=== PATIENT | female | born 1980 | race Caucasian/White ===

== ENCOUNTER 2018-02-20 18:27 | Inpatient (IN) ==
--- NOTE | 2018-02-20 18:38 | Emergency Department Note ---
ED Disposition Clinical Impression: Hypoxia Community acquired pneumonia Qualifiers: Laterality: right Lung location: lower lobe of lung Qualified Code(s): J18.1 - Lobar pneumonia, unspecified organism Disposition: Admitted As Inpatient Condition on Discharge: Fair Referrals: Provider,Referral, [Primary Care Provider] - Time of Disposition: : - Critical Care Critical Care Time: Yes (Hypoxia,pneumonia) Attestation: On , the high probability of a clinically significant, sudden or life threatening deterioration of the following system(s) required my full and direct attention, intervention and personal management. The time I documented below is in addition to time spent performing reported procedures but includes the following listed in this critical care notation. Total Critical Care Time: 60 Vital system(s) involved:: Respiratory Failure My critical care processes included: Assessment & monitoring of V/S, Initial and Re-exams, Data Review/Interpretation, Coordinating Care, Medication Orders and management, Documentation Medical Decision Making - Medical Records Medical records reviewed: Yes: I reviewed the patient's medical records. - Nikita Inquiry Pt receiving controlled substance: No Nikita was queried for this patient: No Vital Signs: 02/20/18 18:27 02/20/18 19:15 02/20/18 19:36 Temperature 98.1 F Temperature Source Oral Pulse Rate 106 H Pulse Rate [Left Radial] 94 H Respiratory Rate 30 H Blood Pressure [Right Arm] 168/93 Blood Pressure Mean [Right Arm] 118 Blood Pressure Source [Right Arm] Automatic Cuff Blood Pressure Position [Right Arm] Sitting 02 Sat by Pulse Oximetry 94 L 92 L Oxygen Delivery Method Non-Rebreather Venturi Mask Oxygen Flow Rate (LPM) 15 12 - Lab Data Lab Results 02/20/18 18:40: WBC 16.0 H, RBC 4.92, Hgb 15.2, Hct 46.7, MCV 95.0, MCH 31.0, MCHC 32.6, RDW 14.4, Plt Count 360, MPV 8.0, Neut % (Auto) 85.2 H, Lymph % (Auto) 9.6 L, [place] % (Auto) 4.2, Eos % (Auto) 0.7, Baso % (Auto) 0.3, Neut # (Auto) 13.7 H, Lymph # (Auto) 1.5, [place] # (Auto) 0.7, Eos # (Auto) 0.1, Baso # (Auto) 0.1, Total Counted 100, Neutrophils % (Manual) 90 H, Band Neutrophils % 4.0, Lymphocytes % (Manual) 5 L, Monocytes % (Manual) 1 L, Platelet Estimate Normal, RBC Morphology Normal 02/20/18 18:40: Sodium 140, Potassium 3.5, Chloride 104, Carbon Dioxide 24, Anion Gap 15.5 H, BUN 12, Creatinine 1.01, Estimated Creat Clear 129, Estimated GFR 61, Est GFR ( Amer) 74, Glucose 117 H, Calcium 8.7, Troponin I < 0.02 02/20/18 18:40: Lactate 1.6 02/20/18 18:40: B-Natriuretic Peptide 565 H Result diagrams: 02/20/18 18:40 02/20/18 18:40 Orders (Tests/Meds): ED MEDICATIONS Generic Name Dose Route Start Last Admin Trade Name Hong PRN Reason Stop Dose Admin Ceftriaxone Sodium 1 gm/ 50 mls @ 100 mls/hr 02/20/18 19:15 02/20/18 19:21 Sodium Chloride IV 03/06/18 19:14 100 mls/hr Q24H RICHARD Administration Protocol Azithromycin 500 mg/ Sodium 250 mls @ 250 mls/hr 02/20/18 19:15 02/20/18 19:34 Chloride IV 03/06/18 19:14 250 mls/hr Q24H RICHARD Administration Protocol Discontinued Medications Generic Name Dose Route Start Last Admin Trade Name Hong PRN Reason Stop Dose Admin Albuterol/Ipratropium 3 ml 02/20/18 18:35 02/20/18 18:41 Duoneb 3ml Neb IH 02/20/18 18:36 3 ml ONCE ONE Administration Furosemide 40 mg 02/20/18 18:35 02/20/18 18:41 Lasix 40mg/4ml Vial IV 02/20/18 18:36 40 mg ONCE ONE Administration Methylprednisolone Sodium Succinate 125 mg 02/20/18 18:35 02/20/18 18:41 Solu-Medrol 125mg/2ml Vial IV 02/20/18 18:36 125 mg ONCE ONE Administration ORDERS Category Date Time Status Blood Culture Stat Micro 02/20/18 18:40 Received ECG Request by /Nse Stat Y 02/20/18 18:34 Ordered General Adult HPI - General Chief complaint: Shortness of Breath/Dyspnea Stated complaint: SOA Time Seen by Provider: 02/20/18 18:40 Source of Information: Patient - History of Present Illness Onset (ago): hour(s) (5) Location: chest Severity: moderate Quality: constant Consistency: constant Relieving factors: none Exacerbating factors: none Associated symptoms: cough Treatments prior to arrival: none - Related Data Home Medications Medication Instructions Recorded Confirmed No Known Home Medications 02/20/18 02/20/18 Allergies Allergy/AdvReac Type Severity Reaction Status Date / Time No Known Allergies Allergy Unverified 05/20/17 14:37 [facility] History I have reviewed the patient's past medical history: Yes ROS Obtained: Yes All systems reviewed & no additional complaints - Constitutional Constitutional: Reports system reviewed and no additional complaints, except as docu - Cardiovascular Cardiovascular: Reports system reviewed and no additional complaints, except as docu - Respiratory Respiratory: Yes cough, Yes dyspnea, Yes dyspnea on exertion, Yes wheezing - Gastrointestinal Gastrointestingal: Reports: system reviewed and no additional complaints, except as docu - Musculoskeletal Musculoskeletal: Reports system reviewed and no additional complaints, except as docu - Neurologic Neurologic: Reports system reviewed and no additional complaints, except as docu Physical Exam - General General appearance: alert, in distress (in moderate distress) - Head Head exam: atraumatic, normocephalic, normal inspection - Neck Neck exam: Present: normal inspection, full ROM, trachea midline. Absent: meningismus, lymphadenopathy - Respiratory Respiratory exam: Present: respiratory distress - Expanded Respiratory Exam Location: Right: rales, Lower: rales, decreased breath sounds - Cardiovascular Cardiovascular exam: Present: normal rhythm, tachycardia, normal heart sounds. Absent: JVD - Abdominal Exam Abdominal exam: Present: soft, normal bowel sounds. Absent: distention, tenderness, guarding - Neurological Exam Neurological exam: Present: alert, oriented X3 - Psychiatric Psychiatric exam: Present: normal affect, normal mood
[2018-02-20 18:53] LABS: Basophils # 0.1 K/mm3 (0-0.2); Basophils % 0.3 % (0.1-2.0); Eosinophils # 0.1 K/mm3 (0.0-0.4); Eosinophils % 0.7 % (0.1-12.0); Hematocrit 46.7 % (37.0-47.0); Hemoglobin 15.2 g/dL (12.2-16.2); Lymphocytes # 1.5 K/mm3 (0.7-4.5); Lymphocytes % 9.6 K/mm3 (10-50); Mean Corpuscular HGB Conc 32.6 g/dL (31.8-35.4); Monocytes # 0.7 K/mm3 (0.1-1.0); Monocytes % 4.2 % (1.7-9.3); Neutrophils # 13.7 K/mm3 (1.8-7.8); Neutrophils % 85.2 % (37.0-80.0); Platelet Count 360 K/mm3 (142-424); Red Blood Count 4.92 M/mm3 (4.20-5.40); Red Cell Distribution Width 14.4 % (11.5-17.5)
[2018-02-20 19:16] LABS: Anion Gap 15.5 mEq/L (5-15); Blood Urea Nitrogen 12 mg/dL (7-18); Calcium 8.7 mg/dL (8.5-10.1); Carbon Dioxide 24 mmol/L (21.0-32.0); Chloride 104 mmol/L (98-107); Glucose 117 mg/dL (74-106); Potassium 3.5 mmoL/L (3.5-5.1); Sodium 140 mmol/L (136-145)
[2018-02-20 19:40] LABS: Lymphocytes % 5 % (10-50); Monocytes % 1 % (2-9); Neutrophils % 90 % (42-76); RBC Morphology Normal; Total Cells Counted 100
[2018-02-21 06:07] LABS: Basophils % 0.1 % (0.1-2.0); Eosinophils % 0.4 % (0.1-12.0); Hemoglobin 15.1 g/dL (12.2-16.2); Lymphocytes # 0.5 K/mm3 (0.7-4.5); Lymphocytes % 6.5 K/mm3 (10-50); Mean Corpuscular HGB Conc 32.2 g/dL (31.8-35.4); Mean Corpuscular Hemoglobin 30.6 pg (27.0-31.2); Mean Corpuscular Volume 95.1 fl (81-99); Mean Platelet Volume 8.1 fl (7.4-10.4); Monocytes # 0.2 K/mm3 (0.1-1.0); Monocytes % 2.2 % (1.7-9.3); Neutrophils # 7.5 K/mm3 (1.8-7.8); Neutrophils % 90.9 % (37.0-80.0); Platelet Count 307 K/mm3 (142-424); Red Blood Count 4.94 M/mm3 (4.20-5.40); Red Cell Distribution Width 14.2 % (11.5-17.5); White Blood Count 8.2 K/mm3 (4.8-10.8)
[2018-02-21 06:36] LABS: Calcium 8.7 mg/dL (8.5-10.1)
[2018-02-21 07:06] LABS: Lymphocytes % 4 % (10-50); Monocytes % 1 % (2-9); Neutrophils % 85 % (42-76); RBC Morphology Normal; Total Cells Counted 100
--- NOTE | 2018-02-21 08:20 | History & Physical Report ---
*Admission Date: 02/21/18 <NidiaAnna 02/21/18 08:29> *Chief complaint: SOA, cough <NidiaAnna 02/21/18 08:29> *History of present illness: Ms. Fonseca is a 37-year-old female with no significant medical history. She states over the past 3-4 days she has developed a productive cough and has felt poorly. Yesterday she began wheezing and became extremely short of breath. She presented to the emergency room and her oxygen saturation was in the 70s. A chest x-ray showed bilateral pneumonia. She was admitted for further evaluation and treatment. Of note she has had pneumonia one other time in the past approximately 3 years ago and she states at that time, the pneumonia did cause some type of heart problem and she had to be seen by Dr. Gamble. She has no PCP. <NidiaAnna 02/21/18 08:29> [facility] History Medical History: Denies:: Cancer, Diabetes Mellitus Type 1, Diabetes Mellitus Type 2, MRSA <Anna Jacob 02/21/18 08:29> Other Medical History: Reports: Sinus Problems <Tomer Jacoba 02/21/18 08:29> Other Surgeries: Yes: No Previous Surgery <Anna Jacob 02/21/18 08:29> - *Social History Educational Level: Attended High School <Anna Jacob 02/21/18 08:29> Smoking Status: Never smoker <Tmoer Jacoba 02/21/18 08:29> Alcohol Intake: never <Anna Jacob 02/21/18 08:29> Occupational Status: employed <Anna Jacob 02/21/18 08:29> Housing: house <Anna Jacob 02/21/18 08:29> Household Members: spouse, children <Anna Jacob 02/21/18 08:29> - Psychiatric History Expresses thoughts of harming self/others: None <Anna Jacob 02/21/18 08:29> Suicide Plan Description: No Plan <Anna Jacob 02/21/18 08:29> *Family Hx:: Asthma, Cancer, Diabetes, Heart Attack, Hypertension <Anna Jacob 02/21/18 08:29> Review of Systems - Constitutional Reports weakness, Denies chills, Denies fever(s) <NidiaAnna 02/21/18 08:29> - Eyes Denies blurry vision, Denies double vision <MinavilmaAnna 02/21/18 08:29> - ENT Denies nasal congestion, Denies sore throat <MinavilmaAnna 02/21/18 08:29> - *Cardiovascular Denies chest pain, Denies rapid, pounding, or irregular heartbeat <NidiaAnna 02/21/18 08:29> - *Respiratory Reports chest congestion, Reports cough, Reports shortness of breath, Reports wheezing <MinavilmaAnna - 02/21/18 08:29> - *Gastrointestinal Denies abdominal pain, Denies loose stools, Denies nausea, Denies vomiting <MinavilmaAnna 02/21/18 08:29> - *Genitourinary Denies difficulty urinating, Denies painful urination <NidiaAnna 02/21/18 08:29> - *Musculoskeletal Denies joint pain, Denies body aches <MinavilmaAnna 02/21/18 08:29> - *Neurologic Reports headache(s), Denies dizziness <NidiaAnna 02/21/18 08:29> Meds Home Medications Medication Instructions Recorded Confirmed Type No Known Home Medications 02/20/18 02/20/18 History <FredoniaWero 02/21/18 08:49> Allergies Allergy/AdvReac Type Severity Reaction Status Date / Time No Known Allergies Allergy Unverified 05/20/17 14:37 <Valentino Gleasonian 02/21/18 08:49> Exam Vital signs and Labs for Last 24 Hours: Temp Pulse Resp BP Pulse Ox 97.0 F L 90 26 H 137/95 92 L 02/21/18 07:47 02/21/18 08:08 02/21/18 06:00 02/21/18 06:00 02/21/18 07:47 Laboratory Results - last 24 hr 02/20/18 18:40: WBC 16.0 H, RBC 4.92, Hgb 15.2, Hct 46.7, MCV 95.0, MCH 31.0, MCHC 32.6, RDW 14.4, Plt Count 360, MPV 8.0, Neut % (Auto) 85.2 H, Lymph % (Auto) 9.6 L, [place] % (Auto) 4.2, Eos % (Auto) 0.7, Baso % (Auto) 0.3, Neut # (Auto) 13.7 H, Lymph # (Auto) 1.5, [place] # (Auto) 0.7, Eos # (Auto) 0.1, Baso # (Auto) 0.1, Total Counted 100, Neutrophils % (Manual) 90 H, Band Neutrophils % 4.0, Lymphocytes % (Manual) 5 L, Monocytes % (Manual) 1 L, Platelet Estimate Normal, RBC Morphology Normal 02/20/18 18:40: Sodium 140, Potassium 3.5, Chloride 104, Carbon Dioxide 24, Anion Gap 15.5 H, BUN 12, Creatinine 1.01, Estimated Creat Clear 129, Estimated GFR 61, Est GFR ( Amer) 74, Glucose 117 H, Calcium 8.7, Troponin I < 0.02 02/20/18 18:40: Lactate 1.6 02/20/18 18:40: B-Natriuretic Peptide 565 H 02/21/18 05:50: WBC 8.2 D, RBC 4.94, Hgb 15.1, Hct 47.0, MCV 95.1, MCH 30.6, MCHC 32.2, RDW 14.2, Plt Count 307, MPV 8.1, Neut % (Auto) 90.9 H, Lymph % (Auto) 6.5 L, [place] % (Auto) 2.2, Eos % (Auto) 0.4, Baso % (Auto) 0.1, Neut # (Auto) 7.5, Lymph # (Auto) 0.5 L, [place] # (Auto) 0.2, Eos # (Auto) 0.0, Baso # (Auto) 0.0, Total Counted 100, Neutrophils % (Manual) 85 H, Band Neutrophils % 5.0, Lymphocytes % (Manual) 4 L, Atypical Lymphs % 5.0, Monocytes % (Manual) 1 L , Platelet Estimate Normal, RBC Morphology Normal 02/21/18 05:50: Sodium 143, Potassium 4.0, Chloride 105, Carbon Dioxide 28, Anion Gap 14.0, BUN 13, Creatinine 0.95, Estimated Creat Clear 137, Estimated GFR 65, Est GFR ( Amer) 79, Glucose 129 H, Calcium 8.7 <Wero Gleason - 02/21/18 08:49> Temp Pulse Resp BP Pulse Ox 97.0 F L 90 26 H 137/95 92 L 02/21/18 07:47 02/21/18 08:08 02/21/18 06:00 02/21/18 06:00 02/21/18 07:47 Laboratory Results - last 24 hr 02/20/18 18:40: WBC 16.0 H, RBC 4.92, Hgb 15.2, Hct 46.7, MCV 95.0, MCH 31.0, MCHC 32.6, RDW 14.4, Plt Count 360, MPV 8.0, Neut % (Auto) 85.2 H, Lymph % (Auto) 9.6 L, [place] % (Auto) 4.2, Eos % (Auto) 0.7, Baso % (Auto) 0.3, Neut # (Auto) 13.7 H, Lymph # (Auto) 1.5, [place] # (Auto) 0.7, Eos # (Auto) 0.1, Baso # (Auto) 0.1, Total Counted 100, Neutrophils % (Manual) 90 H, Band Neutrophils % 4.0, Lymphocytes % (Manual) 5 L, Monocytes % (Manual) 1 L, Platelet Estimate Normal, RBC Morphology Normal 02/20/18 18:40: Sodium 140, Potassium 3.5, Chloride 104, Carbon Dioxide 24, Anion Gap 15.5 H, BUN 12, Creatinine 1.01, Estimated Creat Clear 129, Estimated GFR 61, Est GFR ( Amer) 74, Glucose 117 H, Calcium 8.7, Troponin I < 0.02 02/20/18 18:40: Lactate 1.6 02/20/18 18:40: B-Natriuretic Peptide 565 H 02/21/18 05:50: WBC 8.2 D, RBC 4.94, Hgb 15.1, Hct 47.0, MCV 95.1, MCH 30.6, MCHC 32.2, RDW 14.2, Plt Count 307, MPV 8.1, Neut % (Auto) 90.9 H, Lymph % (Auto) 6.5 L, [place] % (Auto) 2.2, Eos % (Auto) 0.4, Baso % (Auto) 0.1, Neut # (Auto) 7.5, Lymph # (Auto) 0.5 L, [place] # (Auto) 0.2, Eos # (Auto) 0.0, Baso # (Auto) 0.0, Total Counted 100, Neutrophils % (Manual) 85 H, Band Neutrophils % 5.0, Lymphocytes % (Manual) 4 L, Atypical Lymphs % 5.0, Monocytes % (Manual) 1 L , Platelet Estimate Normal, RBC Morphology Normal 02/21/18 05:50: Sodium 143, Potassium 4.0, Chloride 105, Carbon Dioxide 28, An ion Gap 14.0, BUN 13, Creatinine 0.95, Estimated Creat Clear 137, Estimated GFR 65, Est GFR ( Amer) 79, Glucose 129 H, Calcium 8.7 <NidiaAnna - 02/21/18 08:29> I & O for Last 24 hours: Intake & Output 02/18/18 02/19/18 02/20/18 02/21/18 11:59 11:59 11:59 11:59 Intake Total 1127 / 1127 Output Total 400 / 400 Balance 727 / 727 Weight 240 lb 3 oz <Wero Gleason - 02/21/18 08:49> Intake & Output 02/18/18 02/19/18 02/20/18 02/21/18 11:59 11:59 11:59 11:59 Intake Total 1127 / 1127 Output Total 400 / 400 Balance 727 / 727 Weight 240 lb 3 oz <NidiaAnna - 02/21/18 08:29> - Constitutional no acute distress <NidiaAnna - 02/21/18 08:29> - *Routine HEENT Exam Head: Present: normocephalic <NidiaAnna 02/21/18 08:29> Eye: Present: EOMI, PERRL <Anna Jacob 02/21/18 08:29> ENT: Present: mucous membranes moist <NidiaAnna 02/21/18 08:29> - *Routine Neck Exam Present: supple. Absent: carotid bruit, lymphadenopathy <Anna Jacob - 0 02/21/18 08:29> - *Routine Respiratory Exam Present: decreased breath sounds (left base), rales (right base). Absent: wheezes <Anna Jacob 02/21/18 08:29> - *Routine Cardiovascular Exam Present: RRR <Anna Jacob 02/21/18 08:29> - *Routine Abdominal Exam Present: soft, normoactive bowel sounds. Absent: tenderness <Anna Jacob 02/21/18 08:29> - *Routine Extremities Exam Absent: cyanosis, clubbing, edema <Anna Jacob 02/21/18 08:29> - *Routine Skin Exam Present: warm. Absent: rash <Anna Jacob 02/21/18 08:29> - *Routine Neurological Exam Present: alert, oriented X3 <Anna Jacob 02/21/18 08:29> H&P: Result - Impressions CXR 1. Bilateral pneumonic appearing infiltrates.- Most extensive throughout right lung more so than left left. The bibasilar infiltrates are most pronounced , but also with areas of diffuse infiltrate throughout RUL & small area of patchy infiltrate left midlung 2. Mild vascular engorgement. Question subtle vascular congestion compared to previous CXR study. Also Question some subtle septal lines right CP angle-May reflect mild interstitial edema component right base <Anna Jacob 02/21/18 08:29> Assessment and Plan (1) Community acquired pneumonia Current visit: Yes Status: Acute Qualifiers: Laterality: right Lung location: lower lobe of lung Qualified Code(s): J18.1 - Lobar pneumonia, unspecified organism Category: Medical Code(s): J18.9 - Pneumonia, unspecified organism (2) Hypoxia Current visit: Yes Status: Acute Category: Medical Code(s): R09.02 - Hypoxemia <Wero Gleason - 02/21/18 08:49> (1) Community acquired pneumonia Current visit: Yes Status: Acute Qualifiers: Laterality: right Lung location: lower lobe of lung Qualified Code(s): J18.1 - Lobar pneumonia, unspecified organism Category: Medical Code(s): J18.9 - Pneumonia, unspecified organism (2) Hypoxia Current visit: Yes Status: Acute Category: Medical Code(s): R09.02 - Hypoxemia <Anna Jacob - 02/21/18 08:17> - Assessment and plan all Dx Assessment and Plan for all problems:: Saw patient, agree with above note. <Wero Gleason - 02/21/18 08:49> Will continue abx and add nebs prn. White blood cell count has improved and patient is feeling much better. Her sats are still 89 on 2 L. Will discuss moving her out of stepdown with Dr. Gleason. <Anna Jacob - 02/21/18 08:29>
--- NOTE | 2018-02-21 10:15 | Pharmacy Consult Notes ---
[facility] Pharmacy VTE Monitoring - Patient Demographics Admission date: 02/21/18 Report Date: 02/21/18 Time: 10:15 Allergies/Adverse Reactions: Patient Allergies No Known Allergies Allergy (Unverified 05/20/17 14:37) Height: 1.7 m Weight: 108.947 kg Patient Problems: Current Active Problems Community acquired pneumonia (Acute) Hypoxia (Acute) - VTE Risk Labs: VTE Related Lab Results Hgb 15.1 g/dL (12.2-16.2) 02/21/18 05:50 Hct 47.0 % (37.0-47.0) 02/21/18 05:50 Plt Count 307 K/mm3 (142-424) 02/21/18 05:50 BUN 13 mg/dL (7-18) 02/21/18 05:50 Creatinine 0.95 mg/dL (0.55-1.02) 02/21/18 05:50 Estimated Creat Clear 137 mL/min (0-300) 02/21/18 05:50 VTE Score: 1 VTE Risk Level: Very Low Risk - Prophylaxis Types of VTE Prophylaxis: TEDS Thigh High
[2018-02-22 06:42] LABS: Basophils % 0.2 % (0.1-2.0); Eosinophils # 0.1 K/mm3 (0.0-0.4); Eosinophils % 1.5 % (0.1-12.0); Hemoglobin 13.3 g/dL (12.2-16.2); Lymphocytes # 0.9 K/mm3 (0.7-4.5); Lymphocytes % 10.3 K/mm3 (10-50); Mean Corpuscular HGB Conc 31.6 g/dL (31.8-35.4); Mean Corpuscular Hemoglobin 30.4 pg (27.0-31.2); Mean Corpuscular Volume 96.2 fl (81-99); Mean Platelet Volume 8.3 fl (7.4-10.4); Monocytes # 0.6 K/mm3 (0.1-1.0); Neutrophils # 7.5 K/mm3 (1.8-7.8); Platelet Count 300 K/mm3 (142-424); Red Blood Count 4.36 M/mm3 (4.20-5.40); Red Cell Distribution Width 14.3 % (11.5-17.5); White Blood Count 9.1 K/mm3 (4.8-10.8)
[2018-02-22 06:51] LABS: Anion Gap 11.7 mEq/L (5-15); Potassium 3.7 mmoL/L (3.5-5.1)
--- NOTE | 2018-02-22 10:40 | Progress Note ---
Internal Medicine - PN: Subj *Date: 02/22/18 *Time: 10:38 Interval history: Patient feels better today, she has been weaned off of supplemental oxygen and would like to be discharged home today. Exam Vital signs and Labs for Last 24 Hours: Temp Pulse Resp BP Pulse Ox 98.0 F 90 17 136/79 91 L 02/22/18 04:00 02/22/18 04:00 02/22/18 04:00 02/22/18 04:00 02/22/18 04:00 Laboratory Results - last 24 hr 02/22/18 06:05: WBC 9.1, RBC 4.36, Hgb 13.3, Hct 42.0, MCV 96.2, MCH 30.4, MCHC 31.6 L, RDW 14.3, Plt Count 300, MPV 8.3, Neut % (Auto) 82.0 H, Lymph % (Auto) 10.3, [place] % (Auto) 6.0, Eos % (Auto) 1.5, Baso % (Auto) 0.2, Neut # (Auto) 7.5, Lymph # (Auto) 0.9, [place] # (Auto) 0.6, Eos # (Auto) 0.1, Baso # (Auto) 0.0 02/22/18 06:05: Sodium 144, Potassium 3.7, Chloride 110 H, Carbon Dioxide 26, Anion Gap 11.7, BUN 21 H D, Creatinine 0.98, Estimated Creat Clear 135, Estimated GFR 63, Est GFR ( Amer) 76, Glucose 104, Calcium 8.0 L I & O for Last 24 hours: Intake & Output 02/19/18 02/20/18 02/21/18 02/22/18 11:59 11:59 11:59 11:59 Intake Total 1127 / 1127 3047 / 3047 Output Total 400 / 400 1500 / 1500 Balance 727 / 727 1547 / 1547 Weight 240 lb 3 oz 245 lb 6 oz Microbiology Reports for the Last 24 Hours: Microbiology 02/21/18 08:15 Sputum - Expectorated Sputum Gram Stain - Final - Constitutional no acute distress - *Routine HEENT Exam Head: Present: normocephalic Eye: Present: EOMI, PERRL ENT: Present: mucous membranes moist - *Routine Neck Exam Present: supple. Absent: lymphadenopathy - *Routine Respiratory Exam Present: CTA bilaterally (left), crackles (few in right base) - *Routine Cardiovascular Exam Present: RRR - *Routine Abdominal Exam Present: soft, normoactive bowel sounds. Absent: tenderness - *Routine Extremities Exam Absent: cyanosis, clubbing, edema - *Routine Skin Exam Present: warm. Absent: rash - *Routine Neurological Exam Present: alert, oriented X3 Assessment and Plan (1) Community acquired pneumonia Current visit: Yes Status: Acute Qualifiers: Laterality: right Lung location: lower lobe of lung Qualified Code(s): J18.1 - Lobar pneumonia, unspecified organism Category: Medical Code(s): J18.9 - Pneumonia, unspecified organism (2) Hypoxia Current visit: Yes Status: Acute Category: Medical Code(s): R09.02 - Hypoxemia - Assessment and plan all Dx Assessment and Plan for all problems:: OK to discharge today with outpatient f/u in about 10 days
--- NOTE | 2018-02-23 15:13 | Discharge Summary ---
General - General Admission date:: 02/20/18 Discharge date: 02/22/18 HPI HPI: Ms. Fonseca is a 37-year-old female with no significant medical history. She states over the past 3-4 days she has developed a productive cough and has felt poorly. Yesterday she began wheezing and became extremely short of breath. She presented to the emergency room and her oxygen saturation was in the 70s. A chest x-ray showed bilateral pneumonia. She was admitted for further evaluation and treatment. Of note she has had pneumonia one other time in the past approximately 3 years ago and she states at that time, the pneumonia did cause some type of heart problem and she had to be seen by Dr. Gamble. She has no PCP. Hospital Course Hospital Course: The patient's CXR showed bilateral pneumonia. She was started on abx and nebs as well as oxygen. She did feel better and was weaned off of supplemental oxygen. She was stable to be discharged home on abx and nebs and will f/u at [facility]. Objective Vital signs: Temp Pulse Resp BP Pulse Ox 98.5 F 92 H 22 148/71 92 L 02/22/18 08:00 02/22/18 12:00 02/22/18 08:00 02/22/18 08:00 02/22/18 08:00 Narrative: - Constitutional no acute distress - *Routine HEENT Exam Head: Present: normocephalic Eye: Present: EOMI, PERRL ENT: Present: mucous membranes moist - *Routine Neck Exam Present: supple. Absent: carotid bruit, lymphadenopathy - *Routine Respiratory Exam Present: decreased breath sounds (left base), rales (right base). Absent: wheezes - *Routine Cardiovascular Exam Present: RRR - *Routine Abdominal Exam Present: soft, normoactive bowel sounds. Absent: tenderness - *Routine Extremities Exam Absent: cyanosis, clubbing, edema - *Routine Skin Exam Present: warm. Absent: rash - *Routine Neurological Exam Present: alert, oriented X3 Results Labs on day of discharge: Preliminary micro results at discharge 02/20/18 18:40 Blood Culture - Preliminary Blood NO GROWTH AFTER 48 HOURS 02/20/18 18:40 Blood Culture - Preliminary Blood NO GROWTH AFTER 48 HOURS DS: Diagnosis - Discharge Diagnosis (1) Community acquired pneumonia Status: Acute (2) Hypoxia Status: Acute Discharge Plan - Patient Discharge Instructions ACTIVITY: Continue current activity DIET: continue same diet Patient Instructions: Pneumonia-Adult - Follow up Plan Follow up with: Wero Gleason MD [Staff Physician] - 03/03/18 Disposition: Home, Self-Intermediate Medications: Home Medications Medication Instructions Recorded Confirmed Type No Known Home Medications 02/20/18 02/20/18 History Prescriptions/Medication Reconciliation: New Azithromycin [Z-Sudhakar 250mg Tab] 250 mg PO UD DOSE PK #6 tab cefUROXime axetil [Ceftin 500mg Tab (GEQ)] 500 mg PO BID #14 tab Albuterol Sulfate [Albuterol HFA Inhaler] 1 puff IH Q4HP PRN #1 inh PRN Reason: Shortness Of Breath Or Wheezing No Action No Known Home Medications
== END 2018-02-22 11:40 | disposition home or self-care (01) ==
LOC: ER 18:27 → 2ND 22:12
PROVIDERS: ADMIT Family Medicine; ATTEND Family Medicine
DX: J18.9 Pneumonia, unspecified organism
CPT/HCPCS: 36415; 71020; 71046; 80048; 83605; 83880; 84484; 85007; 85025; 87040; 87070; 87205; 93005; 94640; 94761; 96365; 96367; 96375; 99284; J0456; J2405

== ENCOUNTER 2018-03-12 23:24 | Inpatient (IN) ==
[2018-03-12 23:50] LABS: Basophils % 0.4 % (0.1-2.0); Eosinophils # 0.1 K/mm3 (0.0-0.4); Hematocrit 50.7 % (37.0-47.0); Hemoglobin 16.1 g/dL (12.2-16.2); Lymphocytes % 18.1 K/mm3 (10-50); Mean Corpuscular HGB Conc 31.8 g/dL (31.8-35.4); Mean Corpuscular Hemoglobin 30.8 pg (27.0-31.2); Mean Platelet Volume 7.9 fl (7.4-10.4); Monocytes # 0.5 K/mm3 (0.1-1.0); Monocytes % 4.3 % (1.7-9.3); Neutrophils # 8.3 K/mm3 (1.8-7.8); Neutrophils % 76.2 % (37.0-80.0); Platelet Count 422 K/mm3 (142-424); Red Blood Count 5.23 M/mm3 (4.20-5.40); Red Cell Distribution Width 14.4 % (11.5-17.5); White Blood Count 10.9 K/mm3 (4.8-10.8)
[2018-03-12 23:54] LABS: ABG Base Excess -3.7 mmol/L (-2.4-2.3); ABG HCO3 20.4 mmhg (22.0-26.0); ABG Oxygen Saturation 89 % (90-100); ABG PCO2 30.3 mmhg (35.0-45.0); ABG PH 7.45 mmol/L (7.35-7.45); ABG PO2 53.8 mmhg (80-100); ABG TCO2 21.3 mmhg (23-27)
[2018-03-12 23:56] LABS: Allen's Test Acceptable; Oxygen 28% NC %
[2018-03-13 00:07] LABS: Anion Gap 15.8 mEq/L (5-15); Blood Urea Nitrogen 20 mg/dL (7-18); Calcium 9.6 mg/dL (8.5-10.1); Carbon Dioxide 22 mmol/L (21.0-32.0); Chloride 107 mmol/L (98-107); Glucose 146 mg/dL (74-106); Potassium 3.8 mmoL/L (3.5-5.1); Sodium 141 mmol/L (136-145)
[2018-03-13 01:20] LABS: Coronavirus 229E Not Detected (NotDetected); Coronavirus NL63 Not Detected (NotDetected); Coronavirus OC43 Not Detected (NotDetected); Coronovirus HKU1,PCR Not Detected (NotDetected)
--- NOTE | 2018-03-13 01:55 | Emergency Department Note ---
ED Disposition Clinical Impression: HCAP (healthcare-associated pneumonia) Disposition: Admitted As Inpatient Condition on Discharge: Good - Critical Care Critical Care Time: No Attestation: On 03/12/18, the high probability of a clinically significant, sudden or life threatening deterioration of the following system(s) required my full and direct attention, intervention and personal management. The time I documented below is in addition to time spent performing reported procedures but includes the following listed in this critical care notation. Medical Decision Making - Medical Records Medical records reviewed: Yes: I reviewed the patient's medical records. - Nikita Inquiry Pt receiving controlled substance: No Vital Signs: 03/12/18 23:28 03/12/18 23:52 03/13/18 00:34 Temperature 97.8 F Temperature Source Oral Pulse Rate [Right Radial] 125 H 120 H 119 H Respiratory Rate 24 24 20 Blood Pressure [Right Arm] 177/105 H 176/103 H 163/102 H Blood Pressure Mean [Right Arm] 129 127 122 Blood Pressure Source [Right Arm] Automatic Cuff Automatic Cuff Automatic Cuff Blood Pressure Position [Right Arm] Sitting Sitting Sitting 02 Sat by Pulse Oximetry 83 L 85 L 95 Oxygen Delivery Method Room Air Nasal Cannula Nasal Cannula Oxygen Flow Rate (LPM) 2 4 03/13/18 01:00 03/13/18 02:00 Temperature Temperature Source Pulse Rate [Right Radial] 116 H 114 H Respiratory Rate 22 24 Blood Pressure [Right Arm] 163/95 H 166/99 H Blood Pressure Mean [Right Arm] 117 121 Blood Pressure Source [Right Arm] Automatic Cuff Automatic Cuff Blood Pressure Position [Right Arm] Supine Supine 02 Sat by Pulse Oximetry 95 92 L Oxygen Delivery Method Nasal Cannula Nasal Cannula Oxygen Flow Rate (LPM) 4 4 - Lab Data Lab results reviewed: Yes: I reviewed the patient's lab results. Lab Results 03/12/18 23:38: Specimen Source Left radial, O2 % 28% nc, ABG pH 7.45, ABG pCO2 30.3 L, ABG pO2 53.8 L, ABG HCO3 20.4 L, ABG Total CO2 21.3 L, ABG O2 Saturation 89 L, ABG Base Excess -3.7 L, Mac Test Acceptable 03/12/18 23:40: WBC 10.9 H, RBC 5.23, Hgb 16.1, Hct 50.7 H, MCV 97.0, MCH 30.8, MCHC 31.8, RDW 14.4, Plt Count 422, MPV 7.9, Neut % (Auto) 76.2, Lymph % (Auto) 18.1, [place] % (Auto) 4.3, Eos % (Auto) 1.0, Baso % (Auto) 0.4, Neut # (Auto) 8.3 H, Lymph # (Auto) 2.0, [place] # (Auto) 0.5, Eos # (Auto) 0.1, Baso # (Auto) 0.0 03/12/18 23:40: D-Dimer 375 03/12/18 23:40: Sodium 141, Potassium 3.8, Chloride 107, Carbon Dioxide 22, Anion Gap 15.8 H, BUN 20 H, Creatinine 1.12 H, Estimated Creat Clear 111, Estimated GFR 54 L, Est GFR ( Amer) 66, Glucose 146 H, Calcium 9.6, Troponin I < 0.02 03/12/18 23:40: Lactate 2.4 H Result diagrams: 03/12/18 23:40 03/12/18 23:40 Orders (Tests/Meds): ED MEDICATIONS Generic Name Dose Route Start Last Admin Trade Name Freq PRN Reason Stop Dose Admin Levofloxacin/Dextrose 750 mg in 150 mls @ 100 mls/hr 03/13/18 02:00 03/13/18 01:59 Levofloxacin 750mg/150ml Premix IV 03/27/18 01:59 100 mls/hr Q24H RICHARD Administration Protocol Piperacillin Sod/Tazobactam 100 mls @ 200 mls/hr 03/13/18 02:00 Sod 4.5 gm/ Sodium Chloride IV 03/27/18 01:59 Q6H RICHARD Protocol Discontinued Medications Generic Name Dose Route Start Last Admin Trade Name Freq PRN Reason Stop Dose Admin Albuterol/Ipratropium 3 ml 03/12/18 23:38 03/12/18 23:42 Duoneb 3ml Neb IH 03/12/18 23:39 3 ml ONCE ONE Administration Furosemide 20 mg 03/13/18 01:29 03/13/18 01:31 Lasix 20mg/2ml Vial IV 03/13/18 01:30 20 mg ONCE ONE Administration Sodium Chloride 1,000 mls @ 999 mls/hr 03/12/18 23:45 03/13/18 00:35 Sod Chlor 0.9% 1000ml Bag IV 03/13/18 00:45 999 mls/hr .Q1H1M RICHARD Administration Methylprednisolone Sodium Succinate 125 mg 03/12/18 23:38 03/12/18 23:42 Solu-Medrol 125mg/2ml Vial IV 03/12/18 23:39 125 mg ONCE ONE Administration ORDERS Category Date Time Status XR chest 2V Stat Exams 03/12/18 23:38 Taken Upper Respiratory Panel, PCR Stat Lab 03/13/18 01:19 Received Blood Culture Stat Micro 03/12/18 23:39 Ordered Arterial Blood Gas Stat RT 03/12/18 23:38 Ordered ECG Request by /Cholo Stat Y 03/12/18 23:38 Ordered - Radiology Data #1 Image(s): Chest Image Reviewed: Yes I reviewed the patient's radiology image Preliminary Findings: Abnormal (bilat pneummonia) - ECG Data Tracing #1 I reviewed this ECG and interpreted as documented below: Arrhythmias present: sinus tach Ischemic changes: non-specific ST-T wave changes - Physician Consults Physician Consulted: javed Reason -: Admission Resp/SOB HPI - General Chief Complaint: Shortness of Breath/Dyspnea Stated Complaint: SOB Time Seen by Provider: 03/12/18 23:50 Mode of Arrival: Ambulatory Limitations: No Limitations Description of Symptoms (Recalled from ER Triage Doc. by RN): Pt reports she had pnumonia and completed antibiotic therapy about 2wks ago. She reports she felt better and then started feeling bad yesterday with productive cough and difficulty breathing. - History of Present Illness pt had been admitted in late jan for cap and treated with iv abx and finished po abx and was doing better and seen by pcp as op last week - over the last 2 days has prod cough and progressive sob with no fever or rash - pt with no hemoptysis MD Complaint: shortness of breath, cough Onset (ago): day(s) Context: recent illness Severity: moderate Associated symptoms: pain with inspiration, cough Treatment prior to arrival: bronchodilator - Related Data Home oxygen amount: none Home Medications Medication Instructions Recorded Confirmed No Known Home Medications 03/13/18 03/13/18 Allergies Allergy/AdvReac Type Severity Reaction Status Date / Time No Known Allergies Allergy Verified 03/12/18 23:36 - Well's Criteria PE Score Clinical signs/symptoms of DVT: No PE is #1 diagnosis or equally likely: No Heart rate is > 100: Yes Immobile at least 3 days, or surgery in past 4 wks: No Previously, obj. diagnosed PE or DVT: No Hemoptysis: No Malignancy w/Rx within 6mo, or palliative: No PE Score: 1 [facility] History I have reviewed the patient's past medical history: Yes Medical History: Denies:: Cancer, Diabetes Mellitus Type 1, Diabetes Mellitus Type 2, MRSA Other Medical History: Reports: Sinus Problems Other Surgeries: Yes: No Previous Surgery - Social History Smoking Status: Never smoker Alcohol Intake: never Occupational Status: employed Housing: house Household Members: spouse, children - Psychiatric History Expresses thoughts of harming self/others: None Suicide Plan Description: No Plan Family Hx:: Asthma, Cancer, Diabetes, Heart Attack, Hypertension ROS Obtained: Yes All systems reviewed & no additional complaints - Constitutional Constitutional: Denies fever(s) - Eyes Eyes: Denies change in vision - ENT Ears, Nose, Mouth, and Throat: Denies sore throat - Cardiovascular Cardiovascular: Denies chest pain - Respiratory Respiratory: No change in phlegm color, Yes cough, Yes dyspnea - Gastrointestinal Gastrointestingal: Denies: abdominal pain - Genitourinary Female Genitourinary: Denies hematuria - Musculoskeletal Musculoskeletal: Denies joint pain - Integumentary/Breasts Skin/Breast: Denies rash - Neurologic Neurologic: Denies seizure-like activity Physical Exam - General General appearance: alert, in no apparent distress - Head Head exam: normocephalic - Eye Eye exam: Present: PERRL, EOMI - ENT ENT exam: Present: mucous membranes moist - Neck Neck exam: Present: trachea midline - Respiratory Respiratory exam: Present: other. Absent: respiratory distress - Cardiovascular Cardiovascular exam: Present: regular rate. Absent: systolic murmur, rubs, gallop - Abdominal Exam Abdominal exam: Present: soft - Extremities Exam Extremities exam: Absent: calf tenderness - Neurological Exam Neurological exam: Present: alert, oriented X3, CN II-XII intact - Psychiatric Psychiatric exam: Present: normal affect - Skin Skin exam: Absent: rash
[2018-03-13 06:29] LABS: Basophils % 0.1 % (0.1-2.0); Eosinophils % 0.1 % (0.1-12.0); Hematocrit 47.5 % (37.0-47.0); Hemoglobin 14.8 g/dL (12.2-16.2); Lymphocytes # 0.4 K/mm3 (0.7-4.5); Mean Corpuscular HGB Conc 31.3 g/dL (31.8-35.4); Mean Corpuscular Hemoglobin 30.2 pg (27.0-31.2); Mean Corpuscular Volume 96.6 fl (81-99); Mean Platelet Volume 7.9 fl (7.4-10.4); Monocytes # 0.2 K/mm3 (0.1-1.0); Monocytes % 1.5 % (1.7-9.3); Neutrophils # 9.9 K/mm3 (1.8-7.8); Neutrophils % 94.3 % (37.0-80.0); Platelet Count 359 K/mm3 (142-424); Red Blood Count 4.91 M/mm3 (4.20-5.40); Red Cell Distribution Width 14.2 % (11.5-17.5); White Blood Count 10.5 K/mm3 (4.8-10.8)
[2018-03-13 06:40] LABS: Albumin Level 3.4 gm/dL (3.4-5.0); Albumin/Globulin Ratio 0.9 (1.1-1.8); Anion Gap 14.8 mEq/L (5-15); Bilirubin,Total 0.6 mg/dL (0.2-1.0); Globulin 3.6 gm/dl (1.3-3.2); Potassium 3.8 mmoL/L (3.5-5.1)
[2018-03-13 06:55] LABS: Lymphocytes % 2 % (10-50); Monocytes % 2 % (2-9); Neutrophils % 94 % (42-76); Total Cells Counted 100
[2018-03-13 06:56] LABS: RBC Morphology Normal
[2018-03-13 06:57] LABS: Calcium 8.6 mg/dL (8.5-10.1)
--- NOTE | 2018-03-13 07:48 | Pharmacy Consult Notes ---
[facility] Pharmacy VTE Monitoring - Patient Demographics Admission date: 03/13/18 Report Date: 03/13/18 Time: 07:47 Allergies/Adverse Reactions: Patient Allergies No Known Allergies Allergy (Verified 03/13/18 02:51) Height: 1.68 m Weight: 106.231 kg Patient Problems: Current Active Problems HCAP (healthcare-associated pneumonia) (Acute) - VTE Risk Labs: VTE Related Lab Results Hgb 14.8 g/dL (12.2-16.2) 03/13/18 05:49 Hct 47.5 % (37.0-47.0) H 03/13/18 05:49 Plt Count 359 K/mm3 (142-424) 03/13/18 05:49 BUN 15 mg/dL (7-18) 03/13/18 05:49 Creatinine 0.99 mg/dL (0.55-1.02) 03/13/18 05:49 Estimated Creat Clear 128 mL/min (0-300) 03/13/18 05:49 Was VTE Risk Assessment Performed: No VTE Score: 2 - Prophylaxis VTE Prophylaxis Ordered?: Yes Types of VTE Prophylaxis: TEDS Knee High Location of Applied Device: Bilateral Lower Extremeties - VTE Diagnosis Confirmed Treatment or plan recommended: Continue Current Treatment
--- NOTE | 2018-03-13 08:16 | History & Physical Report ---
*Admission Date: 03/13/18 <Anna Jacob 03/13/18 08:16> *Chief complaint: SOA, wheezing <Anna Jacob 03/13/18 08:24> *History of present illness: Ms. Fonseca is a 37-year-old female who was just recently discharged from [facility] after an admission for pneumonia. She did follow-up in the office on 03/06/[address] Berkowitz and had finished her antibiotics. She did have a cough and some shortness of breath at that time that had recently developed. Her CBC showed a white blood cell count of 12.7. She was felt to have allergies and was started on Flonase, Mucinex, and Zyrtec. The patient states last night she was at work and had to answer 3 call bells. By the time she got back to her desk, she was extremely short of air and wheezing, therefore her boss brought her to the emergency room to be evaluated. Her oxygen was in the 80s and she was found to have bilateral pneumonia on chest x-ray. She was admitted for further evaluation and treatment. Of note: Her last sputum culture came back normal and her chest x-ray at that time showed a worse pneumonia on the right rather than the left. Her chest x- ray from this admission shows a worsening pneumonia on the left and improvement on the right. <Anna Jacob 03/13/18 08:24> [facility] History Medical History: Reports:: Hypertension Denies:: Cancer, Diabetes Mellitus Type 1, Diabetes Mellitus Type 2, MRSA <Anna Jacob 03/13/18 08:16> Other Medical History: Reports: Sinus Problems <Anna Jacob 03/13/18 08:16> Other Surgeries: Yes: No Previous Surgery <Anna Jacob 03/13/18 08:16> Amputation: No <Anna Jacob 03/13/18 08:16> - *Social History Educational Level: Attended High School <Anna Jacob 03/13/18 08:16> Smoking Status: Never smoker <Anna Jacob 03/13/18 08:16> Alcohol Intake: never <Anna Jacob 03/13/18 08:16> Occupational Status: employed <Anna Jacob 03/13/18 08:16> Housing: house <Anna Jacob 03/13/18 08:16> Household Members: spouse, children <NidiaAnna 03/13/18 08:16> - Psychiatric History Expresses thoughts of harming self/others: None <Tomer Jacoba 03/13/18 08:16> Suicide Plan Description: No Plan <NidiaAnna 03/13/18 08:16> *Family Hx:: Asthma, Cancer, Diabetes, Heart Attack, Hypertension <NidiaMichelle 03/13/18 08:16> Review of Systems - Constitutional Reports fatigue, Denies chills, Denies fever(s), Denies headache(s) <NidiaAnna 03/13/18 08:24> - Eyes Denies blurry vision, Denies double vision <[facility] 03/13/18 08:24> - ENT Denies nasal congestion, Denies sore throat <NidiaAnna - 03/13/18 08:24> - *Cardiovascular Denies chest pain, Denies rapid, pounding, or irregular heartbeat <NidiaAnna - 03/13/18 08:24> - *Respiratory Reports cough, Reports shortness of breath, Reports wheezing <NidiaAnna - 03/13/18 08:24> - *Gastrointestinal Denies abdominal pain, Denies loose stools, Denies nausea, Denies vomiting <NidiaAnna - 03/13/18 08:24> - *Genitourinary Denies difficulty urinating, Denies painful urination <NidiaAnna - 03/13/18 08:24> - *Musculoskeletal Denies joint pain [facility] 03/13/[facility] 08:24> - *Neurologic Denies headache(s), Denies seizure-like activity, Denies dizziness, Denies weakness <NidiaAnna - 03/13/18 08:24> Meds Home Medications Medication Instructions Recorded Confirmed Type RX: Albuterol Sulfate [Albuterol 1 puff INHALATION Q4HP PRN 03/13/18 03/13/18 History HFA Inhaler] <Amira Berkowitz 03/13/18 12:39> Allergies Allergy/AdvReac Type Severity Reaction Status Date / Time No Known Allergies Allergy Verified 03/13/18 02:51 <Sound,Amira - 03/13/18 12:39> Exam Vital signs and Labs for Last 24 Hours: Temp Pulse Resp BP Pulse Ox 97.3 F L 106 H 20 124/86 94 L 03/13/18 11:34 03/13/18 11:40 03/13/18 11:34 03/13/18 11:34 03/13/18 11:40 Laboratory Results - last 24 hr 03/12/18 02:19: Specimen Source Left radial, O2 % 28% nc, ABG pH 7.45, ABG pCO2 30.3 L, ABG pO2 53.8 L, ABG HCO3 20.4 L, ABG Total CO2 21.3 L, ABG O2 Saturation 89 L, ABG Base Excess -3.7 L, Mac Test Acceptable 03/12/18 23:40: WBC 10.9 H, RBC 5.23, Hgb 16.1, Hct 50.7 H, MCV 97.0, MCH 30.8, MCHC 31.8, RDW 14.4, Plt Count 422, MPV 7.9, Neut % (Auto) 76.2, Lymph % (Auto) 18.1, [place] % (Auto) 4.3, Eos % (Auto) 1.0, Baso % (Auto) 0.4, Neut # (Auto) 8.3 H, Lymph # (Auto) 2.0, [place] # (Auto) 0.5, Eos # (Auto) 0.1, Baso # (Auto) 0.0 03/12/18 23:40: D-Dimer 375 03/12/18 23:40: Sodium 141, Potassium 3.8, Chloride 107, Carbon Dioxide 22, Anion Gap 15.8 H, BUN 20 H, Creatinine 1.12 H, Estimated Creat Clear 111, Estimated GFR 54 L, Est GFR ( Amer) 66, Glucose 146 H, Calcium 9.6, Troponin I < 0.02 03/12/18 23:40: Lactate 2.4 H 03/13/18 01:19: Chlamy pneumoniae PCR Not detected, Adenovirus (PCR) Not detected, B.parapertussis DNA PCR Not detected, Coronavirus OC43 (PCR) Not detected, Coronavirus HKU1 (PCR) Not detected, Coronavirus 229E (PCR) Not detected, Coronavirus NL63 (PCR) Not detected, Human Metapneumovir PCR Not detected, Influenza A (H1) PCR Not detected, Influ A (H1N1/09) PCR Not detected, Influenza A (H3) PCR Not detected, Influenza Type A (PCR) Not detected, In fluenza Type B (PCR) Not detected, M. pneumoniae (PCR) Not detected, Parainfluenza 1 (PCR) Not detected, Parainfluenza 2 (PCR) Not detected, Parainfluenza 3 (PCR) Not detected, Parainfluenza 4 (PCR) Not detected, RSV (PCR) Not detected, Entero/Rhino (PCR) Not detected 03/13/18 03:52: Lactate 1.8 03/13/18 05:49: WBC 10.5, RBC 4.91, Hgb 14.8, Hct 47.5 H, MCV 96.6, MCH 30.2, MCHC 31.3 L, RDW 14.2, Plt Count 359, MPV 7.9, Neut % (Auto) 94.3 H, Lymph % (Auto) 4.0 L, [place] % (Auto) 1.5 L, Eos % (Auto) 0.1, Baso % (Auto) 0.1, Neut # (Auto) 9.9 H, Lymph # (Auto) 0.4 L, [place] # (Auto) 0.2, Eos # (Auto) 0.0, Baso # (Auto) 0.0, Total Counted 100, Neutrophils % (Manual) 94 H, Lymphocytes % (Manual) 2 L, Atypical Lymphs % 2.0, Monocytes % (Manual) 2, Platelet Estimate Normal, RBC Morphology Normal 03/13/18 05:49: Sodium 141, Potassium 3.8, Chloride 106, Carbon Dioxide 24, Anion Gap 14.8, BUN 15, Creatinine 0.99, Estimated Creat Clear 128, Estimated GFR 62, Est GFR ( Amer) 76, Glucose 136 H, Calcium 8.6 D, Magnesium 1.8, Total Bilirubin 0.6, AST 39 H, ALT 104 H, Alkaline Phosphatase 104, Total Protein 7.0, Albumin 3.4, Globulin 3.6 H, Albumin/Globulin Ratio 0.9 L <Tin Berkowitza - 03/13/18 12:39> Temp Pulse Resp BP Pulse Ox 97.3 F L 111 H 20 96/68 L 94 L 03/13/18 07:37 03/13/18 07:37 03/13/18 07:37 03/13/18 07:37 03/13/18 07:37 Laboratory Results - last 24 hr 03/12/18 02:19: Specimen Source Left radial, O2 % 28% nc, ABG pH 7.45, ABG pCO2 30.3 L, ABG pO2 53.8 L, ABG HCO3 20.4 L, ABG Total CO2 21.3 L, ABG O2 Saturation 89 L, ABG Base Excess -3.7 L, Mac Test Acceptable 03/12/18 23:40: WBC 10.9 H, RBC 5.23, Hgb 16.1, Hct 50.7 H, MCV 97.0, MCH 30.8, MCHC 31.8, RDW 14.4, Plt Count 422, MPV 7.9, Neut % (Auto) 76.2, Lymph % (Auto) 18.1, [place] % (Auto) 4.3, Eos % (Auto) 1.0, Baso % (Auto) 0.4, Neut # (Auto) 8.3 H, Lymph # (Auto) 2.0, [place] # (Auto) 0.5, Eos # (Auto) 0.1, Baso # (Auto) 0.0 03/12/18 23:40: D-Dimer 375 03/12/18 23:40: Sodium 141, Potassium 3.8, Chloride 107, Carbon Dioxide 22, Anion Gap 15.8 H, BUN 20 H, Creatinine 1.12 H, Estimated Creat Clear 111, Estimated GFR 54 L, Est GFR ( Amer) 66, Glucose 146 H, Calcium 9.6, Troponin I < 0.02 03/12/18 23:40: Lactate 2.4 H 03/13/18 01:19: Chlamy pneumoniae PCR Not detected, Adenovirus (PCR) Not detected, B.parapertussis DNA PCR Not detected, Coronavirus OC43 (PCR) Not detected, Coronavirus HKU1 (PCR) Not detected, Coronavirus 229E (PCR) Not detected, Coronavirus NL63 (PCR) Not detected, Human Metapneumovir PCR Not detected, Influenza A (H1) PCR Not detected, Influ A (H1N1/09) PCR Not detected, Influenza A (H3) PCR Not detected, Influenza Type A (PCR) Not detected, Influenza Type B (PCR) Not detected, M. pneumoniae (PCR) Not detected, Parainfluenza 1 (PCR) Not detected, Parainfluenza 2 (PCR) Not detected, Parainfluenza 3 (PCR) Not detected, Parainfluenza 4 (PCR) Not detected, RSV (PCR) Not detected, Entero/Rhino (PCR) Not detected 03/13/18 03:52: Lactate 1.8 03/13/18 05:49: WBC 10.5, RBC 4.91, Hgb 14.8, Hct 47.5 H, MCV 96.6, MCH 30.2, MCHC 31.3 L, RDW 14.2, Plt Count 359, MPV 7.9, Neut % (Auto) 94.3 H, Lymph % (A uto) 4.0 L, [place] % (Auto) 1.5 L, Eos % (Auto) 0.1, Baso % (Auto) 0.1, Neut # (Auto) 9.9 H, Lymph # (Auto) 0.4 L, [place] # (Auto) 0.2, Eos # (Auto) 0.0, Baso # (Auto) 0.0, Total Counted 100, Neutrophils % (Manual) 94 H, Lymphocytes % (Manual) 2 L, Atypical Lymphs % 2.0, Monocytes % (Manual) 2, Platelet Estimate Normal, RBC Morphology Normal 03/13/18 05:49: Sodium 141, Potassium 3.8, Chloride 106, Carbon Dioxide 24, Anion Gap 14.8, BUN 15, Creatinine 0.99, Estimated Creat Clear 128, Estimated GFR 62, Est GFR ( Amer) 76, Glucose 136 H, Calcium 8.6 D, Magnesium 1.8, Total Bilirubin 0.6, AST 39 H, ALT 104 H, Alkaline Phosphatase 104, Total Protein 7.0, Albumin 3.4, Globulin 3.6 H, Albumin/Globulin Ratio 0.9 L <Anna Jacob - 03/13/18 08:24> I & O for Last 24 hours: Intake & Output 03/11/18 03/12/18 03/13/18 03/14/18 11:59 11:59 11:59 11:59 Intake Total 790 / 790 Balance 790 / 790 Weight 234 lb 3.188 oz <Amira Berkowitz - 03/13/18 12:39> Intake & Output 03/10/18 03/11/18 03/12/18 03/13/18 11:59 11:59 11:59 11:59 Intake Total 790 / 790 Balance 790 / 790 Weight 234 lb 3.188 oz <Anna Jacob 03/13/18 08:16> Microbiology Reports for the Last 24 Hours: Microbiology 03/13/18 02:16 Sputum - Expectorated Sputum Gram Stain - Final <Amira Berkowitz - 03/13/18 12:39> Microbiology 03/13/18 02:16 Sputum - Expectorated Sputum Gram Stain - Final <Anna Jacob 03/13/18 08:16> - Constitutional no acute distress <MinavilmaAnna 03/13/18 08:24> - *Routine HEENT Exam Head: Present: normocephalic <NidiaAnna 03/13/18 08:24> Eye: Present: EOMI, PERRL <NidiaAnna 03/13/18 08:24> ENT: Present: mucous membranes moist <MinavilmaAnna 03/13/18 08:24> - *Routine Neck Exam Present: supple. Absent: lymphadenopathy <MinavilmaAnna 03/13/18 08:24> - *Routine Respiratory Exam Present: decreased breath sounds. Absent: wheezes <NidiaAnna 03/13/18 08:24> - *Routine Cardiovascular Exam Present: RRR <NidiaAnna - 03/13/18 08:24> - *Routine Abdominal Exam Present: soft, normoactive bowel sounds. Absent: tenderness <NidiaAnna 03/13/18 08:24> - *Routine Extremities Exam Absent: cyanosis, clubbing, edema <NidiaAnna 03/13/18 08:24> - *Routine Skin Exam Present: warm. Absent: rash <NidiaAnna 03/13/18 08:24> - *Routine Neurological Exam Present: alert, oriented X3 <NidiaAnna 03/13/18 08:24> H&P: Result - Impressions CXR - Diffuse bilateral pneumonia slightly improved on the right but worse on the left. <Anna Jacob - 03/13/18 08:24> Assessment and Plan (1) HCAP (healthcare-associated pneumonia) Current visit: Yes Status: Acute Category: Medical Code(s): J18.9 - Pneumo tamir, unspecified organism (2) Hypoxia Current visit: No Status: Acute Category: Medical Code(s): R09.02 - Hypoxemia <Anna Jacob - 03/13/18 08:18> (1) HCAP (healthcare-associated pneumonia) Current visit: Yes Status: Acute Category: Medical Code(s): J18.9 - Pneumonia, unspecified organism (2) Hypoxia Current visit: No Status: Acute Category: Medical Code(s): R09.02 - Hypoxemia <ShoAmira - 03/13/18 12:39> - Assessment and plan all Dx Assessment and Plan for all problems:: Patient discharged as she was on RA with 94% all morning. I had given her symbicort sample, levaquin and prednisone for her B/L pneumonia. Will f/u in office in a week. Patient is in the process of getting passport insurance. <Amira Berkowitz - 03/13/18 12:39> Patient was started on antibiotics, oxygen and neb treatments. At this time she is feeling slightly better. She is still on 2 L of oxygen at this time. Will need to wean oxygen prior to discharge. <Anna Jacob - 03/13/18 08:24>
--- NOTE | 2018-03-14 15:56 | Discharge Summary ---
General - General Admission date:: 03/13/18 Discharge date: 03/13/18 HPI HPI: Ms. Fonseca is a 37-year-old female who was just recently discharged from [facility] after an admission for pneumonia. She did follow-up in the office on 03/06/[address] Berkowitz and had finished her antibiotics. She did have a cough and some shortness of breath at that time that had recently developed. Her CBC showed a white blood cell count of 12.7. She was felt to have allergies and was started on Flonase, Mucinex, and Zyrtec. The patient states last night she was at work and had to answer 3 call bells. By the time she got back to her desk, she was extremely short of air and wheezing, therefore her boss brought her to the emergency room to be evaluated. Her oxygen was in the 80s and she was found to have bilateral pneumonia on chest x-ray. She was admitted for further evaluation and treatment. Of note: Her last sputum culture came back normal and her chest x-ray at that time showed a worse pneumonia on the right rather than the left. Her chest x- ray from this admission shows a worsening pneumonia on the left and improvement on the right. Hospital Course Hospital Course: The patient was started on antibiotics, oxygen and neb treatments. She felt better and was able to be weaned off of her oxygen. She was stable to be discharged as her RA sats were 94%. She was given a symbicort sample, levaquin and prednisone for her B/L pneumonia. She will f/u in the office in a week. She is in the process of getting passport insurance. Objective Vital signs: Temp Pulse Resp BP Pulse Ox 97.3 F L 106 H 20 124/86 94 L 03/13/18 11:34 03/13/18 11:40 03/13/18 11:34 03/13/18 11:34 03/13/18 11:40 Narrative: - Constitutional no acute distress - *Routine HEENT Exam Head: Present: normocephalic Eye: Present: EOMI, PERRL ENT: Present: mucous membranes moist - *Routine Neck Exam Present: supple. Absent: lymphadenopathy - *Routine Respiratory Exam Present: decreased breath sounds. Absent: wheezes - *Routine Cardiovascular Exam Present: RRR - *Routine Abdominal Exam Present: soft, normoactive bowel sounds. Absent: tenderness - *Routine Extremities Exam Absent: cyanosis, clubbing, edema - *Routine Skin Exam Present: warm. Absent: rash - *Routine Neurological Exam Present: alert, oriented X3 Results Labs on day of discharge: Preliminary micro results at discharge 03/13/18 02:16 Sputum Culture - Preliminary Sputum - Expectorated Sputum DS: Diagnosis - Discharge Diagnosis (1) HCAP (healthcare-associated pneumonia) Status: Acute (2) Hypoxia Status: Acute Discharge Plan - Patient Discharge Instructions ACTIVITY: Continue current activity DIET: continue same diet Patient Instructions: Pneumonia-Adult, DI for Pneumonia -- Adult - Follow up Plan Follow up with: Amira Berkowitz MD [Staff Physician] - 1 week Disposition: Home, Self-Care Prescriptions/Medication Reconciliation: New levoFLOXacin [Levaquin 500mg tab] 500 mg PO DAILY 7 Days #7 tab predniSONE [Deltasone 20mg tablet] 40 mg PO DAILY 5 Days #10 tab Discontinued Albuterol Sulfate [Albuterol HFA Inhaler] 1 puff INHALATION Q4HP PRN PRN Reason: Shortness Of Breath
== END 2018-03-13 13:00 | disposition home or self-care (01) ==
LOC: ER 23:24 → 2ND 23:24 → OBSVTOIN 03-13 02:34 → 2ND 03-13 02:35
PROVIDERS: ADMIT Family Medicine; ATTEND Emergency Medicine

== ENCOUNTER 2018-03-26 05:10 | Inpatient (IN) ==
--- NOTE | 2018-03-26 05:20 | Emergency Department Note ---
ED Disposition Clinical Impression: Hospital-acquired pneumonia, Acute respiratory failure with hypoxia, Hypoxia, Left shift, Elevated brain natriuretic peptide (BNP) level, Hypoproteinemia, Hypoalbuminemia, Bilateral pleural effusion, Bilateral lower extremity edema Leukocytosis Qualifiers: Leukocytosis type: unspecified Qualified Code(s): D72.829 - Elevated white blood cell count, unspecified Disposition: Admitted As Inpatient Condition on Discharge: Serious Referrals: Amira Berkowitz MD [Primary Care Provider] - Time of Disposition: :25 - Critical Care Critical Care Time: No Attestation: On , the high probability of a clinically significant, sudden or life threatening deterioration of the following system(s) required my full and direct attention, intervention and personal management. The time I documented below is in addition to time spent performing reported procedures but includes the following listed in this critical care notation. Medical Decision Making - Nikita Inquiry Pt receiving controlled substance: No Vital Signs: 03/26/18 05:26 03/26/18 05:41 03/26/18 05:50 Temperature 98.1 F Temperature Source Oral Pulse Rate 113 H Pulse Rate [Right] 125 H 113 H Respiratory Rate 26 H 26 H Blood Pressure [Right Arm] 160/105 H 164/102 H Blood Pressure Mean [Right Arm] 123 122 Blood Pressure Source [Right Arm] Automatic Cuff Blood Pressure Position [Right Arm] Sitting 02 Sat by Pulse Oximetry 77 L 86 L 90 L Oxygen Delivery Method Room Air Nasal Cannula Nasal Cannula Oxygen Flow Rate (LPM) 2 2 03/26/18 06:30 03/26/18 06:32 03/26/18 06:39 Temperature Temperature Source Pulse Rate Pulse Rate [Right] 114 H 112 H Respiratory Rate 24 26 H Blood Pressure [Right Arm] 142/100 H 148/100 H Blood Pressure Mean [Right Arm] 114 116 Blood Pressure Source [Right Arm] Automatic Cuff Blood Pressure Position [Right Arm] Sitting 02 Sat by Pulse Oximetry 83 L 83 L 88 L Oxygen Delivery Method Nasal Cannula Nasal Cannula Nasal Cannula Oxygen Flow Rate (LPM) 2 2 4 03/26/18 06:48 03/26/18 07:07 03/26/18 07:30 Temperature Temperature Source Pulse Rate Pulse Rate [Right] 107 H 114 H 116 H Respiratory Rate 24 24 26 H Blood Pressure [Right Arm] 134/91 H 125/64 136/98 H Blood Pressure Mean [Right Arm] 105 84 110 Blood Pressure Source [Right Arm] Automatic Cuff Blood Pressure Position [Right Arm] Supine 02 Sat by Pulse Oximetry 90 L 90 L 86 L Oxygen Delivery Method Nasal Cannula Nasal Cannula Venturi Mask Oxygen Flow Rate (LPM) 4 4 - Lab Data Lab results reviewed: Yes: I reviewed the patient's lab results. Lab Results 03/26/18 05:20: WBC 19.9 H, RBC 4.95, Hgb 15.3, Hct 47.8 H, MCV 96.4, MCH 30.9, MCHC 32.1, RDW 15.1, Plt Count 443 H, MPV 8.2, Neut % (Auto) 89.5 H, Lymph % (Auto) 6.8 L, [place] % (Auto) 3.1, Eos % (Auto) 0.4, Baso % (Auto) 0.3, Neut # (Auto) 17.8 H, Lymph # (Auto) 1.4, [place] # (Auto) 0.6, Eos # (Auto) 0.1, Baso # (Auto) 0.1, Total Counted 100, Neutrophils % (Manual) 89 H, Band Neutrophils % 2.0, Lymphocytes % (Manual) 5 L, Monocytes % (Manual) 4, Platelet Estimate Slight increase 03/26/18 05:20: PT 9.9, INR 0.96, D-Dimer 267 03/26/18 05:20: Sodium 141, Potassium 4.7, Chloride 106, Carbon Dioxide 19 L, Anion Gap 20.7 H, BUN 19 H, Creatinine 1.31 H, Estimated Creat Clear 99, Estimated GFR 45 L, Est GFR ( Amer) 55 L, Glucose 119 H, Calcium 8.8, Total Bilirubin 0.9, AST 35, ALT 91 H, Alkaline Phosphatase 109, Total Creatine Kinase 87, CK-MB (CK-2) 2.0, CK-MB (CK-2) Rel Index 2.3, Troponin I 0.02, Total Protein 6.3 L, Albumin 3.3 L, Globulin 3.0, Albumin/Globulin Ratio 1.1 03/26/18 05:20: B-Natriuretic Peptide 846 H 03/26/18 05:20: Magnesium 2.4 H 03/26/18 05:20: Lactate 2.5 H 03/26/18 05:27: Specimen Source Right radial, O2 % 28% nc, ABG pH 7.48 H, ABG pCO2 23.2 L, ABG pO2 55.0 L, ABG HCO3 16.9 L, ABG Total CO2 17.6 L, ABG O2 Saturation 89 L, ABG Base Excess -6.6 L, Mac Test Acceptable Result diagrams: 03/26/18 05:20 03/26/18 05:20 Orders (Tests/Meds): ED MEDICATIONS Generic Name Dose Route Start Last Admin Trade Name Hong PRN Reason Stop Dose Admin Levofloxacin/Dextrose 750 mg in 150 mls @ 100 mls/hr 03/26/18 06:00 03/26/18 07:06 Levofloxacin 750mg/150ml Premix IV 04/09/18 05:59 100 mls/hr Q24H RICHARD Administration Protocol Sodium Chloride 1,000 mls @ 75 mls/hr 03/26/18 06:15 03/26/18 06:37 Sod Chlor 0.9% 1000ml Bag IV 04/25/18 06:14 75 mls/hr .[id number] RICHARD Administration Vancomycin HCl 2,000 mg/ 250 mls @ 125 mls/hr 03/26/18 06:11 03/26/18 06:37 Sodium Chloride IV 03/26/18 08:10 125 mls/hr ONCE ONE Administration Miscellaneous 1 each 03/26/18 06:00 03/26/18 06:10 Vancomycin Consult Request * 04/25/18 05:59 1 each CONSULT PHARMACY RICHARD Administration Sodium Chloride 3 ml 03/26/18 06:02 Sodium Chloride 3% 15ml Neb IH 04/25/18 06:01 ONCE PRN INDUCE SPUTUM COLLECTION Discontinued Medications Generic Name Dose Route Start Last Admin Trade Name Hong PRN Reason Stop Dose Admin Albuterol/Ipratropium 3 ml 03/26/18 05:27 03/26/18 05:50 Duoneb 3ml Neb IH 03/26/18 05:28 3 ml ONCE ONE Administration Piperacillin Sod/Tazobactam 100 mls @ 200 mls/hr 03/26/18 05:59 03/26/18 06:37 Sod 3.375 gm/ Sodium Chloride IV 03/26/18 06:00 200 mls/hr ONCE ONE Administration Protocol Iopamidol 70 ml 03/26/18 06:30 03/26/18 06:34 [id number]; 75ml Vial IV 03/26/18 06:31 70 ml ONCE ONE Administration Protocol Sodium Chloride 10 ml 03/26/18 06:30 03/26/18 06:34 Rad-Saline Flush 10ml Syringe IV 03/26/18 06:31 10 ml ONCE ONE Administration Sodium Chloride 40 ml 03/26/18 06:30 03/26/18 06:34 Rad-Ns 50ml Vial IV 03/26/18 06:31 40 ml ONCE ONE Administration ORDERS Category Date Time Status Legionella pneumophila Abs. Stat Lab 03/26/18 07:12 Ordered Mycoplasma Pneumo IGM (Rapid) Stat Lab 03/26/18 07:10 Ordered Pneumococcal Ab (7 Serotype) Stat Lab 03/26/18 07:11 Ordered Respiratory Virus Panel, PCR [Upper Respiratory Panel, Lab 03/26/18 06:33 Received PCR] Stat Urinalysis-Acute [Urinalysis and Microscopic] Stat Lab 03/26/18 05:34 Ordered Blood Culture Stat Micro 03/26/18 05:20 Ordered Sputum Culture & Gram Stain Stat Micro 03/26/18 06:02 Ordered - Radiology Data #1 Image(s): Chest Image Reviewed: Yes I reviewed the patient's radiology image (+) diffuse bilateral pneumonia. 07:[address] [facility] [address] [place] [address] XRay Report Signed Patient: Shelia Fonseca MR#: [id number] : 1980 Acct:[id number] Age/Sex: 37 / F ADM Date: 03/26/18 Loc: ER Attending Dr: Ordering Physician: Hong Castaneda III, DO Date of Service: 03/26/18 Procedure(s): XR chest portable Accession Number(s): [id number] cc: Mac Mccollum MD; Amira Berkowitz MD~ XR chest portable HISTORY: ITS.REASON: Dyspnea ORDERING PHYSICIAN: Hong Castaneda III, DO PATIENT AGE: 37 years COMPARISON: 03/13/2018 FINDINGS: There are low lung volumes. There is cardiomegaly. There is diffuse bilateral pneumonia. This is more severe in the left upper lobe and slightly worse in the right upper lobe when compared to the previous exam. Bilateral lower lobe pneumonia also noted. IMPRESSION: Cardiomegaly with diffuse bilateral pneumonia which is worse in the upper lobes Dictated By: Mac Mccollum MD Signed By: <Electronically signed by Mac Mccollum MD in OV> 03/26/1857 DD/ - CT Data CT Scan: Chest Time Received: 07:[address] Reviewed: Yes: I have viewed the radiologist's interpretation Findings Narrative: 07:[address] [place] [address] CT Scan Report Signed Patient: Shelia Fonseca MR#: [id number] : 1980 Acct:[id number] Age/Sex: 37 / F ADM Date: 03/26/18 Loc: ER Attending Dr: Ordering Physician: Hong Castaneda III, DO Date of Service: 03/26/18 Procedure(s): CT angio chest Accession Number(s): [id number] cc: Mac Mccollum MD; Amira Berkowitz MD~ CT angio chest HISTORY: Shortness of breath, recent pneumonia ITS.REASON: Dyspnea ORDERING PHYSICIAN: Hong Castaneda III, DO PATIENT AGE: 37 years COMPARISON: None TECHNIQUE: Axial images obtained following the administration of 75 mL of Isovue 370 . Sagittal, and coronal reformatted images are also generated and reviewed. All CT scans at the facility use one or more dose reduction, viz: automated exposure control, ma/kV adjustment per patient size (including targeted exams where dose is matched to indication, i.e. head), or iterative reconstruction technique. FINDINGS: There is respiratory motion artifact which does decrease fine detail. There is diffuse bilateral pneumonia which also causes some decrease in filling of the peripheral pulmonary arteries. No central or segmental pulmonary embolus is evident. The subsegmental pulmonary arteries are not well delineated. No evidence of aortic aneurysm.. There is mild cardiomegaly. No evidence of pericardial effusion There is severe consolidation throughout both lungs with some mild sparing in the left lung base. There are small bilateral pleural effusions. The consolidation is most dense in the upper lobes left greater than right and is consistent with diffuse bilateral pneumonia. Upper abdominal images are unremarkable. No acute bony anomalies. IMPRESSION: 1. No evidence of pulmonary embolus. 2. Diffuse bilateral airspace disease as described above in both upper and lower lobes most dense in left upper lobe consistent with diffuse bilateral pneumonia with small bilateral effusions Dictated By: Mac Mccollum MD Signed By: <Electronically signed by Mac Mccollum MD in OV> 03/26/18 0655 DD/ 0650 - ECG Data Tracing #1 I reviewed this ECG and interpreted as documented below: (EKG at 05:20 shows sinus tachycardia with occasional PVC's, anterior infarct (age undetermined), 120 BPM.) Medical Decision Narrative: Pt evaluated. Sepsis and pneumonia workup ordered. Old records reviewed. Vancomycin 2 gm IVPB, Zosyn 3.375 gm IVPB and Levaquin 750 mg IVPB ordered. I intend to discuss case with PCP and admit pt to step down. 07:15 Bilateral LE venous US: negative per tech. Awaiting radiologist report. All labs, EKG, CXR report, CT PE chest report reviewed. Awaiting call back from doctor director of early childhood education for patient to get her admitted. 07:[address] Berkowitz. She asked that pt be placed on CPAP, and she confirmed she will write orders on this pt. Pt is aware of the results of work up, diagnosis and care plan. She is in agreement and all questions answered. General Adult HPI - General Stated complaint: SOA Time Seen by Provider: 03/26/18 05:19 Mode of Arrival: Family Vehicle - History of Present Illness HPI narrative: Pt is here in the ER via POV from home c/o SOB. Pt is currently being treated for pneumonia. Pt admitted here on 02-21-18 and again on 03-13-18. Pt was on Levaquin PO in the past and is on Augmentin PO now. Pt states that she has had dyspnea for a month. Her SOB has been worse at night when she gets up to use the bathroom like this morning. Pt denies chest pain. Pt here with her dad. Pt does not smoke. 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 She is also c/o of persistent bilateral LE edema with LLE > RLE. - Related Data Home Medications Medication Instructions Recorded Confirmed Amoxicillin/Potassium Clav 1 tab PO Q12H 03/26/18 03/26/18 [Augmentin 875-125 Tablet] Budesonide/Formoterol Fumarate 10.2 gm IH NEEDED PRN 03/26/18 03/26/18 [Symbicort 160-4.5 Mcg Inhaler] Cetirizine HCl [Zyrtec] 10 mg PO DAILY 03/26/18 03/26/18 Allergies Allergy/AdvReac Type Severity Reaction Status Date / Time No Known Allergies Allergy Verified 03/13/18 02:51 [facility] History I have reviewed the patient's past medical history: Yes Medical History: Reports:: Hypertension Denies:: Cancer, Diabetes Mellitus Type 1, Diabetes Mellitus Type 2, MRSA Other Medical History: Reports: Sinus Problems Other Surgeries: Yes: No Previous Surgery Amputation: No - Social History Smoking Status: Never smoker Alcohol Intake: never Occupational Status: employed Housing: house Household Members: spouse, children Family Hx:: Asthma, Cancer, Diabetes, Heart Attack, Hypertension ROS Obtained: Yes All systems reviewed & no additional complaints - Constitutional Constitutional: Reports system reviewed and no additional complaints, except as docu - Eyes Eyes: Reports system reviewed and no additional complaints, except as docu - ENT Ears, Nose, Mouth, and Throat: Reports system reviewed and no additional complaints, except as docu - Cardiovascular Cardiovascular: Reports system reviewed and no additional complaints, except as docu - Respiratory Respiratory: Yes as per HPI, Yes non-productive cough, Yes dyspnea, Yes dyspnea on exertion, No stridor, Yes wheezing (occasional) - Gastrointestinal Gastrointestingal: Reports: system reviewed and no additional complaints, except as docu - Genitourinary Female Genitourinary: Reports system reviewed and no additional complaints, except as docu - Musculoskeletal Musculoskeletal: Reports as per HPI, Reports other (Persistent bilateral LE swelling (L>R)) - Integumentary/Breasts Skin/Breast: Reports system reviewed and no additional complaints, except as docu - Neurologic Neurologic: Reports system reviewed and no additional complaints, except as docu - Endocrine Endocrine: Reports system reviewed and no additional complaints, except as docu - Hematologic/Lymphatic Henatologic/Lymphatic: Reports system reviewed and no additional complaints, except as docu - Allergic/Immunologic Allergic/Immunologic: Reports system reviewed and no additional complaints, except as docu Physical Exam - General General appearance: alert, in distress (mild to moderate), obese - Head Head exam: atraumatic, normocephalic, normal inspection - Eye Eye exam: Present: PERRL, EOMI - ENT ENT exam: Present: mucous membranes moist - Neck Neck exam: Present: trachea midline - Chest Chest inspection: Present: normal inspection - Respiratory Respiratory exam: Present: other (Equally diminished BS bilaterally.). Absent: wheezes, stridor - Cardiovascular Cardiovascular exam: Present: tachycardia. Absent: systolic murmur, rubs, gallop - Abdominal Exam Abdominal exam: Present: soft, normal bowel sounds. Absent: tenderness, guarding, rebound, rigidity - Extremities Exam Extremities exam: Present: full ROM, normal capillary refill, other (2+ pitting edema to bilateral legs/ankles (L>R)). Absent: tenderness, calf tenderness - Back Exam Back exam: Present: normal inspection - Neurological Exam Neurological exam: Present: alert, oriented X3, CN II-XII intact - Psychiatric Psychiatric exam: Present: normal affect. Absent: anxious - Skin Skin exam: Present: warm, dry, intact, normal color. Absent: cyanosis, diaphoresis, erythema, mottled
[2018-03-26 05:53] LABS: Basophils # 0.1 K/mm3 (0-0.2); Basophils % 0.3 % (0.1-2.0); Eosinophils # 0.1 K/mm3 (0.0-0.4); Eosinophils % 0.4 % (0.1-12.0); Hematocrit 47.8 % (37.0-47.0); Hemoglobin 15.3 g/dL (12.2-16.2); Lymphocytes # 1.4 K/mm3 (0.7-4.5); Lymphocytes % 6.8 K/mm3 (10-50); Mean Corpuscular HGB Conc 32.1 g/dL (31.8-35.4); Mean Corpuscular Hemoglobin 30.9 pg (27.0-31.2); Mean Corpuscular Volume 96.4 fl (81-99); Mean Platelet Volume 8.2 fl (7.4-10.4); Monocytes # 0.6 K/mm3 (0.1-1.0); Monocytes % 3.1 % (1.7-9.3); Neutrophils # 17.8 K/mm3 (1.8-7.8); Neutrophils % 89.5 % (37.0-80.0); Platelet Count 443 K/mm3 (142-424); Red Blood Count 4.95 M/mm3 (4.20-5.40); Red Cell Distribution Width 15.1 % (11.5-17.5); White Blood Count 19.9 K/mm3 (4.8-10.8)
[2018-03-26 05:53] LABS: ABG Base Excess -6.6 mmol/L (-2.4-2.3); ABG HCO3 16.9 mmhg (22.0-26.0); ABG Oxygen Saturation 89 % (90-100); ABG PCO2 23.2 mmhg (35.0-45.0); ABG PH 7.48 mmol/L (7.35-7.45); ABG TCO2 17.6 mmhg (23-27)
[2018-03-26 05:57] LABS: Allen's Test Acceptable
[2018-03-26 05:59] LABS: INR 0.96 (0.9-1.1); Prothrombin Time 9.9 seconds (9.4-11.8)
[2018-03-26 06:20] LABS: Albumin Level 3.3 gm/dL (3.4-5.0); Albumin/Globulin Ratio 1.1 (1.1-1.8); Anion Gap 20.7 mEq/L (5-15); Bilirubin,Total 0.9 mg/dL (0.2-1.0); Calcium 8.8 mg/dL (8.5-10.1); Potassium 4.7 mmoL/L (3.5-5.1); Total Protein,Serum 6.3 gm/dL (6.4-8.2)
[2018-03-26 06:49] LABS: Coronavirus 229E Not Detected (NotDetected); Coronavirus NL63 Not Detected (NotDetected); Coronavirus OC43 Not Detected (NotDetected); Coronovirus HKU1,PCR Not Detected (NotDetected)
[2018-03-26 07:04] LABS: Lymphocytes % 5 % (10-50); Monocytes % 4 % (2-9); Neutrophils % 89 % (42-76); Total Cells Counted 100
--- NOTE | 2018-03-26 07:27 | Non-Invasive Vascular Report ---
"Venous Exam Indications: 786.05 Shortness of breath. 729.81 Swelling of limb. IMPRESSIONS 1. There is no evidence of significant Reflux. 2. No evidence of deep or superficial vein thrombosis involving the right lower extremity 3. No evidence of deep or superficial vein thrombosis involving the left lower extremity Technically difficult exam secondary to patient unable to lay flat because of SOA Complete lower extremity venous duplex evaluation. Doppler flow study including spectral analysis, color and flores scale imaging. Location: Bedside. Patient status: Emergency department. Tables: Venous flow and imaging: + +-------+ + |Location |Overall|Flow properties | + +-------+ + |Right common femoral |Patent |Normal phasicity; spontaneous; | | | |normal augmentation; compressible| + +-------+ + |Right saphenofemoral junction|Patent |Compressible | + +-------+ + |Right profunda femoral |Patent |Compressible | + +-------+ + |Right femoral |Patent |Normal phasicity; spontaneous; | | | |normal augmentation; | | | |compressible; no reflux | + +-------+ + |Right greater saphenous |Patent |Normal phasicity; spontaneous; | | | |normal augmentation; compressible| + +-------+ + |Right popliteal |Patent |Normal phasicity; spontaneous; | | | |normal augmentation; compressible| + +-------+ + |Right posterior tibial |Patent |Compressible | + +-------+ + |Right peroneal |Patent |Compressible | + +-------+ + |Right gastrocnemius |Patent |Compressible | + +-------+ + |Right soleal |Patent |Compressible | + +-------+ + |Left common femoral |Patent |Normal phasicity; spontaneous; | | | |normal augmentation; compressible| + +-------+ + |Left saphenofemoral junction |Patent |Compressible | + +-------+ + |Left profunda femoral |Patent |Compressible | + +-------+ + |Left femoral |Patent |Normal phasicity; spontaneous; | | | |normal augmentation; compressible| + +-------+ + |Left greater saphenous |Patent |Normal phasicity; spontaneous; | | | |normal augmentation; compressible| + +-------+ + |Left popliteal |Patent |Normal phasicity; spontaneous; | | | |normal augmentation; compressible| + +-------+ + |Left posterior tibial |Patent |Compressible | + +-------+ + |Left peroneal |Patent |Compressible | + +-------+ + |Left gastrocnemius |Patent |Compressible | + +-------+ + |Left soleal |Patent |Compressible | + +-------+ + (Report amended ) Electronically signed by: Mac Mccollum [id number]"
--- NOTE | 2018-03-26 08:47 | History & Physical Report ---
*Admission Date: 03/26/18 <Anna Jacob 03/26/18 09:01> *Chief complaint: SOA <Anna Jacob 03/26/18 09:01> *History of present illness: Ms. Fonseca is a 37-year-old female who was just recently discharged from [facility] after a second admission for pneumonia. She states she went back to work on Friday and had an episode of SOA. Her mother gave her one of her albuterol nebs and this helped. This am at 4:30 she got up to go to the bathroom and became SOA. She took another neb but this did not help so she came to the ER. She states her oxygen was in the 70's by the time she got there. A CXR showed bilateral pneumonia and cardiomegaly. A CTA showed bilateral pneumonia and pleural effusions. She has had LE edema for the past month as well. She will be admitted. <Anna Jacob 03/26/18 09:01> [facility] History Medical History: Reports:: Hypertension Denies:: Cancer, Diabetes Mellitus Type 1, Diabetes Mellitus Type 2, MRSA <Anna Jacob 03/26/18 08:47> Other Medical History: Reports: Sinus Problems <Anna Jacob 03/26/18 08:47> Other Surgeries: Yes: No Previous Surgery <Anna Jacob 03/26/18 08:47> Amputation: No <Anna Jacob 03/26/18 08:47> - *Social History Smoking Status: Never smoker <Anna Jacob 03/26/18 08:47> Alcohol Intake: never <Anna Jacob 03/26/18 08:47> Occupational Status: employed <Anna Jacob 03/26/18 08:47> Housing: house <Anna Jacob 03/26/18 08:47> Household Members: spouse, children <Anna Jacob 03/26/18 08:47> - Psychiatric History Expresses thoughts of harming self/others: None <Anna Jacob 03/26/18 08:47> Suicide Plan Description: No Plan <Anna Jacob 03/26/18 08:47> *Family Hx:: Asthma, Cancer, Diabetes, Heart Attack, Hypertension <Anna Jacob 03/26/18 08:47> Review of Systems - Constitutional Denies body ache(s), Denies weakness <Anna Jacob 03/26/18 09:01> - Eyes Denies blurry vision, Denies double vision <Anna Jacob 03/26/18 09:01> - ENT Denies nasal congestion, Denies sore throat <Anna Jacob 03/26/18 09:01> - *Cardiovascular Reports shortness of breath with activity, Reports leg swelling, Denies chest pain <Anna Jacob 03/26/18 09:01> - *Respiratory Reports cough, Reports shortness of breath with activity <Anna Jacob 03/26/18 09:01> - *Gastrointestinal Denies loose stools, Denies nausea, Denies vomiting <Anna Jacob 03/26/18 09:01> - *Genitourinary Denies difficulty urinating, Denies painful urination <Anna Jacob 03/26/18 09:01> - *Musculoskeletal Denies joint pain, Denies muscle cramps <Anna Jacob 03/26/18 09:01> - *Neurologic Denies headache(s), Denies dizziness <Anna Jacob 03/26/18 09:01> Meds Home Medications Medication Instructions Recorded Confirmed Type Amoxicillin/Potassium Clav 1 tab PO Q12H 03/26/18 03/26/18 History [Augmentin 875-125 Tablet] [facility] 03/26/18 11:59> Allergies Allergy/AdvReac Type Severity Reaction Status Date / Time No Known Allergies Allergy Verified 03/13/18 02:51 <[facility] 03/26/18 11:59> Exam Vital signs and Labs for Last 24 Hours: Temp Pulse Resp BP Pulse Ox 97.6 F 124 H 45 H 157/103 H 96 03/26/18 11:01 03/26/18 11:01 03/26/18 11:01 03/26/18 11:01 03/26/18 11:01 Laboratory Results - last 24 hr 03/26/18 05:20: WBC 19.9 H, RBC 4.95, Hgb 15.3, Hct 47.8 H, MCV 96.4, MCH 30.9, MCHC 32.1, RDW 15.1, Plt Count 443 H, MPV 8.2, Neut % (Auto) 89.5 H, Lymph % (Auto) 6.8 L, [place] % (Auto) 3.1, Eos % (Auto) 0.4, Baso % (Auto) 0.3, Neut # (Auto) 17.8 H, Lymph # (Auto) 1.4, [place] # (Auto) 0.6, Eos # (Auto) 0.1, Baso # (Auto) 0.1, Total Counted 100, Neutrophils % (Manual) 89 H, Band Neutrophils % 2.0, Lymphocytes % (Manual) 5 L, Monocytes % (Manual) 4, Platelet Estimate Slight increase 03/26/18 05:20: PT 9.9, INR 0.96, D-Dimer 267 03/26/18 05:20: Sodium 141, Potassium 4.7, Chloride 106, Carbon Dioxide 19 L, Anion Gap 20.7 H, BUN 19 H, Creatinine 1.31 H, Estimated Creat Clear 99, Estimated GFR 45 L, Est GFR ( Amer) 55 L, Glucose 119 H, Calcium 8.8, Total Bilirubin 0.9, AST 35, ALT 91 H, Alkaline Phosphatase 109, Total Creatine Kinase 87, CK-MB (CK-2) 2.0, CK-MB (CK-2) Rel Index 2.3, Troponin I 0.02, Total Protein 6.3 L, Albumin 3.3 L, Globulin 3.0, Albumin/Globulin Ratio 1.1 03/26/18 05:20: B-Natriuretic Peptide 846 H 03/26/18 05:20: Magnesium 2.4 H 03/26/18 05:20: Lactate 2.5 H 03/26/18 05:20: Mycoplasma pneumon IgM Non-reactive 03/26/18 05:27: Specimen Source Right radial, O2 % 28% nc, ABG pH 7.48 H, ABG pCO2 23.2 L, ABG pO2 55.0 L, ABG HCO3 16.9 L, ABG Total CO2 17.6 L, ABG O2 Saturation 89 L, ABG Base Excess -6.6 L, Mac Test Acceptable 03/26/18 06:33: Chlamy pneumoniae PCR Not detected, Adenovirus (PCR) Not detected, B.parapertussis DNA PCR Not detected, Coronavirus OC43 (PCR) Not detected, Coronavirus HKU1 (PCR) Not detected, Coronavirus 229E (PCR) Not detected, Coronavirus NL63 (PCR) Not detected, Human Metapneumovir PCR Not detected, Influenza A (H1) PCR Not detected, Influ A (H1N1/09) PCR Not detected, Influenza A (H3) PCR Not detected, Influenza Type A (PCR) Not detected, Influenza Type B (PCR) Not detected, M. pneumoniae (PCR) Not detected, Parainfluenza 1 (PCR) Not detected, Parainfluenza 2 (PCR) Not detected, Parainfluenza 3 (PCR) Not detected, Parainfluenza 4 (PCR) Not detected, RSV (PCR) Not detected, Entero/Rhino (PCR) Not detected 03/26/18 09:50: Lactate 1.8 <Sound,Amira - 03/26/18 11:59> Temp Pulse Resp BP Pulse Ox 98.9 F 115 H 24 132/95 H 86 L 03/26/18 08:37 03/26/18 08:37 03/26/18 08:37 03/26/18 08:37 03/26/18 07:30 Laboratory Results - last 24 hr 03/26/18 05:20: WBC 19.9 H, RBC 4.95, Hgb 15.3, Hct 47.8 H, MCV 96.4, MCH 30.9, MCHC 32.1, RDW 15.1, Plt Count 443 H, MPV 8.2, Neut % (Auto) 89.5 H, Lymph % (Auto) 6.8 L, [place] % (Auto) 3.1, Eos % (Auto) 0.4, Baso % (Auto) 0.3, Neut # (Auto) 17.8 H, Lymph # (Auto) 1.4, [place] # (Auto) 0.6, Eos # (Auto) 0.1, Baso # (Auto) 0.1, Total Counted 100, Neutrophils % (Manual) 89 H, Band Neutrophils % 2.0, Lymphocytes % (Manual) 5 L, Monocytes % (Manual) 4, Platelet Estimate Slight increase 03/26/18 05:20: PT 9.9, INR 0.96, D-Dimer 267 03/26/18 05:20: Sodium 141, Potassium 4.7, Chloride 106, Carbon Dioxide 19 L, Anion Gap 20.7 H, BUN 19 H, Creatinine 1.31 H, Estimated Creat Clear 99, Estimated GFR 45 L, Est GFR ( Amer) 55 L, Glucose 119 H, Calcium 8.8, Total Bilirubin 0.9, AST 35, ALT 91 H, Alkaline Phosphatase 109, Total Creatine Kinase 87, CK-MB (CK-2) 2.0, CK-MB (CK-2) Rel Index 2.3, Troponin I 0.02, Total Protein 6.3 L, Albumin 3.3 L, Globulin 3.0, Albumin/Globulin Ratio 1.1 03/26/18 05:20: B-Natriuretic Peptide 846 H 03/26/18 05:20: Magnesium 2.4 H 03/26/18 05:20: Lactate 2.5 H 03/26/18 05:20: Mycoplasma pneumon IgM Non-reactive 03/26/18 05:27: Specimen Source Right radial, O2 % 28% nc, ABG pH 7.48 H, ABG pCO2 23.2 L, ABG pO2 55.0 L, ABG HCO3 16.9 L, ABG Total CO2 17.6 L, ABG O2 Saturation 89 L, ABG Base Excess -6.6 L, Mac Test Acceptable 03/26/18 06:33: Chlamy pneumoniae PCR Not detected, Adenovirus (PCR) Not detected, B.parapertussis DNA PCR Not detected, Coronavirus OC43 (PCR) Not detected, Coronavirus HKU1 (PCR) Not detected, Coronavirus 229E (PCR) Not detected, Coronavirus NL63 (PCR) Not detected, Human Metapneumovir PCR Not detected, Influenza A (H1) PCR Not detected, Influ A (H1N1/09) PCR Not detected, Influenza A (H3) PCR Not detected, Influenza Type A (PCR) Not detected, Influenza Type B (PCR) Not detected, M. pneumoniae (PCR) Not detected, Parainfluenza 1 (PCR) Not detected, Parainfluenza 2 (PCR) Not detected, Parainfluenza 3 (PCR) Not detected, Parainfluenza 4 (PCR) Not detected, RSV (PCR) Not detected, Entero/Rhino (PCR) Not detected <Anna Jacob - 03/26/18 09:01> I & O for Last 24 hours: Intake & Output 03/23/18 03/24/18 03/25/18 03/26/18 11:59 11:59 11:59 11:59 Output Total 300 / 300 Balance -300 / -300 Weight 245 lb 1 oz <Amira Berkowitz 03/26/18 11:59> Intake & Output 03/23/18 03/24/18 03/25/18 03/26/18 11:59 11:59 11:59 11:59 Weight 240 lb <Anna Jacob 03/26/18 08:47> Microbiology Reports for the Last 24 Hours: Microbiology 03/26/18 09:25 Sputum - Expectorated Sputum Gram Stain - Final <Amira Berkowitz 03/26/18 11:59> - Constitutional Comments: Dyspneic with talking <Anna Jacob 03/26/18 09:01> - *Routine HEENT Exam Head: Present: normocephalic <MinavilmaAnna 03/26/18 09:01> Eye: Present: EOMI, PERRL [facility]> ENT: Present: mucous membranes dry <Anna Jacob 03/26/18 09:01> - *Routine Neck Exam Present: supple. Absent: lymphadenopathy [facility]/18 09:01> - *Routine Respiratory Exam Present: rales (throughout), wheezes (throughout) <MinavilmaAnna 03/26/18 09:01> - *Routine Cardiovascular Exam Present: RRR [facility] 03/26/18 09:01> - *Routine Abdominal Exam Present: soft, normoactive bowel sounds. Absent: tenderness [facility] 03/26/18 09:01> - *Routine Extremities Exam Present: edema (bilateral LE's). Absent: cyanosis, clubbing <MinavilmaAnna 03/26/18 09:01> - *Routine Skin Exam Present: warm. Absent: rash <NidiaAnna 03/26/18 09:01> - *Routine Neurological Exam Present: alert, oriented X3 <NidiaAnna 03/26/18 09:01> H&P: Result - Impressions CXR - Cardiomegaly with diffuse bilateral pneumonia which is worse in the upper lobes CTA 1. No evidence of pulmonary embolus. 2. Diffuse bilateral airspace disease as described above in both upper and lower lobes most dense in left upper lobe consistent with diffuse bilateral pneumonia with small bilateral effusions LE doppler 1. There is no evidence of significant Reflux. 2. No evidence of deep or superficial vein thrombosis involving the right lower extremity 3. No evidence of deep or superficial vein thrombosis involving the left lower extremity Technically difficult exam secondary to patient unable to lay flat because of SOA <Anna Jacob - 03/26/18 09:01> Assessment and Plan (1) Acute respiratory failure with hypoxia Current visit: Yes Status: Acute Category: Medical Code(s): J96.01 - Acute respiratory failure with hypoxia (2) Bilateral lower extremity edema Current visit: Yes Status: Acute Category: Medical Code(s): R60.0 - Localized edema (3) Bilateral pleural effusion Current visit: Yes Status: Acute Category: Medical Code(s): J90 - Pleural effusion, not elsewhere classified <Anna Jacob - 03/26/18 08:47> (1) ARDS (adult respiratory distress syndrome) Current visit: Yes Status: Acute Category: Medical Code(s): J80 - Acute respiratory distress syndrome (2) Acute respiratory failure with hypoxia Current visit: Yes Status: Acute Category: Medical Code(s): J96.01 - Acute respiratory failure with hypoxia (3) Bilateral lower extremity edema Current visit: Yes Status: Acute Category: Medical Code(s): R60.0 - Localized edema (4) Bilateral pneumonia Current visit: Yes Status: Acute Qualifiers: Pneumonia type: due to unspecified organism Lung location: upper lobe of lung Qualified Code(s): J18.1 - Lobar pneumonia, unspecified organism Category: Medical Code(s): J18.9 - Pneumonia, unspecified organism <Amira Brekowitz 03/26/18 11:59> - Assessment and plan all Dx Assessment and Plan for all problems:: When I was rounding on the patient around 9 am, patient seem to be in extreme distress with oxygen saturation of 80% on 10 L of NC. Nurses reported to me that she had blood-tinged sputum and had refused BiPAP. After examination, patient was having diffuse bilateral crackles and rales. STAT CXR was ordered which showed ARDS, so she was started on lasix 80 mg IV BID. She was also started on BiPAP, her oxygen saturation improved to 96% and was tolerating at this time. Echo pending. Will get another ABG this PM. Continue IV abx, and nebs. <Amira Berkowitz - 03/26/18 11:59> Orders are being placed by the ER. Patient will be continued on oxygen, abx, and nebs. Will get an echo today and will likely need some lasix. Will discuss with Dr. Berkowitz. <Anna Jacob - 03/26/18 09:01>
--- NOTE | 2018-03-26 10:32 | Progress Note ---
Internal Medicine - PN: Subj *Date: 03/26/18 *Time: 10:31 Exam Vital signs and Labs for Last 24 Hours: Temp Pulse Resp BP Pulse Ox 98.1 F 112 H 30 H 145/90 H 96 03/26/18 09:10 03/26/18 10:02 03/26/18 09:10 03/26/18 09:10 03/26/18 10:02 Laboratory Results - last 24 hr 03/26/18 05:20: WBC 19.9 H, RBC 4.95, Hgb 15.3, Hct 47.8 H, MCV 96.4, MCH 30.9, MCHC 32.1, RDW 15.1, Plt Count 443 H, MPV 8.2, Neut % (Auto) 89.5 H, Lymph % (Auto) 6.8 L, [place] % (Auto) 3.1, Eos % (Auto) 0.4, Baso % (Auto) 0.3, Neut # (Auto) 17.8 H, Lymph # (Auto) 1.4, [place] # (Auto) 0.6, Eos # (Auto) 0.1, Baso # (Auto) 0.1, Total Counted 100, Neutrophils % (Manual) 89 H, Band Neutrophils % 2.0, Lymphocytes % (Manual) 5 L, Monocytes % (Manual) 4, Platelet Estimate Slight increase 03/26/18 05:20: PT 9.9, INR 0.96, D-Dimer 267 03/26/18 05:20: Sodium 141, Potassium 4.7, Chloride 106, Carbon Dioxide 19 L, Anion Gap 20.7 H, BUN 19 H, Creatinine 1.31 H, Estimated Creat Clear 99, Estimated GFR 45 L, Est GFR ( Amer) 55 L, Glucose 119 H, Calcium 8.8, Total Bilirubin 0.9, AST 35, ALT 91 H, Alkaline Phosphatase 109, Total Creatine Kinase 87, CK-MB (CK-2) 2.0, CK-MB (CK-2) Rel Index 2.3, Troponin I 0.02, Total Protein 6.3 L, Albumin 3.3 L, Globulin 3.0, Albumin/Globulin Ratio 1.1 03/26/18 05:20: B-Natriuretic Peptide 846 H 03/26/18 05:20: Magnesium 2.4 H 03/26/18 05:20: Lactate 2.5 H 03/26/18 05:20: Mycoplasma pneumon IgM Non-reactive 03/26/18 05:27: Specimen Source Right radial, O2 % 28% nc, ABG pH 7.48 H, ABG pCO2 23.2 L, ABG pO2 55.0 L, ABG HCO3 16.9 L, ABG Total CO2 17.6 L, ABG O2 Saturation 89 L, ABG Base Excess -6.6 L, Mac Test Acceptable 03/26/18 06:33: Chlamy pneumoniae PCR Not detected, Adenovirus (PCR) Not de tected, B.parapertussis DNA PCR Not detected, Coronavirus OC43 (PCR) Not detected, Coronavirus HKU1 (PCR) Not detected, Coronavirus 229E (PCR) Not detected, Coronavirus NL63 (PCR) Not detected, Human Metapneumovir PCR Not detected, Influenza A (H1) PCR Not detected, Influ A (H1N1/09) PCR Not detected, Influenza A (H3) PCR Not detected, Influenza Type A (PCR) Not detected, Influenza Type B (PCR) Not detected, M. pneumoniae (PCR) Not detected, Parainfluenza 1 (PCR) Not detected, Parainfluenza 2 (PCR) Not detected, Parainfluenza 3 (PCR) Not detected, Parainfluenza 4 (PCR) Not detected, RSV (PCR) Not detected, Entero/Rhino (PCR) Not detected 03/26/18 09:50: Lactate 1.8 I & O for Last 24 hours: Intake & Output 03/23/18 03/24/18 03/25/18 03/26/18 23:59 23:59 23:59 23:59 Output Total 300 / 300 Balance -300 / -300 Weight 111.158 kg Assessment and Plan (1) Acute respiratory failure with hypoxia Current visit: Yes Status: Acute Category: Medical Code(s): J96.01 - Acute respiratory failure with hypoxia (2) Bilateral lower extremity edema Current visit: Yes Status: Acute Category: Medical Code(s): R60.0 - Localized edema (3) Bilateral pleural effusion Current visit: Yes Status: Acute Category: Medical Code(s): J90 - Pleural effusion, not elsewhere classified - Assessment and plan all Dx Assessment and Plan for all problems:: CLARIFIED HOME MEDICATIONS WITH PATIENT. SHE STATES SHE TAKES NO HOME MEDICATIONS.
--- NOTE | 2018-03-26 10:34 | Pharmacy Consult Notes ---
[facility] Pharmacy VTE Monitoring - Patient Demographics Admission date: 03/26/18 Report Date: 03/26/18 Time: 10:34 Allergies/Adverse Reactions: Patient Allergies No Known Allergies Allergy (Verified 03/13/18 02:51) Height: 1.68 m Weight: 111.158 kg Patient Problems: Current Active Problems Hypoxia (Acute) Hospital-acquired pneumonia (Acute) Acute respiratory failure with hypoxia (Acute) Leukocytosis (Acute) Left shift (Acute) Elevated brain natriuretic peptide (BNP) level (Acute) Hypoproteinemia (Acute) Hypoalbuminemia (Acute) Bilateral pleural effusion (Acute) Bilateral lower extremity edema (Acute) - VTE Risk Labs: VTE Related Lab Results Hgb 15.3 g/dL (12.2-16.2) 03/26/18 05:20 Hct 47.8 % (37.0-47.0) H 03/26/18 05:20 Plt Count 443 K/mm3 (142-424) H 03/26/18 05:20 PT 9.9 seconds (9.4-11.8) 03/26/18 05:20 INR 0.96 (0.9-1.1) 03/26/18 05:20 BUN 19 mg/dL (7-18) H 03/26/18 05:20 Creatinine 1.31 mg/dL (0.55-1.02) H 03/26/18 05:20 Estimated Creat Clear 99 mL/min (0-300) 03/26/18 05:20 Clinical Trial Participant: No - Prophylaxis VTE Prophylaxis Ordered?: Yes Types of VTE Prophylaxis: TEDS Knee High
--- NOTE | 2018-03-26 11:31 | Pharmacy Consult Notes ---
- Pharmacy Consult Date: 03/26/18 Time: 11:30 Referring provider: DR. BIRCH Reason for Consult:: VANCOMYCIN DOSING Allergies and ADEs:: Allergies Allergy/AdvReac Type Severity Reaction Status Date / Time No Known Allergies Allergy Verified 03/13/18 02:51 Home Medications:: Home Medications Medication Instructions Recorded Confirmed Type Amoxicillin/Potassium Clav 1 tab PO Q12H 03/26/18 03/26/18 History [Augmentin 875-125 Tablet] Height: 1.68 m Weight: 111.158 kg Laboratory Results:: Laboratory Results - last 24 hr 03/26/18 05:20: WBC 19.9 H, RBC 4.95, Hgb 15.3, Hct 47.8 H, MCV 96.4, MCH 30.9, MCHC 32.1, RDW 15.1, Plt Count 443 H, MPV 8.2, Neut % (Auto) 89.5 H, Lymph % (Auto) 6.8 L, [place] % (Auto) 3.1, Eos % (Auto) 0.4, Baso % (Auto) 0.3, Neut # (Auto) 17.8 H, Lymph # (Auto) 1.4, [place] # (Auto) 0.6, Eos # (Auto) 0.1, Baso # (Auto) 0.1, Total Counted 100, Neutrophils % (Manual) 89 H, Band Neutrophils % 2.0, Lymphocytes % (Manual) 5 L, Monocytes % (Manual) 4, Platelet Estimate Slight increase 03/26/18 05:20: PT 9.9, INR 0.96, D-Dimer 267 03/26/18 05:20: Sodium 141, Potassium 4.7, Chloride 106, Carbon Dioxide 19 L, Anion Gap 20.7 H, BUN 19 H, Creatinine 1.31 H, Estimated Creat Clear 99, Estimated GFR 45 L, Est GFR ( Amer) 55 L, Glucose 119 H, Calcium 8.8, Total Bilirubin 0.9, AST 35, ALT 91 H, Alkaline Phosphatase 109, Total Creatine Kinase 87, CK-MB (CK-2) 2.0, CK-MB (CK-2) Rel Index 2.3, Troponin I 0.02, Total Protein 6.3 L, Albumin 3.3 L, Globulin 3.0, Albumin/Globulin Ratio 1.1 03/26/18 05:20: B-Natriuretic Peptide 846 H 03/26/18 05:20: Magnesium 2.4 H 03/26/18 05:20: Lactate 2.5 H 03/26/18 05:20: Mycoplasma pneumon IgM Non-reactive 03/26/18 05:27: Specimen Source Right radial, O2 % 28% nc, ABG pH 7.48 H, ABG pCO2 23.2 L, ABG pO2 55.0 L, ABG HCO3 16.9 L, ABG Total CO2 17.6 L, ABG O2 Saturation 89 L, ABG Base Excess -6.6 L, Mac Test Acceptable 03/26/18 06:33: Chlamy pneumoniae PCR Not detected, Adenovirus (PCR) Not detected, B.parapertussis DNA PCR Not detected, Coronavirus OC43 (PCR) Not detected, Coronavirus HKU1 (PCR) Not detected, Coronavirus 229E (PCR) Not detected, Coronavirus NL63 (PCR) Not detected, Human Metapneumovir PCR Not detected, Influenza A (H1) PCR Not detected, Influ A (H1N1/09) PCR Not detected, Influenza A (H3) PCR Not detected, Influenza Type A (PCR) Not detected, Influenza Type B (PCR) Not detected, M. pneumoniae (PCR) Not detected, Parainfluenza 1 (PCR) Not detected, Parainfluenza 2 (PCR) Not detected, Parainfluenza 3 (PCR) Not detected, Parainfluenza 4 (PCR) Not detected, RSV (PCR) Not detected, Entero/Rhino (PCR) Not detected 03/26/18 09:50: Lactate 1.8 Medical History: Reports:: Hypertension Denies:: Cancer, Diabetes Mellitus Type 1, Diabetes Mellitus Type 2, MRSA Assessment and Plan (1) Acute respiratory failure with hypoxia Current visit: Yes Status: Acute Category: Medical Code(s): J96.01 - Acute respiratory failure with hypoxia (2) Bilateral lower extremity edema Current visit: Yes Status: Acute Category: Medical Code(s): R60.0 - Localized edema (3) Bilateral pleural effusion Current visit: Yes Status: Acute Category: Medical Code(s): J90 - Pleural effusion, not elsewhere classified - Assessment and plan all Dx Assessment and Plan for all problems:: BASED ON PATIENT FACTORS, RECOMMEND VANCOMYCIN 2 GM IV Q18H. PHARMACY WILL MONITOR DAILY AND ADJUST APPROPRIATE.
[2018-03-26 11:53] LABS: Appearance,Urine SL CLOUDY (Clear); Bilirubin,Urine Negative (Negative); Blood, Urine TRACE-L (Negative); Color,Urine YELLOW (Yellow); Glucose,Urine (UA) Negative (Negative); Ketones,Urine Negative (Negative); Leukocyte Esterase,Urine TRACE (Negative); Microscopic, Urine URINE MICROSCOPIC (MICROSCOPIC); Protein,Urine Negative (Negative)
[2018-03-26 12:07] LABS: Bacteria,Urine Trace /lpf; Squamous Epithelial Cell,Urine Occasional #/hpf (0-5); WBC,Urine Occasional #/hpf (0-3)
--- NOTE | 2018-03-26 14:22 | Consult Report ---
History of Present Illness Consult date: 03/26/18 Requesting physician: Amira Berkowitz Consult reason: shortness of breath Chief complaint: CHF, Cardiomyopathy, Respiratory distress Additional Medical History:: 1. History of nonischemic cardiomyopathy, 2014, normal coronary arteries with mild pulmonary hypertension by right and left heart catheterization, Dr. Marito Gamble, [facility] A. Improved cardiomyopathy with medical therapy with ejection fraction of 48%, 2014/2015 2. Obesity 3. Medication noncompliance due to financial problems 4. HTN History of present illness: 37-year-old white female with history of nonischemic cardiomyopathy felt to be due to viral myocarditis in 2014 had improved to near normal in 2016. Patient unfortunately has been unable to afford her medications for the last year or more and now has been hospitalized 3 times in the last couple of weeks for presumed pneumonia with echocardiogram this admission showing severe dilated cardiomyopathy with ejection fraction of approximately 20%. Patient has been restarted on lisinopril and low-dose Coreg with Lasix and spironolactone with subsequent 2 L of urine output since 9:00 this a.m. Patient is currently sitting in bed on BiPAP and states she feels improved. She denies smoking or diabetes. Cardiology consulted for evaluation of acute respiratory distress. Patient's BNP is elevated over 800 with chest x-ray evidence of bilateral congestive heart failure/pneumonia. CTA of the chest has ruled out pulmonary emboli. Preliminary lower extremity venous Doppler is negative for DVT. [facility] History Medical History: Reports:: Hypertension Denies:: Cancer, Diabetes Mellitus Type 1, Diabetes Mellitus Type 2, MRSA Other Medical History: Reports: Sinus Problems Other Surgeries: Yes: No Previous Surgery Amputation: No Fractures: No - *Social History Educational Level: Attended High School Smoking Status: Never smoker Alcohol Intake: never Occupational Status: employed Housing: house Household Members: significant other, children - Psychiatric History Expresses thoughts of harming self/others: None Suicide Plan Description: No Plan *Family Hx:: Asthma, Cancer, Diabetes, Heart Attack, Hypertension Meds Home Medications Medication Instructions Recorded Confirmed Type Amoxicillin/Potassium Clav 1 tab PO Q12H 03/26/18 03/26/18 History [Augmentin 875-125 Tablet] Allergies Allergy/AdvReac Type Severity Reaction Status Date / Time No Known Allergies Allergy Verified 03/13/18 02:51 Review of Systems - *Cardiovascular Reports shortness of breath, Reports shortness of breath with activity - *Respiratory Reports cough, Reports shortness of breath, Reports shortness of breath with activity - *Gastrointestinal Denies loose stools - *Genitourinary Denies blood in urine - *Neurologic Denies headache(s), Denies dizziness, Denies weakness Exam Vital signs and Labs for Last 24 Hours: Temp Pulse Resp BP Pulse Ox 97.8 F 100 H 32 H 128/88 98 03/26/18 13:00 03/26/18 13:00 03/26/18 13:00 03/26/18 13:00 03/26/18 13:00 Laboratory Results - last 24 hr 03/26/18 05:20: WBC 19.9 H, RBC 4.95, Hgb 15.3, Hct 47.8 H, MCV 96.4, MCH 30.9, MCHC 32.1, RDW 15.1, Plt Count 443 H, MPV 8.2, Neut % (Auto) 89.5 H, Lymph % (Auto) 6.8 L, [place] % (Auto) 3.1, Eos % (Auto) 0.4, Baso % (Auto) 0.3, Neut # (Auto) 17.8 H, Lymph # (Auto) 1.4, [place] # (Auto) 0.6, Eos # (Auto) 0.1, Baso # (Auto) 0.1, Total Counted 100, Neutrophils % (Manual) 89 H, Band Neutrophils % 2.0, Lymphocytes % (Manual) 5 L, Monocytes % (Manual) 4, Platelet Estimate Slight increase 03/26/18 05:20: PT 9.9, INR 0.96, D-Dimer 267 03/26/18 05:20: Sodium 141, Potassium 4.7, Chloride 106, Carbon Dioxide 19 L, Anion Gap 20.7 H, BUN 19 H, Creatinine 1.31 H, Estimated Creat Clear 99, Est imated GFR 45 L, Est GFR ( Amer) 55 L, Glucose 119 H, Calcium 8.8, Total Bilirubin 0.9, AST 35, ALT 91 H, Alkaline Phosphatase 109, Total Creatine Kinase 87, CK-MB (CK-2) 2.0, CK-MB (CK-2) Rel Index 2.3, Troponin I 0.02, Total Protein 6.3 L, Albumin 3.3 L, Globulin 3.0, Albumin/Globulin Ratio 1.1 03/26/18 05:20: B-Natriuretic Peptide 846 H 03/26/18 05:20: Magnesium 2.4 H 03/26/18 05:20: Lactate 2.5 H 03/26/18 05:20: Mycoplasma pneumon IgM Non-reactive 03/26/18 05:27: Specimen Source Right radial, O2 % 28% nc, ABG pH 7.48 H, ABG pCO2 23.2 L, ABG pO2 55.0 L, ABG HCO3 16.9 L, ABG Total CO2 17.6 L, ABG O2 Saturation 89 L, ABG Base Excess -6.6 L, Mac Test Acceptable 03/26/18 06:33: Chlamy pneumoniae PCR Not detected, Adenovirus (PCR) Not detected, B.parapertussis DNA PCR Not detected, Coronavirus OC43 (PCR) Not detected, Coronavirus HKU1 (PCR) Not detected, Coronavirus 229E (PCR) Not detected, Coronavirus NL63 (PCR) Not detected, Human Metapneumovir PCR Not detected, Influenza A (H1) PCR Not detected, Influ A (H1N1/09) PCR Not detected, Influenza A (H3) PCR Not detected, Influenza Type A (PCR) Not detected, Influenza Type B (PCR) Not detected, M. pneumoniae (PCR) Not detected, Parainfluenza 1 (PCR) Not detected, Parainfluenza 2 (PCR) Not detected, Parainfluenza 3 (PCR) Not detected, Parainfluenza 4 (PCR) Not detected, RSV (PCR) Not detected, Entero/Rhino (PCR) Not detected 03/26/18 09:50: Lactate 1.8 03/26/18 11:30: Troponin I 0.04 03/26/18 11:46: Urine Color Yellow, Urine Appearance Sl cloudy, Urine pH 6.0, Ur Specific [place] 1.010, Urine Protein Negative, Urine Glucose (UA) Negative, Urine Ketones Negative, Urine Blood Trace-l, Urine Nitrate Negative, Urine Bilirubin Negative, Urine Urobilinogen 1.0, Ur Leukocyte Esterase Trace, Urine WBC Occasional, Ur Squamous Epith Cells Occasional, Urine Bacteria Trace I & O for Last 24 hours: Intake & Output 03/24/18 03/25/18 03/26/18 03/27/18 11:59 11:59 11:59 11:59 Output Total 1900 / 1900 Balance -1900 / -1900 Weight 245 lb 1 oz Microbiology Reports for the Last 24 Hours: Microbiology 03/26/18 09:25 Sputum - Expectorated Sputum Gram Stain - Final - *Routine Neck Exam Present: supple. Absent: JVD, carotid bruit Comments: Unable to adequately assess JVD or carotid bruits at this time due to the patient's respiratory distress. - *Routine Respiratory Exam Present: decreased breath sounds, diminished air movement. Absent: accessory muscle use, rales, rhonchi, wheezes - *Routine Cardiovascular Exam Present: RRR, tachycardia. Absent: murmur, gallop, rubs - *Routine Abdominal Exam Present: soft. Absent: tenderness, distended, guarding - *Routine Extremities Exam Present: edema. Absent: calf tenderness - *Routine Neurological Exam Present: alert, oriented X3, moving all extremities Assessment and Plan (1) Congestive heart failure Current visit: Yes Status: Acute Category: Medical Code(s): I50.9 - Heart failure, unspecified (2) Dilated cardiomyopathy Current visit: Yes Status: Acute Category: Medical Code(s): I42.0 - Dilated cardiomyopathy (3) ARDS (adult respiratory distress syndrome) Current visit: Yes Status: Acute Category: Medical Code(s): J80 - Acute respiratory distress syndrome (4) Acute respiratory failure with hypoxia Current visit: Yes Status: Acute Category: Medical Code(s): J96.01 - Acute respiratory failure with hypoxia (5) Bilateral lower extremity edema Current visit: Yes Status: Acute Category: Medical Code(s): R60.0 - L ocalized edema (6) Bilateral pneumonia Current visit: Yes Status: Acute Qualifiers: Pneumonia type: due to unspecified organism Lung location: upper lobe of lung Qualified Code(s): J18.1 - Lobar pneumonia, unspecified organism Category: Medical Code(s): J18.9 - Pneumonia, unspecified organism - Assessment and plan all Dx Assessment and Plan for all problems:: 1. Continue lisinopril 20 mg daily and Coreg 3.125 mg twice daily as directed with plans to titrate as tolerated. 2. Continue Lasix 80 mg twice daily along with spironolactone as ordered with close monitoring of electrolytes. 3. We will give potassium 40 mEq p.o. today 4. We will add digoxin 0.125 mg daily 5. Care management to consult for assistance with affording medications.
--- NOTE | 2018-03-26 15:47 | Cardiology Report ---
PROCEDURE: 2-D M-mode and color Doppler study INDICATIONS FOR THE TEST: Chest pain COPD Heart Murmur Tobacco Smoking Palpitations Fatigue Syncope Edema Hypertension Diabetes Mellitus Rheumatic Fever SOBXDOEXObesityXHyperlipidemia Family History HD Additional History PATIENT INFORMATION HEIGHT: 64 WEIGHT:240 GENDER: Female B/P:128/88 2-D/M-MODE INTERPRETATION: 2-D MEASUREMENTS OBSERVED VALUES IN CMS Right Ventricular Dimension (RVDd) 2.0 Interventricular Septum (Thickness)(IVsd) .8 Left Ventricular Internal Dimensions(LVIDd) 6.8 Left Ventricular Posterior Wall (Thickness)(LVPWd) .9 Aortic Root 3.3 Aortic Cusp Separation Left Atrial Dimensions (LAD) 3.6 2D 1. Technically difficult study because of the patient's factor and poor acoustic windows 2. The left atrium is moderately enlarged, left ventricle is moderately dilated, there is severely reduced left ventricular systolic function, visually estimated ejection fraction approximately 20-25%, left ventricle is globally hypokinetic. 3. The right atrium and right ventricle are normal size and contractility. 4. The aortic valve is minimally thickened and fibrosed. 5. The mitral and tricuspid valvular grossly normal. 6. The pulmonic valve is poorly visualized 7. No significant pericardial effusion noted. DOPPLER INTERROGATION: Doppler interrogation of the aortic, mitral and tricuspid valvular presence of moderate mitral and mild tricuspid regurgitation, tricuspid regurgitation jet velocity is inadequate for calculation of the right ventricular systolic pressure, diastolic parameters are inconclusive. CONCLUSION: 1. Technically difficult study because of the patient's factor and poor acoustic windows 2. Moderately enlarged left atrium, moderately dilated left ventricle, severely reduced left ventricular systolic function, visually estimated ejection fraction of 20-25%, left ventricle severely globally hypokinetic 3. Moderate mitral and mild tricuspid regurgitation 4. No significant pericardial effusion noted.
[2018-03-27 06:09] LABS: Anion Gap 12.7 mEq/L (5-15); Calcium 8.2 mg/dL (8.5-10.1); Potassium 3.7 mmoL/L (3.5-5.1)
--- NOTE | 2018-03-27 08:17 | Progress Note ---
<Anna Jacob - Last Filed: 03/27/18 08:14> Internal Medicine - PN: Subj *Date: 03/27/18 *Time: 08:14 Interval history: Pt is feeling better. She has diuresed since being given Lasix. Her shortness of breath has improved. She denies any pain today. She is still coughing. Exam Vital signs and Labs for Last 24 Hours: Temp Pulse Resp BP Pulse Ox 98.3 F 90 22 117/69 91 L 03/27/18 04:00 03/27/18 04:00 03/27/18 04:00 03/27/18 04:00 03/27/18 05:10 Laboratory Results - last 24 hr 03/26/18 09:50: Lactate 1.8 03/26/18 11:30: Troponin I 0.04 03/26/18 11:46: Urine Color Yellow, Urine Appearance Sl cloudy, Urine pH 6.0, Ur Specific [place] 1.010, Urine Protein Negative, Urine Glucose (UA) Negative, Urine Ketones Negative, Urine Blood Trace-l, Urine Nitrate Negative, Urine Bilirubin Negative, Urine Urobilinogen 1.0, Ur Leukocyte Esterase Trace, Urine WBC Occasional, Ur Squamous Epith Cells Occasional, Urine Bacteria Trace 03/26/18 14:50: Troponin I 0.05 03/27/18 05:31: Sodium 142, Potassium 3.7 D, Chloride 109 H, Carbon Dioxide 24 D, Anion Gap 12.7, BUN 18, Creatinine 1.06 H, Estimated Creat Clear 120, Estimated GFR 57 L, Est GFR ( Amer) 69 D, Glucose 102, Calcium 8.2 L I & O for Last 24 hours: Intake & Output 03/24/18 03/25/18 03/26/18 03/27/18 11:59 11:59 11:59 11:59 Intake Total 1761 / 1761 Output Total 1900 / 1900 4100 / 4100 Balance -1900 / -1900 -2339 / -2339 Weight 245 lb 1 oz 238 lb 6 oz Microbiology Reports for the Last 24 Hours: Microbiology 03/26/18 09:25 Sputum - Expectorated Sputum Gram Stain - Final 03/26/18 09:25 Sputum - Expectorated Sputum Sputum Culture - Preliminary - Constitutional no acute distress - *Routine Respiratory Exam Present: rales (bibasilar - improved), wheezes (improved) - *Routine Cardiovascular Exam Present: RRR - *Routine Abdominal Exam Present: soft, normoactive bowel sounds. Absent: tenderness - *Routine Extremities Exam Present: edema (1+ bilateral LE's) Assessment and Plan (1) Congestive heart failure Current visit: Yes Status: Acute Category: Medical Code(s): I50.9 - Heart failure, unspecified (2) Dilated cardiomyopathy Current visit: Yes Status: Acute Category: Medical Code(s): I42.0 - Di lated cardiomyopathy (3) ARDS (adult respiratory distress syndrome) Current visit: Yes Status: Acute Category: Medical Code(s): J80 - Acute respiratory distress syndrome (4) Acute respiratory failure with hypoxia Current visit: Yes Status: Acute Category: Medical Code(s): J96.01 - Acute respiratory failure with hypoxia (5) Bilateral lower extremity edema Current visit: Yes Status: Acute Category: Medical Code(s): R60.0 - Locali zed edema (6) Bilateral pneumonia Current visit: Yes Status: Acute Qualifiers: Pneumonia type: due to unspecified organism Lung location: upper lobe of lung Qualified Code(s): J18.1 - Lobar pneumonia, unspecified organism Category: Medical Code(s): J18.9 - Pneumonia, unspecified organism - Assessment and plan all Dx Assessment and Plan for all problems:: Patient is much improved today. She is now off of BiPAP and on nasal cannula. Cardiology has seen the patient and started her back on blood pressure medication. She is a candidate for a LifeVest, however the patient has no insurance, therefore this will be difficult. <Wero Gleason - Last Filed: 03/27/18 09:05> Exam Vital signs and Labs for Last 24 Hours: Temp Pulse Resp BP Pulse Ox 98.3 F 90 22 117/69 91 L 03/27/18 04:00 03/27/18 04:00 03/27/18 04:00 03/27/18 04:00 03/27/18 05:10 Laboratory Results - last 24 hr 03/26/18 09:50: Lactate 1.8 03/26/18 11:30: Troponin I 0.04 03/26/18 11:46: Urine Color Yellow, Urine Appearance Sl cloudy, Urine pH 6.0, Ur Specific [place] 1.010, Urine Protein Negative, Urine Glucose (UA) Negative, Urine Ketones Negative, Urine Blood Trace-l, Urine Nitrate Negative, Urine Bili guillen Negative, Urine Urobilinogen 1.0, Ur Leukocyte Esterase Trace, Urine WBC Occasional, Ur Squamous Epith Cells Occasional, Urine Bacteria Trace 03/26/18 14:50: Troponin I 0.05 03/27/18 05:31: Sodium 142, Potassium 3.7 D, Chloride 109 H, Carbon Dioxide 24 D, Anion Gap 12.7, BUN 18, Creatinine 1.06 H, Estimated Creat Clear 120, Estimated GFR 57 L, Est GFR ( Amer) 69 D, Glucose 102, Calcium 8.2 L I & O for Last 24 hours: Intake & Output 03/24/18 03/25/18 03/26/18 03/27/18 11:59 11:59 11:59 11:59 Intake Total 1881 / 1881 Output Total 1900 / 1900 4100 / 4100 Balance -1900 / -1900 -2219 / -2219 Weight 245 lb 1 oz 238 lb 6 oz Microbiology Reports for the Last 24 Hours: Microbiology 03/26/18 09:25 Sputum - Expectorated Sputum Gram Stain - Final 03/26/18 09:25 Sputum - Expectorated Sputum Sputum Culture - Preliminary Assessment and Plan (1) Congestive heart failure Current visit: Yes Status: Acute Category: Medical Code(s): I50.9 - Heart failure, unspecified (2) Dilated cardiomyopathy Current visit: Yes Status: Acute Category: Medical Code(s): I42.0 - Dilated cardiomyopathy (3) ARDS (adult respiratory distress syndrome) Current visit: Yes Status: Acute Category: Medical Code(s): J80 - Acute respiratory distress syndrome (4) Acute respiratory failure with hypoxia Current visit: Yes Status: Acute Category: Medical Code(s): J96.01 - Acute respiratory failure with hypoxia (5) Bilateral lower extremity edema Current visit: Yes Status: Acute Category: Medical Code(s): R60.0 - Localized edema (6) Bilateral pneumonia Current visit: Yes Status: Acute Qualifiers: Pneumonia type: due to unspecified organism Lung location: upper lobe of lung Qualified Code(s): J18.1 - Lobar pneumonia, unspecified organism Category: Medical Code(s): J18.9 - Pneumonia, unspecified organism - Assessment and plan all Dx Assessment and Plan for all problems:: Saw patient, agree with above note. Plan to transfer out of step down today.
--- NOTE | 2018-03-27 08:25 | Progress Note ---
Subjective Date: 03/27/18 Time: 08:14 Principal diagnosis: CHF, Cardiomyopathy Interval history: 38 yo WF sitting in bed in NAD on oxygen via NC. Breathing better. No chest pains. Telemetry shows 10 beat run of V. Tach of 150 bpm. Pt had a 7 lb wt loss overnight due to diuresis. Exam Vital signs and Labs for Last 24 Hours: Temp Pulse Resp BP Pulse Ox 98.3 F 90 22 117/69 91 L 03/27/18 04:00 03/27/18 04:00 03/27/18 04:00 03/27/18 04:00 03/27/18 05:10 Laboratory Results - last 24 hr 03/26/18 09:50: Lactate 1.8 03/26/18 11:30: Troponin I 0.04 03/26/18 11:46: Urine Color Yellow, Urine Appearance Sl cloudy, Urine pH 6.0, Ur Specific [place] 1.010, Urine Protein Negative, Urine Glucose (UA) Negative, Urine Ketones Negative, Urine Blood Trace-l, Urine Nitrate Negative, Urine Bilirubin Negative, Urine Urobilinogen 1.0, Ur Leukocyte Esterase Trace, Urine WBC Occasional, Ur Squamous Epith Cells Occasional, Urine Bacteria Trace 03/26/18 14:50: Troponin I 0.05 03/27/18 05:31: Sodium 142, Potassium 3.7 D, Chloride 109 H, Carbon Dioxide 24 D, Anion Gap 12.7, BUN 18, Creatinine 1.06 H, Estimated Creat Clear 120, Estimated GFR 57 L, Est GFR ( Amer) 69 D, Glucose 102, Calcium 8.2 L I & O for Last 24 hours: Intake & Output 03/24/18 03/25/18 03/26/18 03/27/18 11:59 11:59 11:59 11:59 Intake Total 1761 / 1761 Output Total 1900 / 1900 4100 / 4100 Balance -1900 / -1900 -2339 / -2339 Weight 245 lb 1 oz 238 lb 6 oz Microbiology Reports for the Last 24 Hours: Microbiology 03/26/18 09:25 Sputum - Expectorated Sputum Gram Stain - Final 03/26/18 09:25 Sputum - Expectorated Sputum Sputum Culture - Preliminary - *Routine Respiratory Exam Present: decreased breath sounds, rhonchi, diminished air movement. Absent: accessory muscle use, rales, wheezes - *Routine Cardiovascular Exam Present: RRR. Absent: murmur, gallop, rubs - *Routine Extremities Exam Present: edema. Absent: calf tenderness - *Routine Neurological Exam Present: alert, oriented X3, moving all extremities Progress Note: A&P (1) Congestive heart failure Status: Acute Current Visit: Yes (2) Dilated cardiomyopathy Status: Acute Current Visit: Yes (3) ARDS (adult respiratory distress syndrome) Status: Acute Current Visit: Yes (4) Acute respiratory failure with hypoxia Status: Acute Current Visit: Yes (5) Bilateral lower extremity edema Status: Acute Current Visit: Yes (6) Bilateral pneumonia Status: Acute Current Visit: Yes Assessment and Plan for All Diagnoses:: 1. Will increase coreg to 6.25 mg BID and reduce lisinopril to 10 mg daily. 2. Continue lasix and spironolactone with supplemental potassium. Adjust as labs indicate. 3. Discussed LifeVest with patient, but she is concerned about cost. She has no insurance. 4. Recommend continued treatment in hospital for another 24-48 hrs with pt off work upon discharge until seen in office next week.
[2018-03-28 05:54] LABS: Anion Gap 14.1 mEq/L (5-15); Calcium 8.3 mg/dL (8.5-10.1); Potassium 4.1 mmoL/L (3.5-5.1)
--- NOTE | 2018-03-28 08:37 | Progress Note ---
Internal Medicine - PN: Subj *Date: 03/28/18 *Time: 08:34 Interval history: Patient with no new complaints today, she feels a little better today, still getting supplemental O2 at 3L/min Exam Vital signs and Labs for Last 24 Hours: Temp Pulse Resp BP Pulse Ox 97.2 F L 88 20 108/67 L 98 03/28/18 07:55 03/28/18 07:55 03/28/18 07:55 03/28/18 07:55 03/28/18 07:55 Laboratory Results - last 24 hr 03/28/18 05:35: Sodium 142, Potassium 4.1, Chloride 108 H, Carbon Dioxide 24, Anion Gap 14.1, BUN 20 H, Creatinine 1.02, Estimated Creat Clear 124, Estimated GFR 60, Est GFR ( Amer) 73, Glucose 100, Calcium 8.3 L I & O for Last 24 hours: Intake & Output 03/25/18 03/26/18 03/27/18 03/28/18 11:59 11:59 11:59 11:59 Intake Total 1881 / 1881 3024 / 3024 Output Total 1900 / 1900 4100 / 4100 6775 / 6775 Balance -1900 / -1900 -2219 / -2219 -3751 / -3751 Weight 245 lb 1 oz 238 lb 6 oz 236 lb 1 oz Microbiology Reports for the Last 24 Hours: Microbiology 03/26/18 09:25 Sputum - Expectorated Sputum Gram Stain - Final 03/26/18 09:25 Sputum - Expectorated Sputum Sputum Culture - Preliminary Yeast 03/26/18 05:20 Blood Blood Culture - Preliminary NO GROWTH AFTER 48 HOURS 03/26/18 05:20 Blood Blood Culture - Preliminary NO GROWTH AFTER 48 HOURS - Constitutional no acute distress - *Routine HEENT Exam Head: Present: normocephalic Eye: Present: EOMI, PERRL ENT: Present: mucous membranes moist - *Routine Neck Exam Present: supple. Absent: lymphadenopathy - *Routine Respiratory Exam Present: CTA bilaterally - *Routine Cardiovascular Exam Present: RRR - *Routine Abdominal Exam Present: soft, normoactive bowel sounds. Absent: tenderness - *Routine Extremities Exam Absent: cyanosis, clubbing, edema - *Routine Skin Exam Present: warm. Absent: rash - *Routine Neurological Exam Present: alert, oriented X3 Assessment and Plan (1) Congestive heart failure Current visit: Yes Status: Acute Category: Medical Code(s): I50.9 - Heart failure, unspecified (2) Dilated cardiomyopathy Current visit: Yes Status: Acute Category: Medical Code(s): I42.0 - Dilated cardiomyopathy (3) ARDS (adult respiratory distress syndrome) Current visit: Yes Status: Acute Category: Medical Code(s): J80 - Acute respiratory distress syndrome (4) Acute respiratory failure with hypoxia Current visit: Yes Status: Acute Category: Medical Code(s): J96.01 - Acute respiratory failure with hypoxia (5) Bilateral lower extremity edema Current visit: Yes Status: Acute Category: Medical Code(s): R60.0 - Localized edema (6) Bilateral pneumonia Current visit: Yes Status: Acute Qualifiers: Pneumonia type: due to unspecified organism Lung location: upper lobe of lung Qualified Code(s): J18.1 - Lobar pneumonia, unspecified organism Category: Medical Code(s): J18.9 - Pneumonia, unspecified organism - Assessment and plan all Dx Assessment and Plan for all problems:: Patient is slowly improving, will saline lock IVF today and decrease Lasix dose to once daily, continue to wean supplemental oxygen when possible.
--- NOTE | 2018-03-28 12:02 | Pharmacy Consult Notes ---
- Pharmacy Consult Date: 03/28/18 Time: 12:00 Referring provider: DR. BIRCH Reason for Consult:: VANCOMYCIN TROUGH RESULT Allergies and ADEs:: Allergies Allergy/AdvReac Type Severity Reaction Status Date / Time No Known Allergies Allergy Verified 03/13/18 02:51 Home Medications:: Home Medications Medication Instructions Recorded Confirmed Type Amoxicillin/Potassium Clav 1 tab PO Q12H 03/26/18 03/26/18 History [Augmentin 875-125 Tablet] Height: 1.68 m Weight: 107.076 kg Laboratory Results:: Laboratory Results - last 24 hr 03/28/18 05:35: Sodium 142, Potassium 4.1, Chloride 108 H, Carbon Dioxide 24, Anion Gap 14.1, BUN 20 H, Creatinine 1.02, Estimated Creat Clear 124, Estimated GFR 60, Est GFR ( Amer) 73, Glucose 100, Calcium 8.3 L 03/28/18 11:25: Vancomycin Trough 14.9 Medical History: Reports:: Hypertension Denies:: Cancer, Diabetes Mellitus Type 1, Diabetes Mellitus Type 2, MRSA Assessment and Plan (1) Congestive heart failure Current visit: Yes Status: Acute Category: Medical Code(s): I50.9 - Heart failure, unspecified (2) Dilated cardiomyopathy Current visit: Yes Status: Acute Category: Medical Code(s): I42.0 - Dilated cardiomyopathy (3) ARDS (adult respiratory distress syndrome) Current visit: Yes Status: Acute Category: Medical Code(s): J80 - Acute respiratory distress syndrome (4) Acute respiratory failure with hypoxia Current visit: Yes Status: Acute Category: Medical Code(s): J96.01 - Acute respiratory failure with hypoxia (5) Bilateral lower extremity edema Current visit: Yes Status: Acute Category: Medical Code(s): R60.0 - Localized edema (6) Bilateral pneumonia Current visit: Yes Status: Acute Qualifiers: Pneumonia type: due to unspecified organism Lung location: upper lobe of lung Qualified Code(s): J18.1 - Lobar pneumonia, unspecified organism Category: Medical Code(s): J18.9 - Pneumonia, unspecified organism - Assessment and plan all Dx Assessment and Plan for all problems:: BASED ON PATIENT FACTORS AND VANCOMYCIN TROUGH LEVEL OF 14.9, RECOMMEND CONTINUING CURRENT DOSE OF VANCOMYCIN 2GM IV Q18H. PHARMACY WILL CONTINUE TO MONITOR AND WILL ADJUST DOSE APPROPRIATE. -SEB BAUTISTAD
[2018-03-29 06:17] LABS: Basophils % 0.4 % (0.1-2.0); Eosinophils # 0.1 K/mm3 (0.0-0.4); Eosinophils % 1.6 % (0.1-12.0); Hematocrit 42.2 % (37.0-47.0); Hemoglobin 13.6 g/dL (12.2-16.2); Lymphocytes # 0.9 K/mm3 (0.7-4.5); Lymphocytes % 10.9 K/mm3 (10-50); Mean Corpuscular HGB Conc 32.1 g/dL (31.8-35.4); Mean Corpuscular Hemoglobin 30.9 pg (27.0-31.2); Mean Corpuscular Volume 96.3 fl (81-99); Mean Platelet Volume 7.8 fl (7.4-10.4); Monocytes # 0.4 K/mm3 (0.1-1.0); Monocytes % 5.2 % (1.7-9.3); Neutrophils # 6.9 K/mm3 (1.8-7.8); Neutrophils % 81.8 % (37.0-80.0); Platelet Count 321 K/mm3 (142-424); Red Blood Count 4.39 M/mm3 (4.20-5.40); White Blood Count 8.4 K/mm3 (4.8-10.8)
[2018-03-29 06:47] LABS: Calcium 8.5 mg/dL (8.5-10.1); Potassium 4.5 mmoL/L (3.5-5.1)
[2018-03-29 06:53] LABS: Anion Gap 16.5 mEq/L (5-15)
--- NOTE | 2018-03-29 10:33 | Progress Note ---
Internal Medicine - PN: Subj *Date: 03/29/18 *Time: 10:31 Interval history: Patient with no new complaints, feels better today, breathing has improved, still has duran, IV fluids still infusing. Exam Vital signs and Labs for Last 24 Hours: Temp Pulse Resp BP Pulse Ox 98.0 F 90 20 132/84 96 03/29/18 08:00 03/29/18 08:06 03/29/18 08:00 03/29/18 08:00 03/29/18 08:06 Laboratory Results - last 24 hr 03/28/18 11:25: Vancomycin Trough 14.9 03/29/18 05:50: Sodium 142, Potassium 4.5, Chloride 107, Carbon Dioxide 23, Anion Gap 16.5 H, BUN 21 H, Creatinine 1.06 H, Estimated Creat Clear 118, Estimated GFR 57 L, Est GFR ( Amer) 69, Glucose 91, Calcium 8.5 03/29/18 05:50: WBC 8.4, RBC 4.39, Hgb 13.6, Hct 42.2, MCV 96.3, MCH 30.9, MCHC 32.1, RDW 15.0, Plt Count 321 D, MPV 7.8, Neut % (Auto) 81.8 H, Lymph % (Auto) 10.9, Amelia % (Auto) 5.2, Eos % (Auto) 1.6, Baso % (Auto) 0.4, Neut # (Auto) 6.9, Lymph # (Auto) 0.9, Amelia # (Auto) 0.4, Eos # (Auto) 0.1, Baso # (Auto) 0.0 I & O for Last 24 hours: Intake & Output 03/26/18 03/27/18 03/28/18 03/29/18 11:59 11:59 11:59 11:59 Intake Total 1881 / 1881 3174 / 3174 1210 / 1210 Output Total 1900 / 1900 4100 / 4100 6775 / 6775 4100 / 4100 Balance -1900 / -1900 -2219 / -2219 -3601 / -3601 -2890 / -2890 Weight 245 lb 1 oz 238 lb 6 oz 236 lb 1 oz 233 lb 7 oz Microbiology Reports for the Last 24 Hours: Microbiology 03/26/18 09:25 Sputum - Expectorated Sputum Gram Stain - Final 03/26/18 09:25 Sputum - Expectorated Sputum Sputum Culture - Preliminary Yeast - Constitutional no acute distress - *Routine HEENT Exam Head: Present: normocephalic Eye: Present: EOMI, PERRL ENT: Present: mucous membranes moist - *Routine Neck Exam Present: supple. Absent: lymphadenopathy - *Routine Respiratory Exam Present: CTA bilaterally - *Routine Cardiovascular Exam Present: RRR - *Routine Abdominal Exam Present: soft, normoactive bowel sounds. Absent: tenderness - *Routine Extremities Exam Absent: cyanosis, clubbing, edema - *Routine Skin Exam Present: warm. Absent: rash - *Routine Neurological Exam Present: alert, oriented X3 Assessment and Plan (1) Congestive heart failure Current visit: Yes Status: Acute Category: Medical Code(s): I50.9 - Heart failure, unspecified (2) Dilated cardiomyopathy Current visit: Yes Status: Acute Category: Medical Code(s): I42.0 - Dilated cardiomyopathy (3) ARDS (adult respiratory distress syndrome) Current visit: Yes Status: Acute Category: Medical Code(s): J80 - Acute respiratory distress syndrome (4) Acute respiratory failure with hypoxia Current visit: Yes Status: Acute Category: Medical Code(s): J96.01 - Acute respiratory failure with hypoxia (5) Bilateral lower extremity edema Current visit: Yes Status: Acute Category: Medical Code(s): R60.0 - Localized edema (6) Bilateral pneumonia Current visit: Yes Status: Acute Qualifiers: Pneumonia type: due to unspecified organism Lung location: upper lobe of lung Qualified Code(s): J18.1 - Lobar pneumonia, unspecified organism Category: Medical Code(s): J18.9 - Pneumonia, unspecified organism - Assessment and plan all Dx Assessment and Plan for all problems:: Patient has improved, off of supplemental oxygen now, will remove duran and saline lock IVF now, probable discharge home tomorrow.
[2018-03-30 06:04] LABS: Anion Gap 12.8 mEq/L (5-15); Potassium 4.8 mmoL/L (3.5-5.1)
--- NOTE | 2018-03-30 07:32 | Progress Note ---
Internal Medicine - PN: Subj *Date: 03/30/18 *Time: 07:30 Exam Vital signs and Labs for Last 24 Hours: Temp Pulse Resp BP Pulse Ox 98.1 F 77 23 103/58 L 94 L 03/30/18 04:00 03/30/18 04:00 03/30/18 04:00 03/30/18 04:00 03/30/18 04:00 Laboratory Results - last 24 hr 03/30/18 05:40: Sodium 139, Potassium 4.8, Chloride 105, Carbon Dioxide 26, Anion Gap 12.8, BUN 21 H, Creatinine 1.21 H, Estimated Creat Clear 103, Estimated GFR 49 L, Est GFR ( Amer) 60, Glucose 100, Calcium 9.0 I & O for Last 24 hours: Intake & Output 03/27/18 03/28/18 03/29/18 03/30/18 23:59 23:59 23:59 23:59 Intake Total 3056 / 3056 2507 / 2507 150 / 150 240 / 240 Output Total 6325 / 6325 4150 / 4150 2550 / 2550 400 / 400 Balance -3269 / -3269 -1643 / -1643 -2400 / -2400 -160 / -160 Weight 108.125 kg 107.076 kg 105.885 kg 104.808 kg Microbiology Reports for the Last 24 Hours: Microbiology 03/26/18 09:25 Sputum - Expectorated Sputum Gram Stain - Final 03/26/18 09:25 Sputum - Expectorated Sputum Sputum Culture - Final Yeast Assessment and Plan (1) Congestive heart failure Current visit: Yes Status: Acute Category: Medical Code(s): I50.9 - Heart failure, unspecified (2) Dilated cardiomyopathy Current visit: Yes Status: Acute Category: Medical Code(s): I42.0 - Dilated cardiomyopathy (3) ARDS (adult respiratory distress syndrome) Current visit: Yes Status: Acute Category: Medical Code(s): J80 - Acute respiratory distress syndrome (4) Acute respiratory failure with hypoxia Current visit: Yes Status: Acute Category: Medical Code(s): J96.01 - Acute respiratory failure with hypoxia (5) Bilateral lower extremity edema Current visit: Yes Status: Acute Category: Medical Code(s): R60.0 - Localized edema (6) Bilateral pneumonia Current visit: Yes Status: Acute Qualifiers: Pneumonia type: due to unspecified organism Lung location: upper lobe of lung Qualified Code(s): J18.1 - Lobar pneumonia, unspecified organism Category: Medical Code(s): J18.9 - Pneumonia, unspecified organism The patient's infection will respond to the chosen ABx?: Yes Is the patient receiving the right drug, dose, and route?: Yes Could a more targeted ABx be ordered?: No
--- NOTE | 2018-03-30 08:23 | Progress Note ---
Internal Medicine - PN: Subj *Date: 03/30/18 *Time: 08:18 Interval history: 38-year-old white female in bed in no acute distress. Patient states she is breathing and feeling much better. Per the intake and output and vital signs area of the chart, she has lost more than 15 pounds in the last few days with diuresis. Review of telemetry reveals arrhythmias have resolved with no further PVCs or V. tach. Exam Vital signs and Labs for Last 24 Hours: Temp Pulse Resp BP Pulse Ox 97.4 F L 89 18 96/58 L 95 03/30/18 08:00 03/30/18 08:00 03/30/18 08:00 03/30/18 08:00 03/30/18 08:00 Laboratory Results - last 24 hr 03/30/18 05:40: Sodium 139, Potassium 4.8, Chloride 105, Carbon Dioxide 26, Anion Gap 12.8, BUN 21 H, Creatinine 1.21 H, Estimated Creat Clear 103, Estimated GFR 49 L, Est GFR ( Amer) 60, Glucose 100, Calcium 9.0 I & O for Last 24 hours: Intake & Output 03/27/18 03/28/18 03/29/18 03/30/18 11:59 11:59 11:59 11:59 Intake Total 1881 / 1881 3174 / 3174 1360 / 1360 480 / 480 Output Total 4100 / 4100 6775 / 6775 4100 / 4100 2150 / 2150 Balance -2219 / -2219 -3601 / -3601 -2740 / -2740 -1670 / -1670 Weight 238 lb 6 oz 236 lb 1 oz 233 lb 7 oz 231 lb 1 oz Microbiology Reports for the Last 24 Hours: Microbiology 03/26/18 09:25 Sputum - Expectorated Sputum Gram Stain - Final 03/26/18 09:25 Sputum - Expectorated Sputum Sputum Culture - Final Yeast - *Routine Respiratory Exam Present: CTA bilaterally. Absent: accessory muscle use, rales, rhonchi, wheezes - *Routine Cardiovascular Exam Present: RRR. Absent: murmur, gallop, rubs - *Routine Extremities Exam Absent: edema, calf tenderness - *Routine Neurological Exam Present: alert, oriented X3, moving all extremities Assessment and Plan (1) Congestive heart failure Current visit: Yes Status: Acute Category: Medical Code(s): I50.9 - Heart failure, unspecified (2) Dilated cardiomyopathy Current visit: Yes Status: Acute Category: Medical Code(s): I42.0 - Dilated cardiomyopathy (3) ARDS (adult respiratory distress syndrome) Current visit: Yes Status: Acute Category: Medical Code(s): J80 - Acute respiratory distress syndrome (4) Acute respiratory failure with hypoxia Current visit: Yes Status: Acute Category: Medical Code(s): J96.01 - Acute respiratory failure with hypoxia (5) Bilateral lower extremity edema Current visit: Yes Status: Acute Category: Medical Code(s): R60.0 - Localized edema (6) Bilateral pneumonia Current visit: Yes Status: Acute Qualifiers: Pneumonia type: due to unspecified organism Lung location: upper lobe of lung Qualified Code(s): J18.1 - Lobar pneumonia, unspecified organism Category: Medical Code(s): J18.9 - Pneumonia, unspecified organism - Assessment and plan all Dx Assessment and Plan for all problems:: 1. Okay for discharge home from cardiology standpoint. 2. Continue Coreg 6.25 mg twice daily, lisinopril 10 mg daily, digoxin 0.125 mg daily, atorvastatin 40 mg daily, spironolactone 25 mg daily and would switch Lasix to 40 mg p.o. twice daily along with potassium supplementation of 20 mEq daily. 3. Will obtain a BMP later this week at follow-up along with a limited echocardiogram to reassess LVEF. 4. Patient is to be off work until follow-up later this week at which time decision for return to work geovany be made.
--- NOTE | 2018-03-30 10:36 | Discharge Summary ---
General - General Admission date:: 03/26/18 Discharge date: 03/30/18 HPI HPI: Ms. Fonseca is a 37-year-old female who was just recently discharged from [facility] after a second admission for pneumonia. She states she went back to work on Friday and had an episode of SOA. Her mother gave her one of her albuterol nebs and this helped. This am at 4:30 she got up to go to the bathroom and became SOA. She took another neb but this did not help so she came to the ER. She states her oxygen was in the 70's by the time she got there. A CXR showed bilateral pneumonia and cardiomegaly. A CTA showed bilateral pneumonia and pleural effusions. She has had LE edema for the past month as well. She will be admitted. Hospital Course Hospital Course: Patient is a 38 year old female that was admitted to our hospital after having shortness of breath and hypoxic episode with oxygen saturation of 79% in ED upon admission. Patient was started on NC, which did not improved her breathing. Her STAT Xray showed evidence of ARDS and she was started on lasix IV. She was also started on Bipap for better oxygenation. Her oxygen improved to 96% on Bipap. Over the course of her stay, she was slowed weaned off the Bipap, where she tolerated RA. She also recieved broad spectrum abx during her stay here with levaquin and vancomycin as she was septic upon admission with end organ damage 2/2 bilateral pneumonia that is secondary to yeast. She was also started on diflucan for 14 days and sputum yeast was sent out for isolate. Results will be back in 2 weeks. Her echo showed HFrEF with EF of 25%, she was medically managed at this time with appropriate medications. On the day of discharge, patient was off of IV lasix and Bipap. She was able to ambulate on RA and did not need any oxygen at this time. She is to follow-up with me in 1 week. Objective Vital signs: Temp Pulse Resp BP Pulse Ox 97.4 F L 87 18 96/58 L 94 L 03/30/18 08:00 03/30/18 08:41 03/30/18 08:00 03/30/18 08:00 03/30/18 08:00 no acute distress - *Routine HEENT Exam Head: Present: normocephalic Eye: Present: EOMI ENT: Present: mucous membranes moist - *Routine Neck Exam Present: supple, full ROM - Routine Chest/Breast/Axilla Exam Chest wall: Absent: tenderness - *Routine Respiratory Exam Present: CTA bilaterally. Absent: accessory muscle use - *Routine Cardiovascular Exam Present: RRR - *Routine Abdominal Exam Present: soft, normoactive bowel sounds - *Routine Extremities Exam Absent: cyanosis, edema - *Routine Skin Exam Present: intact - *Routine Neurological Exam Present: alert, oriented X3 Results Labs on day of discharge: Labs from last 24 hours 03/30/18 05:40 Sodium 139 Potassium 4.8 Chloride 105 Carbon Dioxide 26 Anion Gap 12.8 BUN 21 H Creatinine 1.21 H Estimated Creat Clear 103 Estimated GFR 49 L Est GFR ( Amer) 60 Glucose 100 Calcium 9.0 Preliminary micro results at discharge 03/26/18 05:20 Blood Culture - Preliminary Blood NO GROWTH AFTER 48 HOURS 03/26/18 05:20 Blood Culture - Preliminary Blood NO GROWTH AFTER 48 HOURS DS: Diagnosis - Discharge Diagnosis (1) Sepsis Start date: 03/20/18 Status: Acute Problem details: Sepsis with End-organ damage (ARDS) 2/2 bialteral pneumonia 2/2 yeast (2) HFrEF (heart failure with reduced ejection fraction) Status: Acute (3) Dilated cardiomyopathy Status: Acute (4) ARDS (adult respiratory distress syndrome) Status: Acute (5) Acute HFrEF (heart failure with reduced ejection fraction) Status: Acute (6) Acute respiratory failure with hypoxia Status: Acute (7) Bilateral lower extremity edema Status: Acute (8) Bilateral pneumonia Status: Acute Discharge Plan - Patient Discharge Instructions ACTIVITY: Continue current activity DIET: continue same diet Patient Instructions: Pneumonia-Adult, Pleural Effusion, Heart Failure - Follow up Plan Follow up with: Amira Berkowitz MD [Primary Care Provider] - Disposition: Home, Self-[facility] Medications: Home Medications Medication Instructions Recorded Confirmed Type Amoxicillin/Potassium Clav 1 tab PO Q12H 03/26/18 03/26/18 History [Augmentin 875-125 Tablet] Prescriptions/Medication Reconciliation: New Carvedilol [Coreg 6.25mg Tablet] 6.25 mg PO BID 30 Days tab Furosemide [Lasix 40mg tablet] 40 mg PO BIDL 30 Days tab Lisinopril [Zestril 10mg Tab] 10 mg PO DAILY 30 Days tab Spironolactone [Aldactone 25mg Tab] 25 mg PO DAILY 30 Days tab Atorvastatin Calcium [Lipitor 40mg Tablet] 40 mg PO HS 30 Days tab Digoxin [Digoxin 0.125mg Tablet] 125 mcg PO DAILY 30 Days tab Fluconazole [Diflucan 200mg tablet] 400 mg PO DAILY 14 Days #28 tablet Continue Amoxicillin/Potassium Clav [Augmentin 875-125 Tablet] 1 tab PO Q12H
== END 2018-03-30 10:58 | disposition home or self-care (01) ==
LOC: ER 05:10 → 2ND 07:38
PROVIDERS: ADMIT Emergency Medicine; ATTEND Emergency Medicine

== ENCOUNTER 2020-11-09 19:21 | Emergency (ER) | payer SELFPAY ==
[2020-11-09 19:24] VITALS: BP 170/110; PULSE 111; RESP 20; TEMP 36.7; O2SAT 97; BMI 42.5
--- NOTE | 2020-11-09 19:36 | HMH.EDGENADL ---
ED Disposition Clinical Impression: Sciatic leg pain Disposition: Home, Self-Care Condition on Discharge: Good Prescriptions: Ketorolac Tromethamine [Toradol 10mg tablet] 10 mg PO Q6HP PRN 5 Days #20 tab MDD 40mg/day PRN Reason: Mild Pain Transmission Status: Pending to [facility] Lidocaine [Lidocaine Pain Relief] 1 each TP DAILY PRN 7 Days #7 adh..patch PRN Reason: Mild To Moderate Pain Transmission Status: Pending to [facility] methocarbamoL [Methocarbamol 500mg Tablet] 500 mg PO BID 10 Days #20 tab Transmission Status: Pending to [facility] Referrals: Wero Gleason MD [Primary Care Provider] - - Critical Care Critical Care Time: No Attestation: On 11/09/20, the high probability of a clinically significant, sudden or life threatening deterioration of the following system(s) required my full and direct attention, intervention and personal management. The time I documented below is in addition to time spent performing reported procedures but includes the following listed in this critical care notation. Medical Decision Making - Medical Records Medical records reviewed: Yes: I reviewed the patient's medical records. - Nikita Inquiry Pt receiving controlled substance: No Vital Signs: 11/09/20 19:24 Temperature 98.1 F Temperature Source Oral Pulse Rate [Left Radial] 111 H Respiratory Rate 20 Blood Pressure [Left Arm] 170/110 H Blood Pressure Mean [Left Arm] 130 Blood Pressure Source [Left Arm] Automatic Cuff Blood Pressure Position [Left Arm] Sitting 02 Sat by Pulse Oximetry 97 Oxygen Delivery Method Room Air Orders (Tests/Meds): ED MEDICATIONS Discontinued Medications Generic Name Dose Route Start Last Admin Trade Name Freq PRN Reason Stop Dose Admin Ketorolac Tromethamine 60 mg 11/09/20 19:30 11/09/20 19:37 Ketorolac 60mg/2ml Vial IM 11/09/20 19:31 60 mg ONCE ONE Administration Lidocaine 1 each 11/09/20 19:30 11/09/20 19:37 Lidocaine 5% Transdermal Patch TP 11/09/20 19:31 1 each ONCE ONE Administration Methocarbamol 500 mg 11/09/20 21:00 Methocarbamol 500mg Tablet PO 12/09/20 20:59 BID RICHARD Methocarbamol 500 mg 11/09/20 19:56 11/09/20 19:57 Methocarbamol 500mg Tablet PO 11/09/20 19:57 500 mg ONCE ONE Administration Medical Decision Narrative: 40-year-old female presents with left lower back pain and associated static. She is in no acute distress nontoxic-appearing however does have pain going down her left leg. She does not have red flags for cauda equina syndrome, traumatic injury, metastasis, AAA, infectious etiology or any other emergent concerns. Plan to treat symptomatically and discharged home with outpatient referral and return precautions General Adult HPI - General Stated complaint: lower back pain Time Seen by Provider: 11/09/20 19:25 - History of Present Illness HPI narrative: 40-year-old female with acute onset left lower back pain radiating to her left leg. 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 She has no fever no chills no IV drug use history. No prior episodes of severe back pain. No numbness weakness or tingling in legs no urinary or bowel incontinence or groin numbness. No direct trauma to her back. Radiation: back Severity: mild Consistency: intermittent Exacerbating factors: movement - Related Data Home Medications Medication Instructions Recorded Confirmed Furosemide [Lasix 40mg tab] 40 mg PO BID 07/28/19 07/28/19 carvediloL [Carvedilol 25mg Tab] 25 mg PO BID 07/28/19 07/28/19 lisinopriL [Lisinopril 2.5mg Tab] 2.5 mg PO DAILY 07/28/19 07/28/19 Previous Rx's Medication Instructions Recorded Azithromycin [Z-Sudhakar 250mg Tab*] 250 mg PO UD DOSE PK #6 tab 07/28/19 Furosemide [Lasix 20mg tab] 20 mg PO DAILY 30 Days #30 tab 07/28/19 Ipratropium/Albuterol Sulfate 3 ml IH
[2020-11-09 20:12] VITALS: BP 162/98; PULSE 96; RESP 18; TEMP 36.7; O2SAT 97
== END 2020-11-09 20:14 | disposition home or self-care (01) ==
PROVIDERS: Emergency Provider Emergency Medicine; PCP Family Medicine
DX: M54.32 Sciatica, left side (principal); I10 Essential (primary) hypertension
CPT/HCPCS: 96372; 99281

== ENCOUNTER 2021-05-17 15:54 | Emergency (ER) | payer SELFPAY ==
[2021-05-17 15:55] VITALS: BP 142/85; PULSE 88; RESP 16; TEMP 36.9; O2SAT 98; BMI 35.2
--- NOTE | 2021-05-17 16:33 | XR_ITS ---
PROCEDURE INFORMATION: Exam: XR Right Knee Exam date and time: 05/17/2021 4:33 PM Age: 41 years old Clinical indication: Pain; Knee; Right; Additional info: Right anterior pain TECHNIQUE: Imaging protocol: XR Right knee. Views: 3 views. COMPARISON: US CA venous doppler LE BI 03/26/2018 7:06 AM FINDINGS: Bones/joints: No fracture. No malalignment. Tricompartmental degenerative changes are seen including loss of joint space and osteophytosis. Findings appear worst in the medial compartment. Soft tissues: Normal. IMPRESSION: [id number] tricompartmental degenerative arthritis
--- NOTE | 2021-05-17 17:30 | HMH.EDGENADL ---
ED Disposition Clinical Impression: Osteoarthritis of right knee Qualifiers: Osteoarthritis type: unspecified Qualified Code(s): M17.11 - Unilateral primary osteoarthritis, right knee Right knee pain Qualifiers: Chronicity: acute Qualified Code(s): M25.561 - Pain in right knee Disposition: Home, Self-Care Condition on Discharge: Fair Instructions: DI for Osteoarthritis, DI for Knee Pain, How to Use a Knee Immobilizer Additional Instructions: Ibuprofen for pain while at work as prescribed. [place] can be used for pain at home, to sleep. Follow-up with orthopedics, Dr. Daly, call tomorrow to make appointment. Use knee immobilizer as needed. Additional instructions for CONTROLLED SUBSTANCES: You have been prescribed a medication that is a controlled substance. Controlled substances include pain medications known as opiates and sedative nerve medications known as benzodiazepines. Tramadol, fioricet, and gabapentin are also controlled substances. Some common opiates include: Codeine (such as Tylenol #3) Hydrocodone (Vicodin, Lortab, Lorcet, [place]) Oxycodone (Percocet, Percodan, Oxycodone, Oxy IR) Some common benzodiazepines include: Diazepam (Valium) Lorazepam (Ativan) Alprazolam (Xanax) Clonazepam (Klonopin) Oxazepam (Serax) All of these controlled substances are highly addictive and frequently abused. Misuse can and frequently does lead to addiction as well as overdose and . Medication should be stored in a locked cabinet or other secure storage unit. Do not store the medication in a motor vehicle. Short term supplies, 3 days or less, are prescribed because of the highly addictive nature of the medication. Any of the controlled substance medication NOT taken should be disposed of properly and NOT SAVED. The recommended method of disposing of unused medications is: Place the medicines in a sealable plastic bag. If the medicine is a solid, crush it or add water to dissolve it. Add something undesirable (cat litter, coffee grounds, etc.) Dispose of sealed bag in household trash Do not flush or pour unused medicines down a sink or drain. Controlled substances should not be shared, given away or sold. Because of the addictive nature and frequent abuse, these medications are sometimes stolen. These medications should be kept in a safe place where they cannot be stolen. Do not keep them in your car or purse. Lost or stolen prescriptions for controlled substances WILL NOT BE REFILLED in this emergency department, regardless of whether a police report was filed. Prescriptions: Hydrocod/Acet 5/325 mg [[place] 5/325mg tablet] 1 tab PO Q6HP PRN #10 tab PRN Reason: Pain Transmission Status: Received by [facility] Ibuprofen [Ibuprofen 800mg Tablet] 800 mg PO Q8HP PRN #15 tab PRN Reason: Moderate Pain Transmission Status: Received by [facility] Referrals: Wero Gleason MD [Primary Care Provider] - Forms: Work/School Release - Critical Care Critical Care Time: No Attestation: On 05/17/21, the high probability of a clinically significant, sudden or life threatening deterioration of the following system(s) required my full and direct attention, intervention and personal management. The time I documented below is in addition to time spent performing reported procedures but includes the following listed in this critical care notation. Medical Decision Making - Nikita Inquiry Pt receiving controlled substance: Yes Nikita was queried for this patient: Yes Risks and benefits of using a controlled substance: were discussed with pt by me Vital Signs: 05/17/21 15:55 05/17/21 19:08 Temperature 98.5 F 98.3 F Temperature Source Oral Oral Pulse Rate 70 Pulse Rate [Radial] 88 Respiratory Rate 16 16 Blood Pressure 130/70 Blood Pressure [Right Arm] 142/85 H Blood Pressure Mean [Right Arm] 104 Blood Pressure Source Automatic Cuff Blood Pressure Position Sitting
[2021-05-17 19:08] VITALS: BP 130/70; PULSE 70; RESP 16; TEMP 36.8; O2SAT 100
== END 2021-05-17 19:08 | disposition home or self-care (01) ==
PROVIDERS: Emergency Provider Emergency Medicine; PCP Family Medicine
DX: M17.11 Unilateral primary osteoarthritis, right knee (principal); M25.561 Pain in right knee; I10 Essential (primary) hypertension
CPT/HCPCS: 29505; 73562; 99283

== ENCOUNTER 2022-06-05 23:10 | Inpatient (IN) | payer SELFPAY ==
--- NOTE | 2022-06-05 23:13 | ECG_ITS ---
APPROVED REPORT Exam: Resting ECG HR:122 bpm ECG Measurements Heart Rate 122 AXES UT 116 P 65 QRSd 78 QRS 46 QT 337 T -28 QTc 410 Conclusion SINUS TACHYCARDIA WITH SHORT UT INTERVAL NONSPECIFIC ST & T-WAVE ABNORMALITY ABNORMAL ECG UNCONFIRMED REPORT Electronically signed by : Luiz Rivera MD 06/06/2022 08:07:25
[2022-06-06] VITALS (14 sets, daily range): BP systolic 112–178; BP diastolic 59–110; PULSE 75–122; RESP 14–24; TEMP 36.4–36.9; O2SAT 86–99; BMI 42.9; BMI 44.0
--- NOTE | 2022-06-06 00:35 | PC.NURSE ---
2330: RT at BS to obtain ABG 2337: RAD At BS for CXR 0037: Family at
[2022-06-06 00:43] LABS: ABG Base Excess -4.7 mmol/L (-2.4-2.3); ABG HCO3 18.9 mmhg (22.0-26.0); ABG Oxygen Saturation 91 % (90-100); ABG PCO2 26.6 mmhg (35.0-45.0); ABG PH 7.47 mmol/L (7.35-7.45); ABG TCO2 19.7 mmhg (23-27); Allen's Test Acceptable; Oxygen 2L %; Source Right Radial
--- NOTE | 2022-06-06 01:05 | XR_ITS ---
PROCEDURE INFORMATION: Exam: XR Chest Exam date and time: 06/05/2022 11:51 PM Age: 42 years old Clinical indication: Shortness of breath; Additional info: PT C/O SOA TECHNIQUE: Imaging protocol: Radiologic exam of the chest. Views: 1 view. COMPARISON: CR Chest 03/06/2022 10:46 PM FINDINGS: Lungs: Unremarkable. No consolidation. Pleural spaces: Unremarkable. No pleural effusion. No pneumothorax. Heart/Mediastinum: The heart size is not well assessed. Bones/joints: Unremarkable. IMPRESSION: No evidence of acute pulmonary process.
--- NOTE | 2022-06-06 01:05 | CT_ITS ---
PROCEDURE INFORMATION: Exam: CTA Chest With Contrast Exam date and time: 06/06/2022 1:24 AM Age: 42 years old Clinical indication: Dyspnea and shortness of breath; Additional info: SOA, dyspnea, low sat TECHNIQUE: Imaging protocol: Computed tomographic angiography of the chest with contrast. 3D rendering (Not supervised by radiologist): MIP and/or 3D reconstructed images were created by the technologist. Radiation optimization: All CT scans at this facility use at least one of these dose optimization techniques: automated exposure control; mA and/or kV adjustment per patient size (includes targeted exams where dose is matched to clinical indication); or iterative reconstruction. Contrast material: ISOVUE; Contrast volume: 70 ml; Contrast route: INTRAVENOUS (IV); COMPARISON: [facility] CT angio chest 03/26/2018 6:09 AM FINDINGS: Pulmonary arteries: Normal. No pulmonary emboli. Aorta: Unremarkable. No aortic aneurysm. No aortic dissection. Lungs: There is dense partial consolidation of the right upper lobe. More mild patchy consolidation and ground-glass infiltrate is present throughout the remaining portions of both lungs, most pronounced in the lower lobes. Mild interlobular septal thickening is present in both lungs, most pronounced in the lower lobes. Pleural spaces: Unremarkable. No pneumothorax. Minimal right pleural effusion. Heart: Mild cardiomegaly. No pericardial effusion. Lymph nodes: Unremarkable. No enlarged lymph nodes. Gallbladder and bile ducts: Multiple moderate-sized calcified gallstones noted in the gallbladder. Bones/joints: Mild multilevel degenerative disc changes noted throughout the thoracic spine Soft tissues: Unremarkable. IMPRESSION: 1. No evidence of pulmonary embolus 2. Patchy diffuse bilateral pulmonary infiltrates compatible with active pneumonitis, most severe in the right upper lobe. Minimal right pleural effusion 3. Cholelithiasis
[2022-06-06 01:06] LABS: HCG Qualitative, Serum Negative (Negative)
[2022-06-06 01:09] LABS: Procalcitonin 0.086 ng/mL (0.0-2.0); Troponin I 0.02 ng/ml (0.00-0.034)
[2022-06-06 01:10] LABS: Alanine Aminotransferase 85 U/L (12-78); Albumin Level 4.5 g/dl (3.5-5.0); Albumin/Globulin Ratio 1.3 (1.1-1.8); Alkaline Phosphatase 129 U/L (38-126); Anion Gap 14.7 mEq/L (5-15); Aspartate Amino Transferase 70 U/L (14-36); Bilirubin,Total 0.6 mg/dl (0.2-1.3); Blood Urea Nitrogen 17 mg/dl (7-17); Calcium 9.2 mg/dl (8.4-10.2); Carbon Dioxide 22 mmol/L (22.0-30.0); Chloride 109 mmol/L (98-107); Creatinine Clearance Estimated 56 mL/min (50-200); Estimated Glomerular Filt Rate 54 ml/min (>60); GFR (African American) 65 ML/MIN (>60); Globulin 3.5 g/dL (1.3-3.2); Glucose 127 mg/dl (74-100); Potassium 3.7 mmoL/L (3.5-5.1); Sodium 142 mmol/L (136-145); Thyroid Stimulating Hormone 1.81 uIU/mL (0.465-4.68)
[2022-06-06 01:16] LABS: Erythrocyte Sedimentation Rate 21 mm/hr (0-20)
[2022-06-06 01:17] LABS: Coronavirus 19, PCR Not Detected (NotDetected); Influenza A, PCR Not Detected (NotDetected); Influenza B, PCR Not Detected (NotDetected)
[2022-06-06 01:18] LABS: Hematocrit 44.1 % (37.0-47.0); Hemoglobin 13.9 g/dL (12.2-16.2); Mean Corpuscular Volume 89.7 fl (81-99); Red Blood Count 4.91 M/mm3 (4.20-5.40); White Blood Count 13.6 K/mm3 (4.8-10.8)
[2022-06-06 01:19] LABS: Basophils % 0.7 % (0.1-2.0); Eosinophils % 1.7 % (0.1-12.0); Lymphocytes % 14.5 % (10-50); Mean Corpuscular HGB Conc 31.6 g/dL (31.8-35.4); Mean Corpuscular Hemoglobin 28.3 pg (27.0-31.2); Mean Platelet Volume 8.7 fl (7.4-10.4); Monocytes % 3.6 % (1.7-9.3); Neutrophils % 78.7 % (37.0-80.0); Platelet Count 584 K/mm3 (142-424); Red Cell Distribution Width 15.4 % (11.5-17.5)
[2022-06-06 01:20] LABS: Basophils # 0.1 K/mm3 (0-0.2); Eosinophils # 0.2 K/mm3 (0.0-0.4); Monocytes # 0.5 K/mm3 (0.1-1.0); Neutrophils # 10.7 K/mm3 (1.8-7.8)
--- NOTE | 2022-06-06 01:20 | PC.NURSE ---
Pt gone to RAD
[2022-06-06 01:38] LABS: Microscopic, Urine URINE MICROSCOPIC (MICROSCOPIC)
--- NOTE | 2022-06-06 01:40 | PC.NURSE ---
Pt back from RAD
[2022-06-06 01:46] LABS: Appearance,Urine SL CLOUDY (Clear); Bilirubin,Urine Negative (Negative); Blood, Urine Negative (Negative); Color,Urine YELLOW (Yellow); Glucose,Urine (UA) Negative (Negative); Ketones,Urine Negative (Negative); Leukocyte Esterase,Urine Negative (Negative); Nitrate,Urine POSITIVE (Negative); Protein,Urine 1+ (Negative); Specific Gravity, Urine >= 1.030 (1.005-1.030); Urobilinogen,Urine 0.2 EU/dl (0.2)
--- NOTE | 2022-06-06 02:30 | PC.NURSE ---
Dr. Sue at
[2022-06-06 02:33] LABS: Bacteria,Urine 4+ /lpf; WBC,Urine Occasional #/hpf (0-3)
[2022-06-06 02:42] LABS: Amylase 48 U/L (30-110); Lipase 168 U/L (23-300)
[2022-06-06 02:56] LABS: C-Reactive Protein 20.5 mg/L (0-4); NT Pro Brain Natriuretic Pep. 2130 pg/mL (0-125)
[2022-06-06 02:59] LABS: Troponin I 0.04 ng/ml (0.00-0.034)
[2022-06-06 03:02] LABS: T4 (Thyroxine) 12.9 ug/dl (5.53-11.0)
--- NOTE | 2022-06-06 03:10 | HMH.EDSOB ---
Discharge Plan Disposition Patient Disposition: Admitted As Inpatient Chief Complaint: Shortness of Breath/Dyspnea Prescriptions Prescriptions: No Action No Known Home Medications Referrals Follow up/Referrals: Mario Sue MD [Primary Care Provider] - See instructions Discharge ED Provider: Mario Sue Resp/SOB HPI General Chief Complaint: Shortness of Breath/Dyspnea Stated Complaint: Chest Pain Time Seen by Provider: 06/06/22 02:00 Mode of Arrival: EMS Source of Information: Patient, Parent(s), EMS and Medical Record Limitations: No Limitations Description of Symptoms (Recalled from ER Triage Doc. by RN): Triage @ 7165. Pt c/o SOA and dsypnea. States last wk she had a virus but began to feel better, then started to feel bad again several days ago. 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 Her co-workers gave her a Lisinopril d/t her HR 130s and BP elevated. EMS placed pt on 2LPM NC d/t sat 88%. Pt denies any hx of copd or asthma. Pt further states she has been out of her BP & fluid pill d/t no insurance and needs to see her PCP. History of Present Illness progressive sob over the last week has been off meds over the last month - has hx of chf Complaint: shortness of breath and cough Onset (ago): day(s) Context: recent illness and medication noncompliance Severity: moderate Consistency/Duration: constant Known history of: congestive heart failure Associated symptoms: pain with inspiration and cough Treatment prior to arrival: oxygen Related Data Home oxygen amount: none Home Medications Medication Instructions Recorded Confirmed No Known Home Medications 06/06/22 06/06/22 Allergies Allergy/AdvReac Type Severity Reaction Status Date / Time No Known Allergies Allergy Verified 03/13/18 02:51 Well's Criteria PE Score Clinical signs/symptoms of DVT: No PE is #1 diagnosis or equally likely: Yes Heart rate is > 100: Yes Immobile at least 3 days, or surgery in past 4 wks: No Previously, obj. diagnosed PE or DVT: No Hemoptysis: No Malignancy w/Rx within 6mo, or palliative: No PE Score: 4 Risk of Pulmonary Embolism by score: >3 pts=Hi Risk (78%) [facility] Disclaimer: The information contained in this section may have been updated after the patient was seen, as this information can be updated by other users. 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 caffeine: Yes ROS Obtained: Yes All systems reviewed & no additional complaints except as documented Physical Exam General General appearance: alert and obese Head Head exam: normocephalic Eye Eye exam: Present PERRL and EOMI ENT ENT exam: Present mucous membranes moist Neck Neck exam: Present trachea midline Respiratory Respiratory exam: Present other (has bronchial bs bilat ); Absent respiratory distress Cardiovascular Cardiovascular exam: Present tachycardia, systolic murmur and +S4 Abdominal Exam Abdominal exam: Present soft Extremities Exam Extremities exam: Present edema; Absent joint swelling or calf tenderness Neurological Exam Neurological exam: Present alert, oriented X3 and CN II-XII intact; Absent motor sensory deficit Psychiatric Psychiatric exam: Present normal affect Skin Skin exam: Absent rash Medical Decision Making Medical Records Medical records reviewed: Yes I reviewed the patient's medical records. Nikita Inquiry Pt receiving controlled substance: No Vital Signs: 06/06/22 00:32 06/06/22 01:13 06/06/22 01:45 Temperature 98.1 F Temperature Source Oral Pulse Rate 103 H 105 H Pulse Rate [Right] 122 H Respiratory Rate 24 15 22 Blood Pressure 151/97 H Blood Pressure [Right Arm] 175/105 H Blood Pressure Mean [Right Arm] 128 Bloo
--- NOTE | 2022-06-06 03:11 | EXP.HP ---
History of Present Illness *Admission Date: 06/06/22 *Reason for visit:: Shortness of air *History of present illness: Ms. Fonseca is a 42-year-old female with a past medical history of dilated cardiomyopathy, HFrEF, Hyperlipidemia. She presents to [facility] due to shortness of air x 1 week. She denies cough, fever, body aches or chills. She reports that she has been without her prescription medications, Lisinopril, Coreg, Diuretic x 1 month. She is reporting orthopnea and paroxysmal nocturnal dyspnea and pedal edema. She denies wearing home oxygen. In the ER upon presentation, the patient's oxygen saturation was 86 on room air, Troponin was 0.02. BNP was elevated at 2130. EKG showed Sinus Tachycardia with a rate of [address] segment elevation or depression. Covid and Flu testing were negative. ABG showed a pO2 of 57. This was taken on 28% FiO2. CTA of the chest showed patchy diffuse bilateral pulmonary infiltrates compatible with acute Pneumonitis. Most severe in the right upper lobe. The patient will be admitted with initial impression: Acute Hypoxic Respiratory Failure, Acute Exacerbation of CHF. Cardiology will be consulted to see the patient. Last echo in system is from 2018. Echo will be ordered for the am. She was given diuretic in the ER. She will be covered empirically for Pneumonia. She will be continued on oxygen, titrated to keep oxygen saturation 92% or greater. She will be continued on Coreg for Hypertension and Tachycardia in the setting of history of HFrEF. The plan of care was discussed in length and detail with the patient at bedside prior to his admission. The patient verbalized understanding and agreement with the plan of care. [facility] Disclaimer: The information contained in this section may have been updated after the patient was seen, as this information can be updated by other users. 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 caffeine: Yes Review of Systems Review of Systems Review of systems:: pertinent systems reviewed and negative unless documented below Constitutional Constitutional: Reports system reviewed and no additional complaints, except as documented Eyes Eyes: Reports system reviewed and no additional complaints, except as documented ENT Ears, Nose, Mouth, and Throat: Reports system reviewed and no additional complaints, except as documented *Cardiovascular Cardiovascular: Reports dyspnea, Reports dyspnea on exertion and Reports edema Comments: Othopnea, Paroxysmal nocturnal dyspnea *Respiratory Respiratory: Reports dyspnea and Reports dyspnea on exertion *Gastrointestinal Gastrointestinal: Reports system reviewed and no additional complaints, except as documented *Genitourinary Genitourinary: Reports system reviewed and no additional complaints, except as documented *Musculoskeletal Musculoskeletal: Reports system reviewed and no additional complaints, except as documented Integumentary/Breasts Skin/Breast: Reports system reviewed and no additional complaints, except as documented *Neurologic Neurologic: Reports system reviewed and no additional complaints, except as documented Psychiatric Psychiatric: Reports system reviewed and no additional complaints, except as documented Endocrine Endocrine: Reports system reviewed and no additional complaints, except as documented Hematologic/Lymphatic Hematologic/Lymphatic: Reports system reviewed and no additional complaints, except as documented Allergic/Immunologic Allergic/Immunologic: Reports system re
[2022-06-06 03:19] LABS: Cholesterol 217 mg/dl (140-200); HDL Cholesterol 43 mg/dl (40-60); Triglycerides 211 mg/dl (30-150); VLDL Cholesterol 42 mg/dL (0-40)
[2022-06-06 03:30] LABS: Direct LDL Cholesterol 110.28 mg/dL (100-129)
--- NOTE | 2022-06-06 03:52 | PC.NURSE ---
PT ARRIIVED TO THE FLOOR VIA WHEELCHAIR AT THIS TIME
--- NOTE | 2022-06-06 04:46 | PC.NURSE ---
pt admitted with 20G Left AC, but when attempted to start antibiotic IV leaking, started new 20G right AC and removed left IV
--- NOTE | 2022-06-06 06:30 | CA_ITS ---
APPROVED REPORT EXAM: Comprehensive 2D, Doppler, and color-flow Echocardiogram Scaffold Setter: Varsha Zarate, SOLE, RVS Ht: 5 ft 4 in Wt: 250lbs BSA: 2.15 BP: 000/00 mmHg Indications: Dilated viral CM last ef 20-25%, Heart failure, CP, SOB, HLD, Obesity 2D Dimensions IVSd 1.14 cm LVEF (Visual) 37.70 % PWd 1.13 cm LA Volume 82.70 mL LVDd 6.24 cm LA Volume Index 38.50 mL/m2 (M/F) 16-34 LVDs 5.08 cm Aortic Root 2.60 cm Left Atrium 4.79 cm LVOT 1.71 cm (M/F) 1.5-2.5 M-Mode Dimensions LA Diam 4.63 cm (1.9-4.0) LVDd 6.59 cm (3.5-5.7) Ao Diam 3.00 cm (2.0-3.7) LVDs 5.65 cm (3.5-5.7) IVSd 1.26 cm (0.6-1.1) PWd 0.84 cm (0.6-1.1) EF (Teich) 29.60% EPSs 1.98 cm FS 14.30% EDV (Teich) 222.80 mL TAPSE 2.06 (<1.7) ESV (Teich) 156.80 mL LV Diastology E Decel Time 207.00 (160-240 msec) E/A Ratio 1.03 MED E' 5.70 (< 7 cm/sec) MED A' 14.50 cm/s E'/MED E' Ratio 17.93 (>14) LAT E' 7.80 (<10 cm/sec) LAT A' 8.90 cm/s E/LAT E' Ratio 13.10 (>14) Pulm Vein s 32.00 cm/sec Pulm Vein d 22.00 cm/sec Ar-A Duration 93.00 msec Aortic Valve LVOT Max 77.00 (70-110 cm/s) LVOT VTI 14.63 cm AoV Peak Felipe. 158.00 (50-130 cm/s) AO Peak GR. 9.90 mmHg AO Mean GR. 6.20 (<5 mmHg) AO VTI 30.94 (18-25 cm) KOFI (VTI) 1.09 (2.5-4.5 cm2) Mitral Valve MV A Velocity 100.00 (40-130 cm/s) E/A Ratio 1.03 MV Decel. Time 207.00 (160-240 ms) MV Mean Gr. 2.50 (<2mmHg) MV PHT 60.00 ms Pulmonary Valve PV Peak Velocity 88.00 (50-150 cm/s) MT End VMAX 158.00 cm/s Tricuspid Valve TR P. Velocity 245.00 cm/s RAP Estimate 10.00 mmHg RVSP 34.00 mmHg Left Ventricle Left atrium is mildly enlarged, left ventricle is mildly dilated, severely disrupt ventricular systolic function, estimated ejection fraction 25% with left ventricular global hypokinesis, diastolic parameters are inconclusive. Right Ventricle Right atrium and right ventricle are normal size and contractility. Aortic Valve Aortic valve is minimally thickened and fibrosed there is no aortic stenosis or aortic insufficiency. Mitral Valve Mitral valve is grossly normal, there is moderate mitral regurgitation. Tricuspid Valve Tricuspid valve grossly normal, there is mild tricuspid regurgitation, tricuspid regurgitation jet velocity is inadequate for calculation of the right ventricular systolic pressure. Pulmonic Valve Pulmonic valve is poorly visualized. Great Vessels Aortic root is normal size. Inferior vena cava is poorly visualized. Pericardium No significant pericardial effusion noted. Conclusion 1. Mildly enlarged left atrium, dilated left ventricle, severely reduced left ventricular systolic function, estimated ejection fraction 25% with no regional wall motion abnormality, left ventricle is globally hypokinetic, diastolic parameters are inconclusive. 2. Moderate mitral and mild tricuspid regurgitation. 3. No significant pericardial effusion noted. 4. Inferior vena cava is poorly visualized. Electronically signed by : Yemi Escobedo MD 06/07/2022 14:01:37
[2022-06-06 07:43] LABS: Troponin I 0.04 ng/ml (0.00-0.034)
[2022-06-06 07:48] LABS: Chol/HDL Ratio 4.7 (1-3.5); Cholesterol 239 mg/dl (140-200); HDL Cholesterol 51 mg/dl (40-60); Triglycerides 162 mg/dl (30-150); VLDL Cholesterol 32 mg/dL (0-40)
[2022-06-06 07:58] LABS: Direct LDL Cholesterol 125.93 mg/dL (100-129)
[2022-06-06 09:40] LABS: NT Pro Brain Natriuretic Pep. 2810 pg/mL (0-125)
--- NOTE | 2022-06-06 11:49 | EXP.CARD.CON ---
History of Present Illness History of Present Illness Consult date: 06/06/22 Requesting physician: Fang Gamble Consult reason: shortness of breath Chief complaint: Shortness of air Additional Medical History:: Significant past medical history History of HFrEF-recovered/nonischemic cardiomyopathy ARDS History of present illness: 42-year-old white female with above past medical history presented to emergency department last night with complaints of shortness of air x1 week. Patient reports she has been without her lisinopril, Coreg, diuretic x1 month due to insurance issues. Reports symptoms started 1 month ago but have been progressively worse the last week leading up to yesterday experiencing shortness of air with minimal activity. Patient also reports orthopnea. Denies lower extremity swelling, cough, chest pain. Upon presentation to ER patient's oxygen saturation was 86 on room air. ABG showed a PO2 of 57 on 28% FiO2. EKG shows sinus tachycardia with a rate of 122 with no acute ischemic changes noted. COVID and flu testing were negative. CT of chest showed patchy diffuse bilateral pulmonary infiltrates compatible with acute pneumonitis most severe in right upper lobe. Patient was restarted on home medication including diuretics and admitted for acute hypoxic respiratory failure and exacerbation of CHF. Patient had good urine output noted last night diuresing over 1400 mLs. On examination this morning patient reports she feels much better with decrease in shortness of air. Continues to deny chest pain. [facility] Disclaimer: The information contained in this section may have been updated after the patient was seen, as this information can be updated by other users. 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 caffeine: Yes Review of Systems Review of Systems Review of systems:: pertinent systems reviewed and negative unless documented below *Cardiovascular Comments: Shortness of air and orthopnea *Neurologic Neurologic: Reports system reviewed and no additional complaints, except as documented Exam Data for Last 24 hours Vital signs and Labs for Last 24 Hours: Temp Pulse Resp BP Pulse Ox 98.4 F 82 16 119/67 94 L 06/06/22 08:00 06/06/22 08:00 06/06/22 08:00 06/06/22 08:00 06/06/22 08:00 Laboratory Results - last 24 hr 06/06/22 00:00: ESR 21 H 06/06/22 00:00: Troponin I 0.02, C-Reactive Protein 20.5 H, Procalcitonin 0.086 06/06/22 00:00: Serum HCG, Qual Negative 06/06/22 00:00: SARS-CoV-2 (PCR) Not detected, Influenza A Untype (PCR) Not detected, Influenza Type B (PCR) Not detected 06/06/22 00:00: WBC 13.6 H, RBC 4.91, Hgb 13.9, Hct 44.1, MCV 89.7, MCH 28.3, MCHC 31.6 L, RDW 15.4, Plt Count 584 H, MPV 8.7, Neut % (Auto) 78.7, Lymph % (Auto) 14.5, [place] % (Auto) 3.6, Eos % (Auto) 1.7, Baso % (Auto) 0.7, Neut # (Auto) 10.7 H, Lymph # (Auto) 2.0, [place] # (Auto) 0.5, Eos # (Auto) 0.2, Baso # (Auto) 0.1 06/06/22 00:00: Sodium 142, Potassium 3.7, Chloride 109 H, Carbon Dioxide 22, Anion Gap 14.7, BUN 17, Creatinine 1.10 H, Estimated Creat Clear 56, Estimated GFR 54 L, Est GFR ( Amer) 65, Glucose 127 H, Calcium 9.2, Total Bilirubin 0.6, AST 70 H, ALT 85 H, Alkaline Phosphatase 129 H, Total Protein 8.0, Albumin 4.5, Globulin 3.5 H, Albumin/Globulin Ratio 1.3, TSH 1.81, Thyroxine (T4) 12.9 H 06/06/22 00:00: Amylase 48, Lipase 168 06/06/22 00:00: NT-Pro-B Natriuret
--- NOTE | 2022-06-06 12:21 | US_ITS ---
FINAL REPORT CLINICAL HISTORY: transaminitis FINDINGS: ULTRASOUND RIGHT UPPER QUADRANT Sonographic imaging of the right upper quadrant was obtained. The pancreas is partially obscured. There is diffuse fatty infiltration of the liver with no focal lesion identified. The gallbladder is stone filled with innumerable tiny stones without biliary ductal dilatation. There is no gallbladder wall thickening. The common duct is normal at 3 mm. Limited images of the right kidney are unremarkable. IMPRESSION: Diffuse fatty infiltrated liver. Stone filled gallbladder without biliary ductal dilatation. Reviewed, Interpreted and Dictated by Hamzah Sylvester MD Transcribed by Milka Dixon Authenticated and [facility]
--- NOTE | 2022-06-06 13:59 | DIET.NUTRFU ---
RD reviewed and provided handouts on low sodium/cardiac diet. Reviewed label reading and encouraged her to read labels of anything consumed. She reports she does a lot of snacking at work, works 10pm to 7am. Eats crackers and peanut butter and chips often. Patient is currently NPO, recommend cardiac diet when medically feasible to start oral diet
--- NOTE | 2022-06-06 16:35 | PC.NURSE ---
No acute changes noted this shift, has been weaned to 1LNC and tolerated well, alert and oriented x4, denies any cp or soa, lung sounds diminished in bl bases, HR reg, trace edema noted to ble, voids per BR without difficulty, echo completed this shift, bed in lowest position with call light in reach.
--- NOTE | 2022-06-06 18:58 | EXP.ACUTE.PN ---
Subjective *Date: 06/06/22 *Time: 18:58 Interval history: No concerns or complaints this morning Medical Exam Vital signs and Labs for Last 24 Hours: Vital Signs Temp Pulse Pulse Resp BP BP Pulse Ox 06/06/22 18:23 78 06/06/22 18:23 75 06/06/22 18:23 91 L 06/06/22 16:00 97.5 F L 81 14 112/60 98 06/06/22 16:00 95 06/06/22 12:00 98.2 F 80 18 120/59 L 94 L 06/06/22 13:18 83 06/06/22 13:18 81 06/06/22 13:18 93 L 06/06/22 08:00 94 L 06/06/22 08:00 98.4 F 82 16 119/67 94 L 06/06/22 03:52 98.1 F 103 H 18 167/108 H 95 06/06/22 03:43 98 F 95 H 18 166/106 H 06/06/22 03:01 95 H 17 166/106 H 95 06/06/22 02:31 116 H 21 178/110 H 97 06/06/22 02:00 103 H 18 160/102 H 98 06/06/22 01:45 105 H 22 97 06/06/22 01:13 103 H 15 151/97 H 97 06/06/22 00:32 98.1 F 122 H 24 175/105 H 86 L Intake and Output 06/06/22 06/06/22 06/06/22 07:59 15:59 23:59 Output Total 1400 / 1750 350 / 1750 Balance -1400 / -1750 -350 / -1750 Output: Output, Urine Amount 1400 / 1750 350 / 1750 Other: Number of Voids 2 Number of Unmeasured Voids 1 Weight 117.027 kg 117 kg Patient Weight 06/06/22 23:59 Weight 117 kg Laboratory Results - last 24 hr 06/06/22 00:00: ESR 21 H 06/06/22 00:00: Troponin I 0.02, C-Reactive Protein 20.5 H, Procalcitonin 0.086 06/06/22 00:00: Serum HCG, Qual Negative 06/06/22 00:00: SARS-CoV-2 (PCR) Not detected, Influenza A Untype (PCR) Not detected, Influenza Type B (PCR) Not detected 06/06/22 00:00: WBC 13.6 H, RBC 4.91, Hgb 13.9, Hct 44.1, MCV 89.7, MCH 28.3, MCHC 31.6 L, RDW 15.4, Plt Count 584 H, MPV 8.7, Neut % (Auto) 78.7, Lymph % (Auto) 14.5, [place] % (Auto) 3.6, Eos % (Auto) 1.7, Baso % (Auto) 0.7, Neut # (Auto) 10.7 H, Lymph # (Auto) 2.0, [place] # (Auto) 0.5, Eos # (Auto) 0.2, Baso # (Auto) 0.1 06/06/22 00:00: Sodium 142, Potassium 3.7, Chloride 109 H, Carbon Dioxide 22, Anion Gap 14.7, BUN 17, Creatinine 1.10 H, Estimated Creat Clear 56, Estimated GFR 54 L, Est GFR ( Amer) 65, Glucose 127 H, Calcium 9.2, Total Bilirubin 0.6, AST 70 H, ALT 85 H, Alkaline Phosphatase 129 H, Total Protein 8.0, Albumin 4.5, Globulin 3.5 H, Albumin/Globulin Ratio 1.3, TSH 1.81, Thyroxine (T4) 12.9 H 06/06/22 00:00: Amylase 48, Lipase 168 06/06/22 00:00: NT-Pro-B Natriuret Pep 2130 H 06/06/22 00:38: Specimen Source Right radial, O2 % 2l, ABG pH 7.47 H, ABG pCO2 26.6 L, ABG pO2 57.0 L, ABG HCO3 18.9 L, ABG Total CO2 19.7 L, ABG O2 Saturation 91, ABG Base Excess -4.7 L, Mac Test Acceptable 06/06/22 01:35: Urine Color Yellow, Urine Appearance Sl cloudy, Urine pH 6.0, Ur Specific [place] >= 1.030, Urine Protein 1+, Urine Glucose (UA) Negative, Urine Ketones Negative, Urine Blood Negative, Urine Nitrate Positive, Urine Bilirubin Negative, Urine Urobilinogen 0.2, Ur Leukocyte Esterase Negative, Urine WBC Occasional, Ur Squamous Epith Cells 3-5, Urine Bacteria 4+ 06/06/22 02:15: Troponin I 0.04 H 06/06/22 02:29: Triglycerides 211 H, Cholesterol 217 H, LDL Cholesterol Direct 110.28, VLDL Cholesterol 42 H, HDL Cholesterol 43, Cholesterol/HDL Ratio 5.0 H 06/06/22 05:51: Troponin I 0.04 H 06/06/22 05:51: Triglycerides 162 H, Cholesterol 239 H, LDL Cholesterol Direct 125.93, VLDL Cholesterol 32, HDL Cholesterol 51, Cholesterol/HDL Ratio 4.7 H 06/06/22 05:51: NT-Pro-B Natriuret Pep 2810 H I & O for Labs for Last 24 Hours: Intake & Output 06/03/22 06/04/22 06/05/22 06/06/22 23:59 23:59 23:59 23:59 Output Total 1750 / 1750 Balance -1750 / -1750 Weight 117 kg Head: Present atraumatic and normocephalic Neck: Present normal inspection Respiratory: Present accessory muscle use; Absent CTA bilaterally Cardiac: Present Reg Rate and Rhythm and S1/S2 GI: Present soft; Absent tenderness Rectal (female): Present deferred (female): Present deferred Skin: Present intact and dry
[2022-06-06 21:01] LABS: Amphetamine/Metha Screen,Urine Negative ng/ml (<1000)
[2022-06-06 21:02] LABS: Barbiturates Screen,Urine Negative ng/ml (<200); Benzodiazepines Screen,Urine Negative ng/ml (<200)
[2022-06-06 21:03] LABS: Cannabinoid Screen,Urine Negative ng/ml (<50)
[2022-06-06 21:04] LABS: Cocaine Screen,Urine Negative ng/ml (<300); Methadone Screen,Urine Negative ng/ml (<300)
[2022-06-06 21:05] LABS: Opiate Screen,Urine Positive ng/ml (<300)
[2022-06-06 21:06] LABS: Phencyclidine Screen,Urine Negative ng/ml (<25)
[2022-06-07] VITALS (7 sets, daily range): BP systolic 107–144; BP diastolic 50–82; PULSE 71–88; RESP 16–24; TEMP 36.6–36.8; O2SAT 92–97; BMI 43.3
--- NOTE | 2022-06-07 04:25 | PC.NURSE ---
PATIENT DENIES PAIN/SOA/DISCOMFORT. 02 AT 2LNC IN USE. 02 SATS DROP DOWN INTO THE 70s ON ROOM AIR WHEN ASLEEP WITH NO 02. MAY HAVE SLEEP APNEA. PLEASANT AND COOPERATIVE.
[2022-06-07 06:17] LABS: Basophils % 0.3 % (0.1-2.0); Eosinophils # 0.1 K/mm3 (0.0-0.4); Eosinophils % 0.5 % (0.1-12.0); Hematocrit 36.8 % (37.0-47.0); Hemoglobin 11.8 g/dL (12.2-16.2); Lymphocytes # 1.1 K/mm3 (0.7-4.5); Mean Corpuscular Hemoglobin 28.7 pg (27.0-31.2); Mean Corpuscular Volume 89.6 fl (81-99); Mean Platelet Volume 8.6 fl (7.4-10.4); Monocytes # 0.6 K/mm3 (0.1-1.0); Monocytes % 5.2 % (1.7-9.3); Neutrophils # 10.2 K/mm3 (1.8-7.8); Platelet Count 451 K/mm3 (142-424); Red Blood Count 4.11 M/mm3 (4.20-5.40); Red Cell Distribution Width 15.4 % (11.5-17.5)
[2022-06-07 06:23] LABS: MANUAL DIFFERENTIAL MANUAL DIFFERENTIAL (MANUAL DIFF)
[2022-06-07 06:31] LABS: Chloride 106 mmol/L (98-107)
[2022-06-07 06:32] LABS: Potassium 3.9 mmoL/L (3.5-5.1); Sodium 141 mmol/L (136-145)
[2022-06-07 06:34] LABS: Alanine Aminotransferase 76 U/L (12-78); Albumin Level 3.6 g/dl (3.5-5.0); Albumin/Globulin Ratio 1.4 (1.1-1.8); Alkaline Phosphatase 80 U/L (38-126); Anion Gap 10.9 mEq/L (5-15); Aspartate Amino Transferase 38 U/L (14-36); Bilirubin,Total 0.3 mg/dl (0.2-1.3); Blood Urea Nitrogen 21 mg/dl (7-17); Carbon Dioxide 28 mmol/L (22.0-30.0); Creatinine Clearance Estimated 52 mL/min (50-200); Estimated Glomerular Filt Rate 49 ml/min (>60); GFR (African American) 59 ML/MIN (>60); Globulin 2.6 g/dL (1.3-3.2); Total Protein,Serum 6.2 g/dl (6.3-8.2)
[2022-06-07 06:35] LABS: Calcium 8.5 mg/dl (8.4-10.2); Glucose 108 mg/dl (74-100)
[2022-06-07 07:53] LABS: Eosinophils % 2 % (0-3); Lymphocytes % 9 % (10-50); Monocytes % 4 % (2-9); Neutrophils % 85 % (42-76); Platelet Estimate Normal; RBC Morphology Normal; Total Cells Counted 100
--- NOTE | 2022-06-07 12:23 | PC.NURSE ---
per jorge, order buspar 5mg po tab now then once daily for anxiety.
--- NOTE | 2022-06-07 15:24 | EXP.DC.SUM ---
General Admission date:: 06/06/22 HPI HPI HPI: Ms. Fonseca is a 42-year-old female with a past medical history of dilated cardiomyopathy, HFrEF, Hyperlipidemia. She presents to [facility] due to shortness of air x 1 week. She denies cough, fever, body aches or chills. She reports that she has been without her prescription medications, Lisinopril, Coreg, Diuretic x 1 month. She is reporting orthopnea and paroxysmal nocturnal dyspnea and pedal edema. She denies wearing home oxygen. In the ER upon presentation, the patient's oxygen saturation was 86 on room air, Troponin was 0.02. BNP was elevated at 2130. EKG showed Sinus Tachycardia with a rate of [address] segment elevation or depression. Covid and Flu testing were negative. ABG showed a pO2 of 57. This was taken on 28% FiO2. CTA of the chest showed patchy diffuse bilateral pulmonary infiltrates compatible with acute Pneumonitis. Most severe in the right upper lobe. The patient will be admitted with initial impression: Acute Hypoxic Respiratory Failure, Acute Exacerbation of CHF. Cardiology will be consulted to see the patient. Last echo in system is from 2018. Echo will be ordered for the am. She was given diuretic in the ER. She will be covered empirically for Pneumonia. She will be continued on oxygen, titrated to keep oxygen saturation 92% or greater. She will be continued on Coreg for Hypertension and Tachycardia in the setting of history of HFrEF. The plan of care was discussed in length and detail with the patient at bedside prior to his admission. The patient verbalized understanding and agreement with the plan of care. Hospital Course Hospital Course Hospital Course: Patient was admitted for pneumonitis and acute systolic decompensated heart failure. Patient is given prednisone for pneumonitis and also received diuretics and GDMT for her heart failure. Patient had improvement of her respiratory status and was eventually weaned off of oxygen. Transthoracic echo showed ejection fraction 25% LV global hypokinesis moderate mitral and mild tricuspid regurgitation. Patient started on and continued with Coreg 12.5 twice daily, lisinopril 5 mg p.o. daily, Bumex 1 mg twice daily. LifeVest was ordered however patient unable to receive due to lack of insurance and unable to afford the device. Payment plan offered. Follow-up with cardiology clinic. Can consider outpatient cardiac MRI for nonischemic cardiomyopathy. Exam Data for Last 24 hours Vital signs and Labs for Last 24 Hours: Temp Pulse Resp BP Pulse Ox 97.9 F 74 16 110/65 92 L 06/07/22 12:00 06/07/22 12:00 06/07/22 12:00 06/07/22 12:00 06/07/22 12:00 Laboratory Results - last 24 hr 06/06/22 01:35: Urine Color Yellow, Urine Appearance Sl cloudy, Urine pH 6.0, Ur Specific [place] >= 1.030, Urine Protein 1+, Urine Glucose (UA) Negative, Urine Ketones Negative, Urine Blood Negative, Urine Nitrate Positive, Urine Bilirubin Negative, Urine Urobilinogen 0.2, Ur Leukocyte Esterase Negative, Urine WBC Occasional, Ur Squamous Epith Cells 3-5, Urine Bacteria 4+ 06/06/22 01:35: Urine Opiates Screen Positive H, Urine Methadone Screen Negative, Ur Barbituates Screen Negative, Ur Phencyclidine Scrn Negative, Ur Amphetamines Screen Negative, U Benzodiazepines Scrn Negative, Urine Cocaine Screen Negative, U Marijuana (THC) Screen Negative 06/07/22 05:50: WBC 12.0 H, RBC 4.11 L, Hgb 11.8 L, Hct 36.8 L, MCV 89.6, MCH 28.7, MCHC 32.0, RDW 15.4, Plt Count 451 H, MPV 8.6, Neut % (Auto) 85.0 H, Lymph % (Auto) 9.0 L, [place] % (Auto) 5.2, Eos % (Auto) 0.5, Baso % (Auto) 0.3, Neut # (Auto) 10.2 H, Lymph # (Auto) 1.1, [place] # (Auto) 0.6, Eos # (Auto) 0.1, Baso # (Auto) 0.0, Total Counted 100, Neutrophils % (Manual) 85 H, Lymphocytes % (Manual) 9 L, Monocytes % (Manual) 4, Eosinophils % (Manual) 2, Platelet Estimate Normal, RBC Morphology Normal 06/07/22 05:50: Sodium 141, Potassium 3.9, Chloride 106, Carbon Di
[2022-06-10 19:16] LABS: Legionella pneumophila Urinary Negative (Negative)
--- NOTE | 2022-06-11 14:20 | CARE MANAGER ---
Spoke with patient for post-discharge phone interview, patient has follow-up appointments and picked up medications. No problems noted.
[2022-06-12 20:09] LABS: Body Fluid Culture, Sterile Not indicated. (.); Organism ID Not indicated. (.); Specimen Source Urine (.); Streptococcus pneumoniae Ag Negative (Negative)
== END 2022-06-07 18:13 | disposition home or self-care (01) | DRG 193 ==
LOC: ER 06-06 02:44 → 2ND 06-06 03:20
PROVIDERS: Nurse Practitioner Family; Admitting Provider Student in an Organized Health Care Education/Training Program; Emergency Provider Emergency Medicine; PCP Emergency Medicine; Visit Provider Student in an Organized Health Care Education/Training Program
DX: J18.9 Pneumonia, unspecified organism (principal); I50.23 Acute on chronic systolic (congestive) heart failure; J96.01 Acute respiratory failure with hypoxia; N17.9 Acute kidney failure, unspecified; I42.0 Dilated cardiomyopathy; E78.5 Hyperlipidemia, unspecified; I07.1 Rheumatic tricuspid insufficiency; Z91.199 Patient's noncompliance with other medical treatment and regimen due to unspecified reason
CPT/HCPCS: 36415; 71045; 71275; 76705; 80053; 80061; 80305; 81001; 82150; 82803; 83690; 83880; 84145; 84436; 84443; 84484; 84703; 85007; 85025; 85651; 86140; 87070; 87086; 87088; 87186; 87205; 87899; 93005; 93306; 94640; 94761; 99285; C9803; J0456; J0696; J2405; Q9967; U0003; U0005

== ENCOUNTER → 2022-07-24 08:34 | Outpatient (CLI) | payer OTHER, SELFPAY ==
[2022-07-24 09:26] LABS: Chloride 106 mmol/L (98-107); Potassium 4.1 mmoL/L (3.5-5.1); Sodium 140 mmol/L (136-145)
[2022-07-24 09:29] LABS: Anion Gap 10.1 mEq/L (5-15); Blood Urea Nitrogen 18 mg/dl (7-17); Calcium 9.4 mg/dl (8.4-10.2); Carbon Dioxide 28 mmol/L (22.0-30.0); Estimated Glomerular Filt Rate 68 ml/min (>60); GFR (African American) 82 ML/MIN (>60); Glucose 95 mg/dl (74-100)
== END ==
LOC: LAB 08:36
PROVIDERS: PCP Emergency Medicine; Visit Provider Nurse Practitioner Family
DX: I10 Essential (primary) hypertension (principal)
CPT/HCPCS: 36415; 80048

== ENCOUNTER → 2022-09-04 10:36 | Outpatient (CLI) | payer OTHER, SELFPAY ==
[2022-09-04 11:16] LABS: Basophils % 0.4 % (0.1-2.0); Eosinophils # 0.2 K/mm3 (0.0-0.4); Eosinophils % 1.5 % (0.1-12.0); Hematocrit 40.2 % (37.0-47.0); Hemoglobin 12.8 g/dL (12.2-16.2); Lymphocytes # 1.5 K/mm3 (0.7-4.5); Lymphocytes % 14.1 % (10-50); Mean Corpuscular HGB Conc 31.9 g/dL (31.8-35.4); Mean Corpuscular Hemoglobin 29.3 pg (27.0-31.2); Mean Corpuscular Volume 91.8 fl (81-99); Mean Platelet Volume 8.5 fl (7.4-10.4); Monocytes # 0.6 K/mm3 (0.1-1.0); Monocytes % 5.4 % (1.7-9.3); Neutrophils # 8.4 K/mm3 (1.8-7.8); Neutrophils % 78.6 % (37.0-80.0); Platelet Count 364 K/mm3 (142-424); Red Blood Count 4.38 M/mm3 (4.20-5.40); Red Cell Distribution Width 16.8 % (11.5-17.5); White Blood Count 10.7 K/mm3 (4.8-10.8)
[2022-09-04 11:47] LABS: Chloride 104 mmol/L (98-107)
[2022-09-04 11:48] LABS: Potassium 3.6 mmoL/L (3.5-5.1); Sodium 138 mmol/L (136-145)
[2022-09-04 11:50] LABS: Alanine Aminotransferase 34 U/L (12-78); Albumin Level 4.3 g/dl (3.5-5.0); Alkaline Phosphatase 99 U/L (38-126); Anion Gap 10.6 mEq/L (5-15); Aspartate Amino Transferase 24 U/L (14-36); Bilirubin,Indirect 0.4 mg/dL (0.0-0.9); Bilirubin,Total 0.4 mg/dl (0.2-1.3); Bilirubin,Unconjugated 0.4 mg/dL (0.0-1.1); Blood Urea Nitrogen 18 mg/dl (7-17); Carbon Dioxide 27 mmol/L (22.0-30.0); Estimated Glomerular Filt Rate 68 ml/min (>60); GFR (African American) 82 ML/MIN (>60); Total Protein,Serum 6.7 g/dl (6.3-8.2)
[2022-09-04 11:51] LABS: Calcium 9.1 mg/dl (8.4-10.2); Glucose 97 mg/dl (74-100); HDL Cholesterol 50 mg/dl (40-60); Magnesium 2.1 mg/dl (1.6-2.3)
[2022-09-04 11:58] LABS: Chol/HDL Ratio 6.7 (1-3.5); Cholesterol 334 mg/dl (140-200); Triglycerides 431 mg/dl (30-150)
[2022-09-04 11:59] LABS: NT Pro Brain Natriuretic Pep. 168 pg/mL (0-125)
[2022-09-04 12:02] LABS: Direct LDL Cholesterol 162.88 mg/dL (100-129)
[2022-09-04 12:08] LABS: Free T4 (Free Thyroxine) 0.75 ng/dl (0.78-2.19)
[2022-09-04 12:20] LABS: Thyroid Stimulating Hormone 0.28 uIU/mL (0.465-4.68)
== END ==
PROVIDERS: Physician Assistant; PCP Emergency Medicine; Visit Provider Nurse Practitioner
DX: I50.22 Chronic systolic (congestive) heart failure (principal); I50.23 Acute on chronic systolic (congestive) heart failure; I42.0 Dilated cardiomyopathy; I42.8 Other cardiomyopathies; I11.0 Hypertensive heart disease with heart failure; E78.2 Mixed hyperlipidemia; E66.01 Morbid (severe) obesity due to excess calories; Z68.41 Body mass index [BMI] 40.0-44.9, adult
CPT/HCPCS: 36415; 80048; 80061; 80076; 83735; 83880; 84439; 84443; 85025

== ENCOUNTER 2022-09-09 04:17 | Emergency (ER) | payer OTHER, SELFPAY ==
[2022-09-09 04:30] VITALS: BP 159/97; PULSE 83; O2SAT 100
[2022-09-09 04:58] VITALS: BP 153/92; PULSE 90; RESP 18; TEMP 36.6; O2SAT 100; BMI 39.5
--- NOTE | 2022-09-09 05:06 | CT_ITS ---
PROCEDURE INFORMATION: Exam: CT Abdomen And Pelvis With Contrast Exam date and time: 09/09/2022 6:20 AM Age: 42 years old Clinical indication: Abdominal pain; Epigastric; Additional info: Abd pain TECHNIQUE: Imaging protocol: Computed tomography of the abdomen and pelvis with contrast. Radiation optimization: All CT scans at this facility use at least one of these dose optimization techniques: automated exposure control; mA and/or kV adjustment per patient size (includes targeted exams where dose is matched to clinical indication); or iterative reconstruction. Contrast material: ISOVUE; Contrast volume: 75 ml; Contrast route: IV; REPORTING DATA: Count of CT and Cardiac NM exams in prior 12 months: This patient has received [address] and 0 known cardiac nuclear medicine studies in the 12 months prior to the current study. COMPARISON: US ABDOMEN LIMITED 06/06/2022 1:40 PM FINDINGS: Lungs: No acute airspace or pleural disease. Liver: Fatty infiltration of the liver and 2.8 cm right lobe hemangioma. Gallbladder and bile ducts: Cholelithiasis and mild infiltration of pericholecystic fat. No biliary ductal dilatation. Pancreas: No pancreatic mass or ductal dilatation. Spleen: Splenic granuloma. Adrenal glands: Subtle left adrenal nodularity. Kidneys and ureters: Normal renal morphology. No hydronephrosis. Stomach and bowel: Diverticula, without pericolonic inflammation. Appendix: No acute appendicitis. Intraperitoneal space: No significant free fluid. Mild infiltration of mesenteric fat in the anterior abdominal wall midline at the level of the umbilicus. Vasculature: Normal caliber of the abdominal aorta. Lymph nodes: No pathologically enlarged lymph nodes. Urinary bladder: Normal bladder morphology. Reproductive: 2.2 cm high attenuation left ovarian cyst. Bones/joints: L5 spondylolysis. Mild degenerative change. Soft tissues: Umbilical hernia. Left gluteal muscle calcification. IMPRESSION: 1. Cholelithiasis and mild infiltration of pericholecystic fat. 2. 2.2 cm high attenuation left ovarian cyst. 3. Additional findings as described above.
--- NOTE | 2022-09-09 05:06 | XR_ITS ---
PROCEDURE INFORMATION: Exam: XR Chest Exam date and time: 09/09/2022 6:05 AM Age: 42 years old Clinical indication: Pain; Other: Epigastric; Additional info: Epigastric pain TECHNIQUE: Imaging protocol: Radiologic exam of the chest. Views: 2 views. COMPARISON: CR XR CHEST PORTABLE 06/05/2022 11:51 PM FINDINGS: Lungs: Mild interstitial prominence without acute airspace disease. Pleural spaces: Mild right pleural thickening without dependent pleural effusion. Heart/Mediastinum: Epicardial fat, without cardiomegaly. Bones/joints: Unremarkable. IMPRESSION: No acute airspace or pleural disease.
[2022-09-09 05:15] LABS: Microscopic, Urine URINE MICROSCOPIC (MICROSCOPIC)
[2022-09-09 05:19] LABS: Appearance,Urine CLOUDY (Clear); Bilirubin,Urine Negative (Negative); Blood, Urine Negative (Negative); Color,Urine YELLOW (Yellow); Glucose,Urine (UA) Negative (Negative); Ketones,Urine Negative (Negative); Leukocyte Esterase,Urine TRACE (Negative); Nitrate,Urine Negative (Negative); PH,Urine 6.5 (5.0-8.5); Protein,Urine Negative (Negative); Specific Gravity, Urine 1.025 (1.005-1.030); Urobilinogen,Urine 0.2 EU/dl (0.2)
--- NOTE | 2022-09-09 05:20 | ECG_ITS ---
APPROVED REPORT Exam: Resting ECG HR:61 bpm ECG Measurements Heart Rate 61 AXES CA 145 P 53 QRSd 105 QRS 30 QT 427 T 37 QTc 430 Conclusion SINUS RHYTHM WITH OCCASIONAL SUPRAVENTRICULAR PREMATURE COMPLEXES LOW QRS VOLTAGE IN PRECORDIAL LEADS [QRS DEFLECTION < 1.0 mV IN CHEST LEADS] NONSPECIFIC ST & T-WAVE ABNORMALITY BORDERLINE ECG UNCONFIRMED REPORT Electronically signed by : Luiz Rivera MD 09/09/2022 20:21:00
[2022-09-09 05:23] LABS: Urine Pregnancy, HCG Qual. Negative (Negative)
[2022-09-09 05:32] LABS: Bacteria,Urine 2+ /lpf; Squamous Epithelial Cell,Urine 50-100 #/hpf (0-5)
[2022-09-09 05:34] LABS: Alanine Aminotransferase 28 U/L (12-78); Albumin Level 4.2 g/dl (3.5-5.0); Alkaline Phosphatase 106 U/L (38-126); Amylase 66 U/L (30-110); Anion Gap 8.5 mEq/L (5-15); Aspartate Amino Transferase 51 U/L (14-36); Bilirubin,Direct 0.3 mg/dl (0.0-0.4); Bilirubin,Indirect 0.4 mg/dL (0.0-0.9); Bilirubin,Total 0.7 mg/dl (0.2-1.3); Bilirubin,Unconjugated 0.4 mg/dL (0.0-1.1); Blood Urea Nitrogen 22 mg/dl (7-17); Calcium 9.2 mg/dl (8.4-10.2); Carbon Dioxide 23 mmol/L (22.0-30.0); Chloride 108 mmol/L (98-107); Creatinine Clearance Estimated 140 mL/min (50-200); Estimated Glomerular Filt Rate 68 ml/min (>60); GFR (African American) 82 ML/MIN (>60); Glucose 116 mg/dl (74-100); Lipase 270 U/L (23-300); Magnesium 2.4 mg/dl (1.6-2.3); Potassium 3.5 mmoL/L (3.5-5.1); Sodium 136 mmol/L (136-145); Total Protein,Serum 6.8 g/dl (6.3-8.2)
[2022-09-09 05:39] LABS: C-Reactive Protein 2.3 mg/L (0-4)
[2022-09-09 05:44] LABS: Erythrocyte Sedimentation Rate 16 mm/hr (0-20)
[2022-09-09 05:47] LABS: Basophils % 0.2 % (0.1-2.0); Eosinophils # 0.1 K/mm3 (0.0-0.4); Eosinophils % 1.3 % (0.1-12.0); Hematocrit 40.2 % (37.0-47.0); Hemoglobin 12.7 g/dL (12.2-16.2); Lymphocytes # 1.4 K/mm3 (0.7-4.5); Lymphocytes % 13.8 % (10-50); Mean Corpuscular HGB Conc 31.6 g/dL (31.8-35.4); Mean Corpuscular Hemoglobin 29.4 pg (27.0-31.2); Mean Corpuscular Volume 93.1 fl (81-99); Mean Platelet Volume 8.2 fl (7.4-10.4); Monocytes # 0.6 K/mm3 (0.1-1.0); Monocytes % 5.4 % (1.7-9.3); Neutrophils # 8.3 K/mm3 (1.8-7.8); Neutrophils % 79.3 % (37.0-80.0); Platelet Count 346 K/mm3 (142-424); Red Blood Count 4.31 M/mm3 (4.20-5.40); Red Cell Distribution Width 16.5 % (11.5-17.5); White Blood Count 10.5 K/mm3 (4.8-10.8)
[2022-09-09 05:53] LABS: Procalcitonin 0.068 ng/mL (0.0-2.0)
--- NOTE | 2022-09-09 06:27 | HMH.EDABDPAI ---
Discharge Plan Disposition Patient Disposition: Home, Self-Care Chief Complaint: Abdominal Pain Prescriptions Prescriptions: No Action atorvastatin [Lipitor] 40 mg tablet 40 mg PO DAILY carvedilol 12.5 mg tablet 12.5 mg PO BID lisinopril 20 mg tablet 20 mg PO BID bumetanide 1 mg tablet 1 mg PO BIDL hydroxyzine pamoate [Vistaril] 25 mg capsule 25 mg PO TID escitalopram oxalate [Lexapro] 10 mg tablet 10 mg PO DAILY Referrals Follow up/Referrals: Mario Sue MD [Primary Care Provider] - See instructions Clinical Impressions Clinical Impression: Cholelithiasis Instructions Patient Instructions: DI for Gallstones Discharge ED Provider: Vikram (ED)Mario Abdominal Pain HPI General Chief Complaint: Abdominal Pain Stated Complaint: Upper abdominal pain with nausea Time Seen by Provider: 09/09/22 06:27 Mode of Arrival: Ambulatory Source of Information: Patient and Medical Record Limitations: No Limitations Description of Symptoms (Recalled from ER Triage Doc. by RN): Pt arrives via private vehicle. C/O mid epigastric pain for prior two hours. States that she was sleeping when it started. Also has nausea but denies vomiting or diarrhea. History of Present Illness HPI narrative: upper abd pain this am with nausea with hx of gallstones complaint: abdominal pain Onset (ago): hour(s) Consistency: intermittent Location: RUQ and epigastric Severity: moderate Related Data Home Medications Medication Instructions Recorded Confirmed atorvastatin 40 mg tablet (Lipitor) 40 mg PO DAILY High cholesterol 09/09/22 09/09/22 bumetanide 1 mg tablet 1 mg PO BIDL Heart failure 09/09/22 09/09/22 carvedilol 12.5 mg tablet 12.5 mg PO BID High blood pressure 09/09/22 09/09/22 escitalopram oxalate 10 mg tablet 10 mg PO DAILY anxiety 09/09/22 09/09/22 (Lexapro) hydroxyzine pamoate 25 mg capsule 25 mg PO TID Anxiety 09/09/22 09/09/22 (Vistaril) lisinopril 20 mg tablet 20 mg PO BID High blood pressure 09/09/22 09/09/22 Allergies Allergy/AdvReac Type Severity Reaction Status Date / Time No Known Allergies Allergy Verified 09/04/22 10:10 [facility] Disclaimer: The information contained in this section may have been updated after the patient was seen, as this information can be updated by other users. Medical History (Updated 09/09/22 @ 07:41 by Mario Sue (SOPHIA)MD) Acute HFrEF (heart failure with reduced ejection fraction) Anxiety ARDS (adult respiratory distress syndrome) Bilateral lower extremity edema Bilateral pleural effusion Bilateral pneumonia CHF (congestive heart failure) CHF (congestive heart failure) Cholelithiasis Chronic HFrEF (heart failure with reduced ejection fraction) Dilated cardiomyopathy Dilated cardiomyopathy HTN (hypertension) Hyperlipidemia Hyperlipidemia Influenza Nonischemic cardiomyopathy Osteoarthritis of right knee Sciatic leg pain Sepsis Family History Other Breast cancer Lung cancer Social History Smoking Status: Current every day smoker second hand exposure: No alcohol intake: never current occupational status: other Travel in the last 8 weeks: None household members: significant other and children housing: house 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
--- NOTE | 2022-09-09 06:40 | PC.NURSE ---
ER speaking with pt
[2022-09-09 07:00] VITALS: BP 133/76; PULSE 65; O2SAT 99
--- NOTE | 2022-09-09 07:28 | PC.NURSE ---
rounded on pt at this time. reports felling better and ready to go home. made aware
[2022-09-09 07:30] VITALS: BP 130/74; PULSE 64; O2SAT 99
--- NOTE | 2022-09-09 07:36 | PC.NURSE ---
DR PLATT SPEAKING WITH DR WINSLOW
[2022-09-09 07:41] VITALS: BP 122/87; PULSE 65; RESP 20; TEMP 36.7; O2SAT 98
--- NOTE | 2022-09-09 08:22 | PC.NURSE ---
called surgical suite for appt pt to be there at 1030 am
--- NOTE | 2022-09-09 08:25 | PC.NURSE ---
called pt gave her appointment time with dr Dacosta
== END 2022-09-09 07:45 | disposition home or self-care (01) ==
PROVIDERS: Emergency Provider Emergency Medicine; PCP Emergency Medicine
DX: K80.80 Other cholelithiasis without obstruction (principal); R10.10 Upper abdominal pain, unspecified; R11.0 Nausea; I49.3 Ventricular premature depolarization; F17.210 Nicotine dependence, cigarettes, uncomplicated
CPT/HCPCS: 71046; 74177; 80048; 80076; 81001; 81025; 82150; 83690; 83735; 84145; 85025; 85651; 86140; 87086; 93005; 96361; 96374; 96375; 99285; J0131; J2405; Q9967

== ENCOUNTER → 2022-09-10 08:14 | Outpatient (CLI) | payer OTHER, SELFPAY | LOC: RT 08:15 | PROVIDERS: PCP Emergency Medicine; Visit Provider Physician Assistant | DX: I50.9 Heart failure, unspecified (principal); I10 Essential (primary) hypertension | CPT/HCPCS: 93308 ==

== ENCOUNTER 2022-10-10 08:11 | Emergency (ER) | payer OTHER, SELFPAY ==
[2022-10-10 08:11] VITALS: BP 169/68; PULSE 66; RESP 18; TEMP 36.6; O2SAT 100; BMI 38.7
--- NOTE | 2022-10-10 08:19 | XR_ITS ---
FINAL REPORT CLINICAL HISTORY: soa COMPARISON: 07/28/2019 FINDINGS: SINGLE-VIEW CHEST The heart size is normal. The mediastinum is normal. The lungs are clear. There is no pneumothorax. IMPRESSION: No acute cardiopulmonary process. Reviewed, Interpreted and Dictated by Hamzah Sylvester MD Transcribed by Josefina Gale Authenticated and [facility]
--- NOTE | 2022-10-10 08:19 | US_ITS ---
FINAL REPORT CLINICAL HISTORY: RUQ pain COMPARISON: CT dated 09/09/2022 FINDINGS: RIGHT UPPER QUADRANT ULTRASOUND Sonographic images of the right upper quadrant were obtained. There is a hyperechoic mass in the posterior right liver measuring up to 4.4 cm, probably representing a hemangioma. Longer term imaging follow-up is recommended. There are numerous gallstones measuring slightly greater than 1 cm. There is moderate gallbladder wall thickening measuring 9 mm. There is no biliary ductal dilatation. There is no significant free fluid. Limited images of the right kidney are normal. IMPRESSION: Cholelithiasis with interval development of gallbladder wall thickening, cannot exclude acute cholecystitis. No evidence of biliary obstruction. Liver mass, favor hemangioma. Recommend longer term imaging follow-up in 6 months which may be done with ultrasound, CT, or MRI. Reviewed, Interpreted and Dictated by Hamzah Sylvester MD Transcribed by Josefina Gale Authenticated and [facility]
[2022-10-10 08:23] LABS: Microscopic, Urine URINE MICROSCOPIC (MICROSCOPIC)
[2022-10-10 08:25] LABS: Appearance,Urine CLEAR (Clear); Bilirubin,Urine Negative (Negative); Blood, Urine Negative (Negative); Color,Urine YELLOW (Yellow); Glucose,Urine (UA) Negative (Negative); Ketones,Urine Negative (Negative); Leukocyte Esterase,Urine Negative (Negative); Nitrate,Urine Negative (Negative); PH,Urine 5.5 (5.0-8.5); Protein,Urine Negative (Negative); Urobilinogen,Urine 0.2 EU/dl (0.2)
[2022-10-10 08:31] VITALS: BP 147/78; PULSE 62; RESP 20; O2SAT 100
--- NOTE | 2022-10-10 08:37 | HMH.EDGENADL ---
Discharge Plan Disposition Patient Disposition: Home, Self-Care Prescriptions Prescriptions: New ondansetron 4 mg tablet,disintegrating 4 mg PO Q8H PRN (Reason: Nausea) Qty: 15 0RF hydrocodone-acetaminophen 5-325 mg tablet 1 tab PO Q6H PRN (Reason: pain) Qty: 12 0RF No Action clonazepam [Klonopin] 0.5 mg tablet 0.5 mg PO BID Qty: 60 1RF escitalopram oxalate [Lexapro] 20 mg tablet 20 mg PO DAILY Qty: 30 2RF prednisone 20 mg tablet 20 mg PO BID 5 Days Qty: 10 0RF naproxen 500 mg tablet 500 mg PO BID Qty: 30 0RF bumetanide 1 mg tablet 1 mg PO BIDL Qty: 60 4RF lisinopril 20 mg tablet 20 mg PO BID Qty: 60 4RF carvedilol 12.5 mg tablet 12.5 mg PO BID Qty: 60 4RF atorvastatin [Lipitor] 40 mg tablet 40 mg PO DAILY Referrals Follow up/Referrals: Mario Sue MD [Primary Care Provider] - See instructions Activity Restrictions/Add. Instructions Additional Instructions/Restrictions: Return for fever vomiting pain or any other concerns within 8 hours otherwise follow-up with Dr. Dacosta for outpatient surgery Instructions Patient Instructions: DI for Acute Abdominal Pain Discharge ED Provider: Sam Mosher General Adult HPI General Chief complaint: Abdominal Pain Stated complaint: Lower abd pain nausea Time Seen by Provider: 10/10/22 08:15 History of Present Illness HPI narrative: 42-year-old female with history of cholelithiasis presents with right upper quadrant pain persistent for 1 day. She had episode as well as nausea. No fever no chills. No vomiting blood no bilious vomiting no diarrhea dysuria hematuria vaginal bleeding or radiation of the abdominal pain. She has attempted to get outpatient surgery with Dr. Dacosta however has been denied per report per insurance. Related Data Home Medications Medication Instructions Recorded Confirmed atorvastatin 40 mg tablet (Lipitor) 40 mg PO DAILY High cholesterol 09/09/22 09/26/22 Previous Rx's Medication Instructions Recorded clonazepam 0.5 mg tablet (Klonopin) 0.5 mg PO BID #60 tabs 09/09/22 escitalopram oxalate 20 mg tablet 20 mg PO DAILY #30 tabs 09/18/22 (Lexapro) naproxen 500 mg tablet 500 mg PO BID #30 tabs 09/18/22 prednisone 20 mg tablet 20 mg PO BID 5 days #10 tabs 09/18/22 bumetanide 1 mg tablet 1 mg PO BIDL Heart failure #60 tabs 09/27/22 carvedilol 12.5 mg tablet 12.5 mg PO BID High blood pressure 09/27/22 #60 tabs lisinopril 20 mg tablet 20 mg PO BID High blood pressure 09/27/22 #60 tabs hydrocodone 5 mg-acetaminophen 325 1 tab PO Q6H PRN pain #12 tabs 10/10/22 mg tablet ondansetron 4 mg disintegrating 4 mg PO Q8H PRN Nausea #15 tabs 10/10/22 tablet Allergies Allergy/AdvReac Type Severity Reaction Status Date / Time No Known Allergies Allergy Verified 09/26/22 10:44 [facility] Disclaimer: The information contained in this section may have been updated after the patient was seen, as this information can be updated by other users. Medical History Acute HFrEF (heart failure with reduced ejection fraction) Anxiety ARDS (adult respiratory distress syndrome) Bilateral lower extremity edema Bilateral pleural effusion Bilateral pneumonia CHF (congestive heart failure) CHF (congestive heart failure) Cholelithiasis Chronic HFrEF (heart failure with reduced ejection fraction) Dilated cardiomyopathy Dilated cardiomyopathy HTN (hypertension) Hyperlipidemia Hyperlipidemia Influenza Nonischemic cardiomyopathy Osteoarthritis of right knee Sciatic leg pain Sepsis Sepsis with End-organ damage (ARDS) 2/2 bialteral pneumonia 2/2 yeast Family History Other Breast cancer Lung cancer Social History Smoking Status: Never smoker second hand exposure: No alcohol intake: never current occ
[2022-10-10 08:49] LABS: Basophils % 0.4 % (0.1-2.0); Eosinophils # 0.1 K/mm3 (0.0-0.4); Eosinophils % 1.3 % (0.1-12.0); Hematocrit 38.3 % (37.0-47.0); Hemoglobin 12.9 g/dL (12.2-16.2); Lymphocytes # 1.5 K/mm3 (0.7-4.5); Lymphocytes % 14.1 % (10-50); Mean Corpuscular HGB Conc 33.6 g/dL (31.8-35.4); Mean Corpuscular Hemoglobin 30.9 pg (27.0-31.2); Mean Platelet Volume 8.4 fl (7.4-10.4); Monocytes # 0.4 K/mm3 (0.1-1.0); Monocytes % 4.2 % (1.7-9.3); Neutrophils # 8.5 K/mm3 (1.8-7.8); Platelet Count 330 K/mm3 (142-424); Red Blood Count 4.16 M/mm3 (4.20-5.40); Red Cell Distribution Width 15.4 % (11.5-17.5); White Blood Count 10.6 K/mm3 (4.8-10.8)
[2022-10-10 08:52] LABS: Alanine Aminotransferase 36 U/L (12-78); Albumin Level 4.4 g/dl (3.5-5.0); Albumin/Globulin Ratio 1.8 (1.1-1.8); Alkaline Phosphatase 91 U/L (38-126); Anion Gap 16.2 mEq/L (5-15); Aspartate Amino Transferase 30 U/L (14-36); Bilirubin,Total 0.4 mg/dl (0.2-1.3); Blood Urea Nitrogen 25 mg/dl (7-17); Calcium 9.1 mg/dl (8.4-10.2); Carbon Dioxide 30 mmol/L (22.0-30.0); Chloride 95 mmol/L (98-107); Estimated Glomerular Filt Rate 60 ml/min (>60); GFR (African American) 73 ML/MIN (>60); Globulin 2.5 g/dL (1.3-3.2); Glucose 104 mg/dl (74-100); HCG Qualitative, Serum Negative (Negative); Lipase 219 U/L (23-300); Potassium 3.2 mmoL/L (3.5-5.1); Sodium 138 mmol/L (136-145); Total Protein,Serum 6.9 g/dl (6.3-8.2)
[2022-10-10 08:53] LABS: WBC,Urine Occasional #/hpf (0-3)
[2022-10-10 08:54] LABS: Bacteria,Urine Trace /lpf; RBC,Urine Occasional #/hpf (0-3); Squamous Epithelial Cell,Urine Occasional #/hpf (0-5)
[2022-10-10 09:09] LABS: Troponin I < 0.01 ng/ml (0.00-0.034)
[2022-10-10 09:20] VITALS: BP 159/81; PULSE 86; RESP 20; O2SAT 98
--- NOTE | 2022-10-10 10:30 | PC.NURSE ---
pt calling a ride to come and get her
[2022-10-10 10:55] VITALS: BP 157/73; PULSE 72; RESP 18; TEMP 36.6; O2SAT 99
--- NOTE | 2022-10-10 10:55 | PC.NURSE ---
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
== END 2022-10-10 10:55 | disposition home or self-care (01) ==
PROVIDERS: Emergency Provider Emergency Medicine; PCP Emergency Medicine
DX: R10.11 Right upper quadrant pain (principal); R11.0 Nausea
CPT/HCPCS: 71045; 76705; 80053; 81001; 83690; 84484; 84703; 85025; 96361; 96374; 96375; 99285; J2405

== ENCOUNTER → 2022-11-08 23:11 | Outpatient (CLI) | payer SELFPAY ==
[2022-11-08 18:22] LABS: Amphetamine/Metha Screen,Urine Negative ng/ml (<1000)
[2022-11-08 18:23] LABS: Barbiturates Screen,Urine Negative ng/ml (<200)
[2022-11-08 18:24] LABS: Benzodiazepines Screen,Urine Positive ng/ml (<200); Cannabinoid Screen,Urine Negative ng/ml (<50)
[2022-11-08 18:25] LABS: Cocaine Screen,Urine Negative ng/ml (<300); Methadone Screen,Urine Negative ng/ml (<300)
[2022-11-08 18:26] LABS: Opiate Screen,Urine Positive ng/ml (<300)
[2022-11-08 18:27] LABS: Phencyclidine Screen,Urine Negative ng/ml (<25)
== END ==
PROVIDERS: PCP Emergency Medicine; Visit Provider Emergency Medicine
DX: Z79.899 Other long term (current) drug therapy (principal)
CPT/HCPCS: 80305

== ENCOUNTER → 2022-12-27 11:20 | Outpatient (CLI) | payer OTHER, SELFPAY ==
[2022-12-27 18:26] LABS: Amphetamine/Metha Screen,Urine Negative ng/ml (<1000)
[2022-12-27 18:27] LABS: Barbiturates Screen,Urine Negative ng/ml (<200); Cannabinoid Screen,Urine Negative ng/ml (<50)
[2022-12-27 18:28] LABS: Cocaine Screen,Urine Negative ng/ml (<300)
[2022-12-27 18:29] LABS: Benzodiazepines Screen,Urine Negative ng/ml (<200); Methadone Screen,Urine Negative ng/ml (<300)
[2022-12-27 18:30] LABS: Opiate Screen,Urine Positive ng/ml (<300); Phencyclidine Screen,Urine Negative ng/ml (<25)
== END ==
LOC: LAB.DROPOF 12-28 08:55
PROVIDERS: PCP Emergency Medicine; Visit Provider Emergency Medicine
DX: Z79.899 Other long term (current) drug therapy (principal)
CPT/HCPCS: 80305

== ENCOUNTER → 2023-01-10 08:51 | Outpatient (CLI) | payer OTHER, SELFPAY ==
--- NOTE | 2023-01-10 09:29 | XR_ITS ---
FINAL REPORT CLINICAL HISTORY: Cough gallbladder sx on friday COMPARISON: 10/10/2022 FINDINGS: Two views of the chest were obtained. The heart size and pulmonary vascularity are within normal limits. The mediastinum is normal. No acute pulmonary abnormality is identified. There is no pneumothorax. The bony thorax is intact. IMPRESSION: No active cardiopulmonary disease. Reviewed, Interpreted and Dictated by Jaylon Fernandez III, MD Transcribed by Josefina Gale Authenticated and [facility]
--- NOTE | 2023-01-10 09:38 | ECG_ITS ---
APPROVED REPORT Exam: Resting ECG HR:78 bpm ECG Measurements Heart Rate 78 AXES TX 160 P 42 QRSd 93 QRS -10 QT 369 T 31 QTc 403 Conclusion SINUS RHYTHM LOW QRS VOLTAGE IN PRECORDIAL LEADS with late r wave progression Isolated Q in III BORDERLINE ECG UNCONFIRMED REPORT Electronically signed by : Luiz Rivera MD 01/10/2023 17:17:58
[2023-01-10 09:56] LABS: Basophils % 0.3 % (0.1-2.0); Eosinophils # 0.2 K/mm3 (0.0-0.4); Eosinophils % 1.8 % (0.1-12.0); Hematocrit 36.1 % (37.0-47.0); Hemoglobin 11.5 g/dL (12.2-16.2); Lymphocytes # 1.3 K/mm3 (0.7-4.5); Lymphocytes % 15.1 % (10-50); Mean Corpuscular HGB Conc 31.7 g/dL (31.8-35.4); Mean Corpuscular Hemoglobin 28.8 pg (27.0-31.2); Mean Corpuscular Volume 90.8 fl (81-99); Mean Platelet Volume 8.4 fl (7.4-10.4); Monocytes # 0.4 K/mm3 (0.1-1.0); Monocytes % 4.7 % (1.7-9.3); Neutrophils # 6.9 K/mm3 (1.8-7.8); Neutrophils % 78.1 % (37.0-80.0); Platelet Count 366 K/mm3 (142-424); Red Blood Count 3.98 M/mm3 (4.20-5.40); Red Cell Distribution Width 14.9 % (11.5-17.5); White Blood Count 8.9 K/mm3 (4.8-10.8)
[2023-01-10 09:58] LABS: Chloride 102 mmol/L (98-107); Potassium 3.5 mmoL/L (3.5-5.1); Sodium 142 mmol/L (136-145)
[2023-01-10 10:01] LABS: Anion Gap 10.5 mEq/L (5-15); Blood Urea Nitrogen 18 mg/dl (7-17); Calcium 10.1 mg/dl (8.4-10.2); Carbon Dioxide 33 mmol/L (22.0-30.0); Estimated Glomerular Filt Rate 54 ml/min (>60); GFR (African American) 65 ML/MIN (>60); Glucose 106 mg/dl (74-100)
== END ==
PROVIDERS: PCP Emergency Medicine; Visit Provider Surgery
DX: Z01.818 Encounter for other preprocedural examination (principal); K80.20 Calculus of gallbladder without cholecystitis without obstruction
CPT/HCPCS: 36415; 71046; 80048; 85025; 93005

== ENCOUNTER 2023-01-13 07:09 | Day surgery (SDC) | payer OTHER, SELFPAY ==
[2023-01-09 10:37] VITALS: BMI 38.7
[2023-01-13] VITALS (14 sets, daily range): BP systolic 130–190; BP diastolic 60–123; PULSE 74–107; RESP 16–24; TEMP 36.8–43; O2SAT 92–98
[2023-01-13 07:45] LABS: Urine Pregnancy, HCG Qual. Negative (Negative)
--- NOTE | 2023-01-13 08:55 | EXP.GEN.HP ---
HPI HPI HPI: Patient presents for gallbladder surgery. She is a 42-year-old female whom I had seen in the office on 09/10/2022.? She is somewhat of a poor historian.? She has a history of significant chronic congestive heart failure, nonischemic dilated cardiomyopathy, hypertension, pneumonitis.? She has had several hospitalizations for pneumonitis and pneumonia with respiratory failure. She continues to smoke. She had presented to the emergency department on 06/06/2022 with respiratory complaints of shortness of air and dyspnea, hypoxia, congestive heart failure.? Blood work revealed AST of 38 which is slightly above normal range of 14-36.? She therefore underwent gallbladder ultrasound at that time which revealed diffuse fatty liver and stone filled gallbladder without ductal dilatation.? Patient was actually admitted for inpatient management at that time due to pneumonitis and acute systolic decompensated heart failure.? Transthoracic echocardiogram revealed an ejection fraction of merely 25% with global hypokinesis and moderate mitral and mild tricuspid regurgitation. Previous echocardiogram in 2018 revealed ejection fraction of 25%.? She was managed medically.? Consideration was being given for possible LifeVest due to her significant CHF and nonischemic cardiomyopathy.? Her gallbladder issues had seemingly been asymptomatic incidental finding.? However, on 09/09/2022 she presented to the emergency department with complaints of diffuse mid epigastric pain.? Laboratory studies were unremarkable.? CT scan was performed which revealed gallstones with mild infiltration of the pericholecystic fat.? She was scheduled for outpatient surgical evaluation. I had seen her as a consultation on 09/10/2022. It seems as though she had 1 episode of possible symptomatic gallstones. I had her undergo cardiac risk assessment. She had a transthoracic echocardiogram which revealed recovered ejection fraction of 49%. She was deemed an acceptable risk to proceed with surgery. Initially plan was made to forego surgery given her history and the fact that the gallstones may be asymptomatic. She had recurrent symptoms requiring ER evaluation on 10/10/2022. Therefore, once clarification was reached from cardiology arrangements were made for elective cholecystectomy. [facility] Disclaimer: The information contained in this section may have been updated after the patient was seen, as this information can be updated by other users. Medical History Acute HFrEF (heart failure with reduced ejection fraction) Anxiety ARDS (adult respiratory distress syndrome) Bilateral lower extremity edema Bilateral pleural effusion Bilateral pneumonia CHF (congestive heart failure) CHF (congestive heart failure) Cholelithiasis Chronic HFrEF (heart failure with reduced ejection fraction) Dilated cardiomyopathy Dilated cardiomyopathy HTN (hypertension) Hyperlipidemia Hyperlipidemia Influenza Nonischemic cardiomyopathy Osteoarthritis of right knee Sciatic leg pain Sepsis Surgical History No significant past surgical history Family History Other Breast cancer Lung cancer Social History Smoking Status: Never smoker second hand exposure: No alcohol intake: never current occupational status: employed Travel in the last 8 weeks: None household members: significant other and children housing: house 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
[2023-01-13 09:43] LABS: Alanine Aminotransferase 30 U/L (12-78); Albumin Level 3.9 g/dl (3.5-5.0); Alkaline Phosphatase 114 U/L (38-126); Aspartate Amino Transferase 31 U/L (14-36); Bilirubin,Indirect 0.3 mg/dL (0.0-0.9); Bilirubin,Total 0.3 mg/dl (0.2-1.3); Bilirubin,Unconjugated 0.5 mg/dL (0.0-1.1); Total Protein,Serum 6.9 g/dl (6.3-8.2)
--- NOTE | 2023-01-13 14:35 | EXP.OP.NOTE ---
Date of procedure: 01/13/23 Pre-op Diagnosis:: Symptomatic gallstones Post-op Diagnosis:: Same Procedure performed:: Laparoscopic cholecystectomy Surgeon:: Jaylon Dacosta MD INVENTORY ASSOCIATE:: Other Anesthesia: GETA Estimated blood loss (mL): 75 Operative findings:: She had a thickened gallbladder that was completely impactful and gallstones. It was quite elongated with neck of the gallbladder and slowly tapered to apparent cystic duct. Gallbladder neck was impacted full of gallstones. There some significant fatty infiltration around the tito hepatis and significant acute on chronic inflammatory response. There were several branching vessels around the gallbladder. She had mild steatosis of the liver. Operative note:: Patient was taken the operating room. She was given preoperative intravenous antibiotics. In the operating room she is placed in a supine position. General anesthesia was induced via endotracheal tube. Abdomen was prepped and draped in the standard surgical fashion. She was noted to have a tiny umbilical hernia defect. Subumbilical skin incision was made. Dissection was carried down through subcutaneous tissues. There is some herniated fatty tissue in minimal hernia sac. This was dissected free from the surrounding fascia and sent as specimen labeled hernia sac and contents. Arthur blunt trocar was inserted through the hernia defect and secured with Vicryl sutures. CO2 pneumoperitoneum was achieved to 15 mmHg. She was positioned in reverse Trendelenburg and left side down. A couple 5 mm trocars were inserted in the right upper quadrant. 10 mm trocar was inserted in the epigastrium. Liver was elevated and gallbladder was identified. There is thickening to the gallbladder. It was grasped retracted anteriorly and superiorly over the dome of the liver. There were omental adhesions securing a large portion of the gallbladder. Cystic artery was identified to the patient's left of the gallbladder. Prolonged dissection was carried out dissecting free the adhesions to the gallbladder. Dissection was carried out quite a generous distance to the neck of the gallbladder as the gallbladder was much more distended and elongated with neck that tapered to cystic duct. Neck of the gallbladder was impacted full of gallstones. There were several branching vessels to the gallbladder and there was some minor oozing which occasionally required use of Surgicel for temporary hemostasis which was then removed. Given the patient's severely altered anatomy and inflammatory response once the neck of the gallbladder was finally dissected free down to the apparent cystic duct plan was made for intraoperative cholangiogram. The cystic duct was clipped proximal to the gallbladder. Small incision was made in the right upper quadrant and taut cholangiocatheter introducer was inserted. Small incision was made in the cystic duct. Attempt was made to insert the cholangiocatheter. However the cystic duct appeared rather friable and therefore cholangiogram attempt was aborted. The cystic duct was multiply clipped and sharply divided. The gallbladder was dissected free from the liver in a retrograde fashion. Cystic artery was carefully coagulated with EKATERINA ultrasonic harmonic kareem. Gallbladder was placed within an Endo Catch retrieval device and removed from the peritoneal cavity via the umbilical trocar site which required some extension of the fascial incision for delivery. Gallbladder fossa was inspected for hemostasis which was assured. Irrigation of the gallbladder fossa and perihepatic space was carried out until clear. Trocars were then removed as CO2 pneumoperitoneum was evacuated. Fascia at the umbilicus was closed with multiple interrupted 0 Ethibond sutures. Local anesthetic was infiltrated. Skin incisions were closed with 4-0 Monocryl. Steri-Strips and clean dry sterile dressings were applied. The gallbladder was inspected at the completion of the proce
--- NOTE | 2023-01-13 15:11 | EXP.ANES.CKL ---
[facility] Disclaimer: The information contained in this section may have been updated after the patient was seen, as this information can be updated by other users. Medical History Acute HFrEF (heart failure with reduced ejection fraction) Anxiety ARDS (adult respiratory distress syndrome) Bilateral lower extremity edema Bilateral pleural effusion Bilateral pneumonia CHF (congestive heart failure) CHF (congestive heart failure) Cholelithiasis Chronic HFrEF (heart failure with reduced ejection fraction) Dilated cardiomyopathy Dilated cardiomyopathy HTN (hypertension) Hyperlipidemia Hyperlipidemia Influenza Nonischemic cardiomyopathy Osteoarthritis of right knee Sciatic leg pain Sepsis Surgical History No significant past surgical history Family History Other Breast cancer Lung cancer Social History Smoking Status: Never smoker second hand exposure: No alcohol intake: never substance use type: denies use current occupational status: employed Travel in the last 8 weeks: None household members: significant other and children housing: house 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 caffeine: Yes [facility] Anesthesia Checklist Patient Identification Patient Identification: Arm Band and Family Structural Data Admitted From: Home Planned Operative Procedure/s: Lap Iris Consent for Planned Operative Procedure(s) Verified: Yes Verified Documents: Surgical Consent and History and Physical NPO Status Verified Time NPO: 00:00 Additional verifications Patient : No Anesthesia Reactions: No Hx Blood Transfusions: No Blood Transfusion Reaction: No Cephalosporin Allergy: No Previous Colonoscopy: No Airway Assessment Mallampati Score:: Class II C-Spine Mobility Assessed: Yes TMJ Mobility Assessed: Yes Dentition: Good Dentition Neurological Assessment Level of Consciousness: Awake, Alert, Appropriate and Follows Commands Hx Seizures: No Numbness or tingling in extremities: No Anesthesia Plan Anesthesia Risk discussed: Yes ASA Class: II Anesthesia Type: General Preoperative Comments Pre-Operative Comments: Cardiomyopathy according to patient. On Lisinopril and Carvetel
--- NOTE | 2023-01-13 15:16 | P.PNANES_ITS ---
[facility] Anesthesia Record Part I Anesthesia Record I Intake, IV Amount: 1,700 Hydration: Adequate Estimated blood loss (mL): 75 Urine output (mL): 0 Blood Products used (#): none Blood Pressure: 130/102 SaO2: 92 Pulse Rate: 87 Airway Patency: Patent Respiratory Rate: 24 Temperature: 99.3 F Pain scale (0-10): 10 Nausea: No Vomiting: No Patient is:: Drowsy and Stable Stable to PACU at:: 14:10
--- NOTE | 2023-01-13 15:32 | P.PNANES_ITS ---
[facility] Anesthesia Record Part II Anesthesia Record Part II Discharge Time: 15:00 Destination: Surgical Day Care (OP Surgery) PACU nurse assessment reviewed?: Yes Patient Condition:: Good Anesthesia Complications:: None Swallowing reflex intact?: Yes Airway Patency: Patent Cyanosis?: No Blood Pressure: 155/103 SaO2: 94 Respiratory Rate: 18 Pulse Rate: 99 Temperature: 98.4 F Mental Status: Alert & Oriented Pain level:: 6 Nausea and/or vomitting:: None Intake, IV Amount: 0 Hydration: Adequate
== END 2023-01-13 16:04 | disposition home or self-care (01) ==
PROVIDERS: PCP Emergency Medicine; Visit Provider Surgery
PROC: 0FT44ZZ Resection of Gallbladder, Percutaneous Endoscopic Approach (ICD-10-PCS; CPT 47562; principal; 2023-01-13 09:15)
DX: K80.10 Calculus of gallbladder with chronic cholecystitis without obstruction (principal)
CPT/HCPCS: 47562; 80076; 81025; 96374; J2405

== ENCOUNTER → 2023-01-16 12:50 | Outpatient (CLI) | payer OTHER, SELFPAY ==
[2023-01-16 13:25] LABS: Alanine Aminotransferase 37 U/L (12-78); Alkaline Phosphatase 99 U/L (38-126); Aspartate Amino Transferase 30 U/L (14-36); Bilirubin,Indirect 0.3 mg/dL (0.0-0.9); Bilirubin,Total 0.3 mg/dl (0.2-1.3); Bilirubin,Unconjugated 0.5 mg/dL (0.0-1.1); Total Protein,Serum 6.7 g/dl (6.3-8.2)
== END ==
LOC: LAB 12:50
PROVIDERS: PCP Emergency Medicine; Visit Provider Surgery
DX: K80.20 Calculus of gallbladder without cholecystitis without obstruction (principal)
CPT/HCPCS: 36415; 80076

== ENCOUNTER → 2023-01-28 11:00 | Outpatient (CLI) | payer OTHER, SELFPAY ==
[2023-01-28 18:28] LABS: Amphetamine/Metha Screen,Urine Negative ng/ml (<1000)
[2023-01-28 18:29] LABS: Barbiturates Screen,Urine Negative ng/ml (<200)
[2023-01-28 18:30] LABS: Benzodiazepines Screen,Urine Negative ng/ml (<200); Cannabinoid Screen,Urine Negative ng/ml (<50)
[2023-01-28 18:35] LABS: Cocaine Screen,Urine Negative ng/ml (<300)
[2023-01-28 18:36] LABS: Methadone Screen,Urine Negative ng/ml (<300)
[2023-01-28 18:37] LABS: Opiate Screen,Urine Negative ng/ml (<300); Phencyclidine Screen,Urine Negative ng/ml (<25)
== END ==
LOC: LAB.DROPOF 01-29 08:47
PROVIDERS: PCP Emergency Medicine; Visit Provider Emergency Medicine
DX: Z79.899 Other long term (current) drug therapy (principal)
CPT/HCPCS: 80305

== ENCOUNTER → 2023-03-07 21:22 | Outpatient (CLI) | payer OTHER, SELFPAY ==
[2023-03-07 16:19] LABS: Amphetamine/Metha Screen,Urine Negative ng/ml (<1000)
[2023-03-07 16:20] LABS: Barbiturates Screen,Urine Negative ng/ml (<200)
[2023-03-07 16:22] LABS: Benzodiazepines Screen,Urine Negative ng/ml (<200); Cannabinoid Screen,Urine Negative ng/ml (<50)
[2023-03-07 16:23] LABS: Cocaine Screen,Urine Negative ng/ml (<300)
[2023-03-07 16:24] LABS: Methadone Screen,Urine Negative ng/ml (<300); Opiate Screen,Urine Positive ng/ml (<300)
[2023-03-07 16:25] LABS: Phencyclidine Screen,Urine Negative ng/ml (<25)
== END ==
PROVIDERS: PCP Emergency Medicine; Visit Provider Emergency Medicine
DX: M54.16 Radiculopathy, lumbar region (principal); M79.2 Neuralgia and neuritis, unspecified
CPT/HCPCS: 80305

== ENCOUNTER 2023-03-19 09:30 | Outpatient (RCR) | payer OTHER, SELFPAY ==
--- NOTE | 2023-03-05 09:06 | HMH.PTOPEV ---
PT Outpatient Evaluation Rehab PT Outpatient Evaluation Start: 03/05/23 08:57 Freq: Status: Active Protocol: Document 03/05/23 08:57 VICKY (Rec: 03/05/23 09:06 VICKY [id number]) E-signed By Derrek Krishnan, PT Outpatient Therapy Subjective History Subjective History Pt reports insidious onset bilateral LE pain beginning ~6 -7 months ago, with very minimal LBP reported. Pt reports hip area to feet level pain, and N&T in B/L feet oseas . 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 Chief Complaint Pain,Stiff,Paresthesia Symptom Type Ache,Throb,Dull,Numbness, Tingling Symptoms Relieved By Rest/Positioning,Ice Symptoms Aggravated By Standing,Walking,Lifting Prior Functional Limitations Lifting,Housework,Squatting Current Functional Limitations Lifting,Housework,Standing, Squatting,Walking Symptom Description Constant but Variable Level of pain today (0-10) 8 Pain scale - at its best (0-10) 7 Pain scale - at its worst (0-10) 8 Lumbopelvic Eval Posture Thoracic Spine Posture Standing Position Neutral Lumbar Spine Posture Standing Position Increased Lordosis Assistive device Assistive Devices None / NA Gait Observation General Gait Pattern Observation Antalgic Gait Palapation tenderness bilateral lumbar spinal tenderness Yes: 3/4 Lumbar/Sacral Palpation Findings Tenderness Lumbar/Sacral Palpation Overall Comment 3/4 L4-5 Accessory Movement L-spine Vertebrae Accessory Movements Central P/A [place] that Elicit Symptoms L4 bilateral L5 bilateral Range of Motion Lumbar Spine Active Flexion Range of 0-70 Motion (degrees) Lumbar Spine Active Extension Range of 0-25 Motion (degrees) Left Lumbar Spine Lateral Flexion Active 0-30 Range of Motion (degrees) Right Lumbar Spine Lateral Flexion 0-30 Active Range of Motion (degrees) Lumbar Spine ROM Limitations Pain Manual Muscle Test Bilateral Knee Extension Strength Grade 5 Normal Knee Flexion Strength Grade 5 Normal Hip Flexion Strength Grade 4- Good- Hip Abduction Strength Grade 4- Good- Hip Adduction Strength Grade 4 Good Hip Extension Strength Grade 4 Good Extensor Hallucis Longus Strength Grade 5 Normal Ankle Dorsiflexion Strength Grade 5 Normal Gastronemius/Soleus Strength Grade 5 Normal Special Tests Hip Piriformis Test Negative Left,Negative Right Sciatic Nerve Tension Test Positive Left,Positive Right Lumbar Long [place] Distraction Test/Manual Negative Traction Oswestry Index Section 1 Pain Intensity The pain is moderate and does not vary much Section 2 Personal Care (Washing,Dresing) my way of washing or dressing even though it causes some pain Section 3 Lifting I can only lift very light weights at most Section 4 Walking I cannot walk more than one mile wihtout increasing pain Section 5 Sitting Pain prevents me from sitting for more than one hour Section 6 Standing I cannot stand more than 1 hour without increasing pain Section 7 Sleeping Because of my pain, my normal night's sleep is less than 6 hours sleep Section 8 Social Life Pain has no significant effect on my social life apart from limiting Section 9 Traveling I get extra pain while traveling, but it does not compel me to seek al Section 10 Changing Degreee of Pain My pain is gradually getting worse Score and Risk Level Oswestry Sc 25 Oswestry Risk Level Severe Disability Outpatient Therapy Assessment Impairments Problems/Impairmments Palpation Tenderness,Impaired Range of Motion,Impaired Strength,Impaired Gait Pattern ,Impaired Walking,Impaired Standing,Impaired Lifting, Impaired Household Care, Impaired Squatting,Impaired Work Activities,Subjective C/O Pain,Impaired Self Care/Self Management Prognosis Rehab Potential Good Clinical Impression Consistent with Diagnosis Yes Short Term Goals Number of Weeks 4 Decreased Palpation Tenderness Yes: 1-2/4 lumbar spine Increase Range of Motion Yes: 75% OF WFL LUMBAR AROM Increase Strength Yes: 4/5 B/L LE'S Increase Ability to Walk Yes: 30MIN Increase Ability to Stand Yes: 30MIN Restore Ability to Lift Objects to Waist Yes: 10# Level Improve Ability For Household Care Yes: 30MIN Decrease Subjective C/O Pain Yes: 3-5/10 W/ABOVE ACTIVITIES Patient to be Ind w/ HEP Yes Yard Hand Goals Number of Weeks 6-8 Decreased Palpation Tenderness Yes: 0-1/4 LUMBAR SPINE Increase Range of Motion Yes: WFL LUMBAR AROM Increase Strength Yes: WFL B/L LE'S 5/5 Improve Gait Pattern without Assistive Yes: WFL Device Increase Ability to Walk Yes: 60MIN Increase Ability to Stand Yes: 60MIN Restore Ability to Lift Objects to Waist Yes: 20# Level Improve Ability For Household Care Yes: 60MIN Improve Ability to Squat Yes: WFL Improve Tolerance to Work Activities Yes: WFL FULL-DUTY Decrease Subjective C/O Pain Yes: 0-2/10 W/ABOVE ACTIVITIES Patient to be Ind w/ Advanced HEP Yes Outpatient Therapy Plan of Care Treatment Plan May Include Therapeutic Exercise Including Home Yes Exercise Program Manual Therapy Techniques Yes Neuromuscular Re-education Yes Therapeutic Activities to Return to Yes Previous Functional/Work Level Gait Training Yes ADL/Self Care Education Yes Dry Needling Yes Thermal Modalities Yes Electrical Stimulation Yes Ultrasound/Phonophoresis Yes Eval/Re-Eval Yes Frequency Times per week 2-3 Duration Number of Weeks 6-8 Addendums This patient is a candidate for social No or vocational rehab? Patient/Guardian verbally acknowledges Yes understanding of treatment program and consents to further treatment? Patient/Guardian verbally acknowledges Yes understanding of diagnosis, prognosis and goals for treatment? Eval Complexity PT Charges 71372 - Low Complexity Shoulder/Elbow Eval Shoulder Objective Measurements Elbow Objective Measurements PHYSICIAN CERTIFICATION: I certify the specified therapy services for Shelia Fonseca are required, authorized, and reviewed every 30 days.
== END 2023-03-19 10:30 | disposition home or self-care (01) ==
LOC: PT 09:30
PROVIDERS: PCP Emergency Medicine; Visit Provider Emergency Medicine
DX: M54.50 Low back pain, unspecified (principal); M54.16 Radiculopathy, lumbar region
CPT/HCPCS: 97110; 97163

== ENCOUNTER → 2023-05-07 23:00 | Outpatient (CLI) | payer OTHER, SELFPAY ==
[2023-05-07 19:41] LABS: Chol/HDL Ratio 3.8 (1-3.5); Cholesterol 173 mg/dl (140-200); HDL Cholesterol 45 mg/dl (40-60); Triglycerides 234 mg/dl (30-150); VLDL Cholesterol 47 mg/dL (0-40)
[2023-05-07 19:52] LABS: Direct LDL Cholesterol 78.77 mg/dL (100-129)
[2023-05-07 19:59] LABS: Free T4 (Free Thyroxine) 1.26 ng/dl (0.78-2.19)
[2023-05-07 20:02] LABS: 25-OH Vitamin D, Total < 12.8 ng/mL (30-100)
[2023-05-07 20:12] LABS: Thyroid Stimulating Hormone 0.45 uIU/mL (0.465-4.68)
[2023-05-07 20:48] LABS: Vitamin B12 456 pg/mL (239-931)
[2023-05-07 20:49] LABS: Folate 8.43 ng/mL
== END ==
LOC: LAB.DROPOF 05-08 03:16
PROVIDERS: PCP Internal Medicine; Visit Provider Internal Medicine
DX: M79.2 Neuralgia and neuritis, unspecified (principal); E55.9 Vitamin D deficiency, unspecified; Z79.899 Other long term (current) drug therapy
CPT/HCPCS: 80061; 82043; 82306; 82607; 82746; 84439; 84443

== ENCOUNTER → 2023-05-22 13:06 | Outpatient (CLI) | payer OTHER, SELFPAY ==
[2023-05-22 22:51] LABS: Amphetamine/Metha Screen,Urine Negative ng/ml (<1000)
[2023-05-22 22:52] LABS: Barbiturates Screen,Urine Negative ng/ml (<200)
[2023-05-22 22:53] LABS: Benzodiazepines Screen,Urine Negative ng/ml (<200); Cannabinoid Screen,Urine Negative ng/ml (<50)
[2023-05-22 22:54] LABS: Cocaine Screen,Urine Negative ng/ml (<300)
[2023-05-22 22:55] LABS: Methadone Screen,Urine Negative ng/ml (<300); Opiate Screen,Urine Negative ng/ml (<300)
[2023-05-22 22:56] LABS: Phencyclidine Screen,Urine Negative ng/ml (<25)
== END ==
LOC: LAB.DROPOF 05-28 13:06
PROVIDERS: PCP Family Medicine; Visit Provider Family Medicine
DX: Z79.899 Other long term (current) drug therapy (principal)
CPT/HCPCS: 80305

== ENCOUNTER → 2023-05-22 13:33 | Outpatient (CLI) | payer OTHER, SELFPAY ==
[2023-06-01 16:14] LABS: Opiates Negative ng/mL (Cutoff=100)
== END ==
LOC: LAB.DROPOF 05-28 13:33
PROVIDERS: PCP Family Medicine; Visit Provider Family Medicine
DX: Z79.899 Other long term (current) drug therapy (principal)
CPT/HCPCS: 80361; G0480

== ENCOUNTER 2023-06-03 07:19 | Outpatient (CLI) | payer OTHER, SELFPAY ==
[2023-06-03 20:41] LABS: Amphetamine/Metha Screen,Urine Negative ng/ml (<1000); Barbiturates Screen,Urine Negative ng/ml (<200); Benzodiazepines Screen,Urine Negative ng/ml (<200); Cannabinoid Screen,Urine Negative ng/ml (<50); Cocaine Screen,Urine Negative ng/ml (<300); Methadone Screen,Urine Negative ng/ml (<300); Opiate Screen,Urine Positive ng/ml (<300); Phencyclidine Screen,Urine Negative ng/ml (<25)
== END 2023-06-03 23:59 ==
LOC: LAB.DROPOF 06-04 07:20
PROVIDERS: PCP Family Medicine; Visit Provider Family Medicine
DX: Z79.899 Other long term (current) drug therapy (principal)
CPT/HCPCS: 80307; 80365

== ENCOUNTER 2023-06-11 09:02 | Outpatient (CLI) | payer BC, SELFPAY ==
[2023-06-11 09:30] LABS: Basophils % 0.3 % (0.1-2.0); Eosinophils # 0.3 K/mm3 (0.0-0.4); Eosinophils % 3.2 % (0.1-12.0); Hematocrit 32.8 % (37.0-47.0); Lymphocytes # 1.5 K/mm3 (0.7-4.5); Lymphocytes % 14.3 % (10-50); Mean Corpuscular HGB Conc 33.6 g/dL (31.8-35.4); Mean Corpuscular Hemoglobin 29.6 pg (27.0-31.2); Mean Corpuscular Volume 88.2 fl (81-99); Mean Platelet Volume 8.3 fl (7.4-10.4); Monocytes # 0.4 K/mm3 (0.1-1.0); Monocytes % 3.9 % (1.7-9.3); Neutrophils # 8.2 K/mm3 (1.8-7.8); Neutrophils % 78.4 % (37.0-80.0); Platelet Count 467 K/mm3 (142-424); Red Blood Count 3.72 M/mm3 (4.20-5.40); Red Cell Distribution Width 15.2 % (11.5-17.5); White Blood Count 10.4 K/mm3 (4.8-10.8)
[2023-06-11 10:22] LABS: Blood Urea Nitrogen 15 mg/dl (7-17); Calcium 9.1 mg/dl (8.4-10.2); Carbon Dioxide 30 mmol/L (22.0-30.0); Chloride 102 mmol/L (98-107); Estimated Glomerular Filt Rate 68 ml/min (>60); GFR (African American) 82 ML/MIN (>60); Glucose 92 mg/dl (74-100); Sodium 138 mmol/L (136-145)
== END 2023-06-11 23:59 ==
LOC: LAB 09:05
PROVIDERS: PCP Internal Medicine; Visit Provider Physician Assistant
DX: I11.0 Hypertensive heart disease with heart failure (principal); I42.8 Other cardiomyopathies; I50.22 Chronic systolic (congestive) heart failure
CPT/HCPCS: 36415; 80048; 85025

== ENCOUNTER 2023-07-23 22:01 | Outpatient (CLI) | payer BC, SELFPAY ==
[2023-07-23 18:31] LABS: Basophils % 0.2 % (0.1-2.0); Eosinophils # 0.2 K/mm3 (0.0-0.4); Hematocrit 36.8 % (37.0-47.0); Hemoglobin 11.4 g/dL (12.2-16.2); Lymphocytes # 1.9 K/mm3 (0.7-4.5); Lymphocytes % 17.1 % (10-50); Mean Corpuscular HGB Conc 31.1 g/dL (31.8-35.4); Mean Corpuscular Volume 93.4 fl (81-99); Mean Platelet Volume 9.4 fl (7.4-10.4); Monocytes # 0.5 K/mm3 (0.1-1.0); Monocytes % 4.3 % (1.7-9.3); Neutrophils # 8.3 K/mm3 (1.8-7.8); Neutrophils % 76.4 % (37.0-80.0); Platelet Count 440 K/mm3 (142-424); Red Blood Count 3.94 M/mm3 (4.20-5.40); Red Cell Distribution Width 15.4 % (11.5-17.5); White Blood Count 10.9 K/mm3 (4.8-10.8)
[2023-07-23 18:47] LABS: Erythrocyte Sedimentation Rate 42 mm/hr (0-20)
[2023-07-23 19:06] LABS: Iron 61 ug/dL (37-170)
[2023-07-23 19:13] LABS: C-Reactive Protein 3.6 mg/L (0-4)
[2023-07-23 19:47] LABS: Total Iron Binding Capacity 354 ug/dL (265-497)
== END 2023-07-23 23:59 ==
LOC: LAB.DROPOF 22:01
PROVIDERS: PCP Internal Medicine; Visit Provider Internal Medicine
DX: R53.83 Other fatigue (principal)
CPT/HCPCS: 82728; 83540; 83550; 85025; 85651; 86140

== ENCOUNTER 2023-10-13 15:28 | Emergency (ER) | payer BC, SELFPAY ==
[2023-10-13 15:29] VITALS: BP 151/80; PULSE 82; RESP 18; TEMP 36.6; O2SAT 99; BMI 45.4
--- NOTE | 2023-10-13 15:58 | ED_ITS ---
Discharge Plan Disposition Patient Disposition: Home, Self-Care Condition: Good Prescriptions Prescriptions: New ketorolac 10 mg tablet 10 mg PO Q8H PRN (Reason: pain) 5 Days Qty: 15 0RF No Action atorvastatin 40 mg tablet See Rx Instructions .ROUTE .COMPLEX Qty: 90 4RF Dose Instruction: TAKE ONE TABLET BY MOUTH ONCE A DAY Rx Instructions: TAKE ONE TABLET BY MOUTH ONCE A DAY fenofibrate 50 mg capsule 50 mg PO DAILY 30 Days Qty: 30 2RF hydrocodone-acetaminophen 7.5-325 mg tablet 1 tab PO Q6H PRN (Reason: pain) 30 Days Qty: 120 0RF hydrocodone-acetaminophen 7.5-325 mg tablet 1 tab PO Q6H PRN (Reason: pain) 30 Days Qty: 120 0RF brimonidine 0.33 % gel with pump 1 applic topical DAILY Qty: 30 2RF lisinopril 20 mg tablet 20 mg PO DAILY 180 Days Qty: 180 3RF ferrous sulfate 325 mg (65 mg iron) tablet 325 mg PO DAILY 30 Days Qty: 30 4RF cholecalciferol (vitamin D3) 125 mcg (5,000 unit) capsule 125 mcg PO DAILY 90 Days Qty: 90 4RF carvedilol 12.5 mg tablet See Rx Instructions .ROUTE .COMPLEX Qty: 180 3RF Dose Instruction: TAKE ONE TABLET BY MOUTH 2 TIMES A DAY FOR HIGH BLOOD PRESSURE Rx Instructions: TAKE ONE TABLET BY MOUTH 2 TIMES A DAY FOR HIGH BLOOD PRESSURE bumetanide 1 mg tablet 1 mg PO BIDL Qty: 180 3RF Referrals Follow up/Referrals: Johnny Gale DO [Primary Care Provider] - See instructions Activity Restrictions/Add. Instructions Additional Instructions/Restrictions: You have been evaluated in the ED for your complaints. You may follow-up with your PCP in the next 3 to 5 days. Please return to ED for any new or worsening symptoms. Please keep your appoint with your PCP on 10/15/2023 as discussed. I have written for Toradol to assist with pain. Clinical Impressions Clinical Impression: Lower extremity pain, bilateral Discharge ED Provider: Balta Nair Adult HPI General Chief complaint: PAIN Stated complaint: bilateral leg pain, no accident Time Seen by Provider: 10/13/23 15:57 History of Present Illness HPI narrative: 43-year-old female with past medical history significant for CHF, HTN, cardiomyopathy, HLD, osteoarthritis of the left knee, presents today for evaluation concerning bilateral knee pain and lower extremity pain worsening over the past couple days. She denies any falls or other trauma. Denies any fevers, chills, chest pain or shortness of breath. She states she has had difficulty with ambulation secondary to pain. No further complaints. Related Data Previous Rx's Medication Instructions Recorded carvedilol 12.5 mg tablet See Rx Instructions .Route 02/27/23 .COMPLEX #180 tabs bumetanide 1 mg tablet 1 mg PO BIDL Heart failure #180 03/10/23 tabs atorvastatin 40 mg tablet See Rx Instructions .Route 07/23/23 .COMPLEX #90 tabs fenofibrate 50 mg capsule 50 mg PO DAILY 30 days #30 caps 07/23/23 brimonidine 0.33 % topical gel 1 applic topical DAILY rosacea #30 08/18/23 with pump grams cholecalciferol (vitamin D3) 125 125 mcg PO DAILY 90 days #90 caps 08/18/23 mcg (5,000 unit) capsule ferrous sulfate 325 mg (65 mg 325 mg PO DAILY 30 days #30 tabs 08/18/23 iron) tablet hydrocodone 7.5 mg-acetaminophen 1 tab PO Q6H PRN pain 30 days #120 08/18/23 325 mg tablet tabs hydrocodone 7.5 mg-acetaminophen 1 tab PO Q6H PRN pain 30 days #120 08/18/23 325 mg tablet tabs lisinopril 20 mg tablet 20 mg PO DAILY 180 days #180 tabs 08/18/23 ketorolac 10 mg tablet 10 mg PO Q8H PRN pain 5 days #15 10/13/23 tabs Allergies Allergy/AdvReac Type Severity Reaction Status Date / Time No Known Allergies Allergy Verified 08/22/23 08:29 [facility] Disclaimer: The information contained in this section may have been updated after the patient was seen, as this information can be updated by other users. Medical History Chronic HFrEF (heart failure with reduced ejection fraction) Cholelithiasis Anxiety HTN (hypertension) Blood pressures are good we will just continue this. She checks them at home and I have encouraged her to continue. Nonischemic cardiomyopathy Dilated cardiomyopathy CHF (congestive heart failure) Hyperlipidemia Patient's lipid panel done in June was good. It was a nonfasting panel with a high triglyceride but this is because it was nonfasting. Would consider when she returns lipid panel. Hyperlipidemia Dilated cardiomyopathy CHF (congestive heart failure) Osteoarthritis of right knee Will just treat with medications at this point. I do think she may need to see orthopedics in the future. Additionally she is not had an x-ray of the knee and we should do that. Will also send her to physical therapy. Sciatic leg pain Influenza Acute HFrEF (heart failure with reduced ejection fraction) Sepsis Sepsis with End-organ damage (ARDS) 2/2 bialteral pneumonia 2/2 yeast Bilateral pneumonia ARDS (adult respiratory distress syndrome) Bilateral lower extremity edema Bilateral pleural effusion Surgical History Hx of cholecystectomy History of laparoscopic cholecystectomy No significant past surgical history Family History Other Breast cancer Lung cancer Social History Smoking Status: Never smoker second hand exposure: No alcohol intake: never substance use type: denies use current occupational status: employed Travel in the last 8 weeks: None household members: significant other and children housing: house 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 caffeine: Yes ROS Obtained: Yes All systems reviewed & no additional complaints except as documented Physical Exam General General appearance: alert and in no apparent distress Head Head exam: atraumatic and normocephalic Eye Eye exam: Present normal appearance, PERRL and EOMI ENT ENT exam: Present normal oropharynx and mucous membranes moist Neck Neck exam: Present full ROM; Absent meningismus Respiratory Respiratory exam: Absent respiratory distress, wheezes, stridor or accessory muscle use Cardiovascular Cardiovascular exam: Present normal rhythm Abdominal Exam Abdominal exam: Present soft; Absent distention, tenderness, guarding, rebound or rigidity Neurological Exam Neurological exam: Present alert, oriented X3 and CN II-XII intact; Absent motor sensory deficit Psychiatric Psychiatric exam: Present normal affect and normal mood Skin Skin exam: Present warm and dry Medical Decision Making Medical Records Medical records reviewed: Yes I reviewed the patient's medical records. Nikita Inquiry Pt receiving controlled substance: No Nikita was queried for this patient: No Vital Signs: 10/13/23 15:29 10/13/23 16:55 10/13/23 17:00 Temperature 97.8 F Temperature Source Oral Pulse Rate 68 69 Pulse Rate [Right Radial] 82 Respiratory Rate 18 Blood Pressure 102/84 L 98/58 L Blood Pressure [Right Arm] 151/80 H Blood Pressure Mean [Right Arm] 103 Blood Pressure Source [Right Arm] Automatic Cuff Blood Pressure Position [Right Arm] Supine 02 Sat by Pulse Oximetry 99 97 93 L Oxygen Delivery Method Room Air Room Air Room Air 10/13/23 17:30 10/13/23 18:00 Temperature Temperature Source Pulse Rate 66 71 Pulse Rate [Right Radial] Respiratory Rate Blood Pressure 114/73 121/68 Blood Pressure [Right Arm] Blood Pressure Mean [Right Arm] Blood Pressure Source [Right Arm] Blood Pressure Position [Right Arm] 02 Sat by Pulse Oximetry 98 98 Oxygen Delivery Method Room Air Room Air Lab Data Lab Results 10/13/23 16:48: WBC 9.0, RBC 4.53, Hgb 13.6, Hct 42.8, MCV 94.5, MCH 30.1, MCHC 31.9, RDW 17.3, Plt Count 383, MPV 8.4, Neut % (Auto) 75.6, Lymph % (Auto) 16.3, [place] % (Auto) 5.2, Eos % (Auto) 2.6, Baso % (Auto) 0.4, Neut # (Auto) 6.8, Lymph # (Auto) 1.5, [place] # (Auto) 0.5, Eos # (Auto) 0.2, Baso # (Auto) 0.0, Sodium 141, Potassium 3.9, Chloride 106, Carbon Dioxide 28, Anion Gap 10.9, BUN 14, Creatinine 0.90, Estimated Creat Clear 77, Estimated GFR 68, Est GFR ( Amer) 82, Glucose 92, Calcium 9.7, Magnesium 2.2, Total Bilirubin 0.8, AST 51 H, ALT 58, Alkaline Phosphatase 120, Total Creatine Kinase 108, NT-Pro-B Natriuret Pep 119, Total Protein 7.9, Albumin 4.5, Globulin 3.4 H, Albumin/Globulin Ratio 1.3 10/13/23 16:48 10/13/23 16:48 Orders (Tests/Meds): ED MEDICATIONS Discontinued Medications Generic Name Dose Route Start Last Admin Trade Name Freq PRN Reason Stop Dose Admin Ketorolac Tromethamine 30 mg 10/13/23 18:08 10/13/23 18:10 Ketorolac 30mg/Ml Vial IV 10/13/23 18:09 30 mg ONCE ONE Administration Morphine Sulfate 4 mg 10/13/23 16:37 10/13/23 16:51 Morphine 4mg/Ml Syringe IV 10/13/23 16:38 4 mg ONCE ONE Administration Ondansetron HCl 4 mg 10/13/23 16:37 10/13/23 16:51 Ondansetron 4mg/2ml Vial IV 10/13/23 16:38 4 mg ONCE ONE Administration ORDERS Category Date Time Status BNP [NT Pro Brain Natriuretic Pep.] Stat Lab 10/13/23 16:48 Completed CBC w/Auto Diff [Complete Blood Count Auto Diff] Stat Lab 10/13/23 16:48 Completed CK [Creatine Kinase] Stat Lab 10/13/23 16:48 Completed CMP [Comprehensive Metabolic Panel] Stat Lab 10/13/23 16:48 Completed MAG [Magnesium] Stat Lab 10/13/23 16:48 Completed Medical Decision Narrative: 43-year-old female with past medical history significant for CHF, HTN, cardiomyopathy, HLD, osteoarthritis of the left knee, presents today for evaluation concerning bilateral knee pain and lower extremity pain worsening over the past couple days. She denies any falls or other trauma. Denies any fevers, chills, chest pain or shortness of breath. She states she has had difficulty with ambulation secondary to pain. On assessment, she was hemodynamically stable and in no acute distress. Afebrile. Lower extremities were without any erythema. No pitting edema noted. Palpable DP pulses. Sensation intact. No calf tenderness. Differential diagnoses include but limited to arthritis, musculoskeletal pain, rhabdomyolysis, myositis, among others. No elevation in WBC at 9. No electrolyte derangements. Sodium, potassium, calcium and magnesium within range. I did consider x-ray imaging however patient did have full range of motion of her knees bilaterally and did discuss a history of arthritis in her left knee. There are also no overlying skin changes and she was able to ambulate. On reassessment she was medically stable and in no acute distress, able to ambulate without difficulty after pain medications. I will provide her with Toradol to further assist. She has an appointment with her PCP on 10/15/2023. Will send home with Toradol. She verbalized understanding and agreement. Provided with return precautions. Subsequently discharged hemodynamically stable and in no acute distress. Critical Care Critical Care Time Critical Care Time: No
[2023-10-13] MEDS: ONDANSETRON 4MG/2ML VIAL 4 MG IV (16:51)
[2023-10-13] MEDS: MORPHINE 4MG/ML SYRINGE 4 MG IV (16:51)
[2023-10-13 16:55] VITALS: BP 102/84; PULSE 68; O2SAT 97
[2023-10-13 17:00] VITALS: BP 98/58; PULSE 69; O2SAT 93
[2023-10-13 17:00] LABS: Chloride 106 mmol/L (98-107); Potassium 3.9 mmoL/L (3.5-5.1); Sodium 141 mmol/L (136-145)
[2023-10-13 17:03] LABS: Alanine Aminotransferase 58 U/L (12-78); Albumin Level 4.5 g/dl (3.5-5.0); Albumin/Globulin Ratio 1.3 (1.1-1.8); Alkaline Phosphatase 120 U/L (38-126); Anion Gap 10.9 mEq/L (5-15); Aspartate Amino Transferase 51 U/L (14-36); Bilirubin,Total 0.8 mg/dl (0.2-1.3); Blood Urea Nitrogen 14 mg/dl (7-17); Calcium 9.7 mg/dl (8.4-10.2); Carbon Dioxide 28 mmol/L (22.0-30.0); Creatine Kinase 108 U/L (30-135); Creatinine Clearance Estimated 77 mL/min (50-200); Estimated Glomerular Filt Rate 68 ml/min (>60); GFR (African American) 82 ML/MIN (>60); Globulin 3.4 g/dL (1.3-3.2); Glucose 92 mg/dl (74-100); Magnesium 2.2 mg/dl (1.6-2.3); Total Protein,Serum 7.9 g/dl (6.3-8.2)
[2023-10-13 17:13] LABS: NT Pro Brain Natriuretic Pep. 119 pg/mL (0-125)
[2023-10-13 17:30] VITALS: BP 114/73; PULSE 66; O2SAT 98
[2023-10-13 17:30] LABS: Basophils % 0.4 % (0.1-2.0); Eosinophils # 0.2 K/mm3 (0.0-0.4); Eosinophils % 2.6 % (0.1-12.0); Hematocrit 42.8 % (37.0-47.0); Hemoglobin 13.6 g/dL (12.2-16.2); Lymphocytes # 1.5 K/mm3 (0.7-4.5); Lymphocytes % 16.3 % (10-50); Mean Corpuscular HGB Conc 31.9 g/dL (31.8-35.4); Mean Corpuscular Hemoglobin 30.1 pg (27.0-31.2); Mean Corpuscular Volume 94.5 fl (81-99); Mean Platelet Volume 8.4 fl (7.4-10.4); Monocytes # 0.5 K/mm3 (0.1-1.0); Monocytes % 5.2 % (1.7-9.3); Neutrophils # 6.8 K/mm3 (1.8-7.8); Neutrophils % 75.6 % (37.0-80.0); Platelet Count 383 K/mm3 (142-424); Red Blood Count 4.53 M/mm3 (4.20-5.40); Red Cell Distribution Width 17.3 % (11.5-17.5)
[2023-10-13 18:00] VITALS: BP 121/68; PULSE 71; O2SAT 98
--- NOTE | 2023-10-13 18:07 | PC.NURSE ---
Patient was able to ambulate independently. Patient rates pain 7/10. MD aware.
[2023-10-13] MEDS: KETOROLAC 30MG/ML VIAL 30 MG IV (18:10)
[2023-10-13 18:38] VITALS: BP 121/78; PULSE 70; RESP 16; TEMP 36.6; O2SAT 97
== END 2023-10-13 18:40 | disposition home or self-care (01) ==
PROVIDERS: Emergency Provider Emergency Medicine; PCP Internal Medicine
DX: M79.604 Pain in right leg (principal); M79.605 Pain in left leg; I11.0 Hypertensive heart disease with heart failure; I50.9 Heart failure, unspecified; E78.5 Hyperlipidemia, unspecified
CPT/HCPCS: 80053; 82550; 83735; 83880; 85025; 96374; 96375; 99284; J2405

== ENCOUNTER 2023-10-16 09:47 | Outpatient (CLI) | payer BC, SELFPAY ==
[2023-10-15 18:11] LABS: Chol/HDL Ratio 5.5 (1-3.5); Cholesterol 257 mg/dl (140-200); HDL Cholesterol 47 mg/dl (40-60); Triglycerides 267 mg/dl (30-150); VLDL Cholesterol 53 mg/dL (0-40)
[2023-10-15 18:24] LABS: Direct LDL Cholesterol 129.58 mg/dL (100-129)
[2023-10-15 18:32] LABS: 25-OH Vitamin D, Total 22.3 ng/mL (30-100)
== END 2023-10-16 23:59 | disposition home or self-care (01) ==
LOC: LAB.DROPOF 09:47
PROVIDERS: PCP Internal Medicine; Visit Provider Internal Medicine
DX: E55.9 Vitamin D deficiency, unspecified (principal); D64.9 Anemia, unspecified; Z68.41 Body mass index [BMI] 40.0-44.9, adult
CPT/HCPCS: 80061; 82306; 84443

== ENCOUNTER 2023-12-10 09:30 | Outpatient (CLI) | payer BC, SELFPAY ==
[2023-12-10 18:55] LABS: Chol/HDL Ratio 3.1 (1-3.5); Cholesterol 136 mg/dl (140-200); HDL Cholesterol 44 mg/dl (40-60); Triglycerides 115 mg/dl (30-150); VLDL Cholesterol 23 mg/dL (0-40)
[2023-12-10 19:06] LABS: Direct LDL Cholesterol 57.09 mg/dL (100-129)
[2023-12-10 19:43] LABS: Vitamin B12 420 pg/mL (239-931)
[2023-12-10 20:15] LABS: 25-OH Vitamin D, Total 25.4 ng/mL (30-100)
== END 2023-12-10 23:59 | disposition home or self-care (01) ==
LOC: LAB.DROPOF 12-11 08:53
PROVIDERS: PCP Internal Medicine; Visit Provider Internal Medicine
DX: R53.83 Other fatigue (principal); E55.9 Vitamin D deficiency, unspecified; E78.5 Hyperlipidemia, unspecified; Z79.899 Other long term (current) drug therapy
CPT/HCPCS: 80061; 82306; 82607

== ENCOUNTER 2024-02-12 09:45 | Outpatient (CLI) | payer BC, SELFPAY ==
[2024-02-12 19:31] LABS: Hemoglobin A1C 5.4 % (4.0-6.0)
[2024-02-13 07:28] LABS: HIV (1&2) Antibody Rapid NONREACTIVE (NONREACTIVE)
[2024-02-14 09:57] LABS: HBsAg Screen Negative (Negative); HCV Ab Non Reactive (Non Reactive); Hep A Ab, IGM Negative (Negative); Hep B Core Ab, IgM Negative (Negative)
== END 2024-02-12 23:59 | disposition home or self-care (01) ==
LOC: LAB.DROPOF 02-13 13:45
PROVIDERS: PCP Internal Medicine; Visit Provider Internal Medicine
DX: Z11.59 Encounter for screening for other viral diseases (principal); Z13.1 Encounter for screening for diabetes mellitus
CPT/HCPCS: 80074; 83036; 86803; 87389

== ENCOUNTER 2024-06-02 09:33 | Emergency (ER) | payer SELFPAY ==
[2024-06-02] VITALS (10 sets, daily range): BP systolic 92–127; BP diastolic 51–68; PULSE 84–107; RESP 18–20; TEMP 36.8; O2SAT 97–99; BMI 37.5
--- NOTE | 2024-06-02 10:00 | PC.NURSE ---
DR SHARP AT BEDSIDE
--- NOTE | 2024-06-02 10:05 | XR_ITS ---
PROCEDURE INFORMATION: Exam: XR Chest Exam date and time: 06/02/2024 10:30 AM Age: 44 years old Clinical indication: Cough TECHNIQUE: Imaging protocol: Radiologic exam of the chest. Views: 1 view. Total images: 1 COMPARISON: CR XR CHEST 2V 01/10/2023 9:31 AM FINDINGS: Lungs: Atelectatic changes right lung base. Bilateral hyperinflation is present. Pleural spaces: Unremarkable. No pleural effusion. No pneumothorax. Heart/Mediastinum: Heart demonstrates mild diffuse enlargement. Bones/joints: Unremarkable. IMPRESSION: 1. Atelectatic changes right lung base. 2. Bilateral hyperinflation is present. 3. Mild cardiomegaly.
--- NOTE | 2024-06-02 10:06 | ED_ITS ---
Discharge Plan Disposition Patient Disposition: Home, Self-Care Prescriptions Prescriptions: New ondansetron 4 mg tablet,disintegrating 4 mg PO Q8H PRN (Reason: nausea and vomiting) 4 Days Qty: 12 0RF No Action atorvastatin 80 mg tablet 80 mg PO DAILY Qty: 30 2RF fluoxetine 20 mg capsule 20 mg PO DAILY Qty: 30 2RF carvedilol 12.5 mg tablet See Rx Instructions .ROUTE .COMPLEX Qty: 180 3RF Dose Instruction: TAKE ONE TABLET BY MOUTH 2 TIMES A DAY FOR HIGH BLOOD PRESSURE Rx Instructions: TAKE ONE TABLET BY MOUTH 2 TIMES A DAY FOR HIGH BLOOD PRESSURE lisinopril 20 mg tablet 20 mg PO DAILY 180 Days Qty: 180 3RF bumetanide 1 mg tablet 1 mg PO BIDL Qty: 180 1RF gabapentin 300 mg capsule 300 mg PO TID 30 Days Qty: 90 1RF hydrocodone-acetaminophen 7.5-325 mg tablet 1 tab PO Q6H PRN (Reason: pain) 30 Days Qty: 120 0RF Referrals Follow up/Referrals: Johnny Gale DO [Primary Care Provider] - See instructions Activity Restrictions/Add. Instructions Additional Instructions/Restrictions: At this time it was felt you are safe to be discharged home. If new or worsening symptoms please do not hesitate to return the emergency department. Please take your medications as prescribed. Clinical Impressions Clinical Impression: Influenza A Print Language Print Language: Norwegian Discharge ED Provider: Yobani Shah General Adult HPI General Chief complaint: Upper Respiratory Infection Stated complaint: fever, vomiting, body aches, H/A, Chills Time Seen by Provider: 06/02/24 09:58 Mode of Arrival: Ambulatory Source of Information: Patient Limitations: No Limitations Description of Symptoms (Recalled from ER Triage Doc. by RN): flu like symptoms. since friday. works in a [place] History of Present Illness HPI narrative: Patient is a 44-year-old female presents emergency department for evaluation of vomiting, cough, body aches. Onset was acute, occurring since Friday. Patient works in a [place]. There is associated diarrhea that is been nonbloody. No reports of abdominal pain or chest pain. No other acute complaints at this time. Related Data Previous Rx's ?Medication ?Instructions ?Recorded carvedilol 12.5 mg tablet See Rx Instructions .Route 01/15/24 .COMPLEX #180 tabs lisinopril 20 mg tablet 20 mg PO DAILY 180 days #180 tabs 01/15/24 bumetanide 1 mg tablet 1 mg PO BIDL Heart failure #180 03/17/24 tabs atorvastatin 80 mg tablet 80 mg PO DAILY #30 tabs 04/22/24 fluoxetine 20 mg capsule 20 mg PO DAILY #30 caps 04/22/24 gabapentin 300 mg capsule 300 mg PO TID 30 days #90 caps 05/13/24 hydrocodone 7.5 mg-acetaminophen 1 tab PO Q6H PRN pain 30 days #120 05/13/24 325 mg tablet tabs ondansetron 4 mg disintegrating 4 mg PO Q8H PRN nausea and 06/02/24 tablet vomiting 4 days #12 tabs Allergies Allergy/AdvReac Type Severity Reaction Status Date / Time No Known Allergies Allergy Verified 04/22/24 09:11 [facility] Disclaimer: The information contained in this section may have been updated after the patient was seen, as this information can be updated by other users. Medical History Chronic HFrEF (heart failure with reduced ejection fraction) Cholelithiasis Anxiety HTN (hypertension) Nonischemic cardiomyopathy Dilated cardiomyopathy CHF (congestive heart failure) Hyperlipidemia Hyperlipidemia Dilated cardiomyopathy CHF (congestive heart failure) Osteoarthritis of right knee Will just treat with medications at this point. I do think she may need to see orthopedics in the future. Additionally she is not had an x-ray of the knee and we should do that. Will also send her to physical therapy. Sciatic leg pain Influenza Acute HFrEF (heart failure with reduced ejection fraction) Sepsis Sepsis with End-organ damage (ARDS) 2/2 bialteral pneumonia 2/2 yeast Bilateral pneumonia ARDS (adult respiratory distress syndrome) Bilateral lower extremity edema Bilateral pleural effusion Surgical History Hx of cholecystectomy History of laparoscopic cholecystectomy No significant past surgical history Family History Other Breast cancer Lung cancer Social History (Updated 04/26/24 @ 12:01 by Johnny Gale DO) Smoking Status: Never smoker second hand exposure: No alcohol intake: never substance use type: denies use current occupational status: employed Travel in the last 8 weeks: None household members: significant other and children housing: house current occupation: [employer] caffeine: Yes Have you lived/traveled outside [place] in past 30 days?: No Contact w/someone who lives/traveled outside US past 30 days?: No Exposure to someone with infectious disease in past 14 days?: No Do you have a fever (greater than 100.4 F or 38 C)?: Yes Have you tested positive for COVID-19: No Exposed to someone with COVID-19 in past 14 days?: No Do you have a sore throat?: No Do you have a cough?: Yes Do you have any weakness?: Yes Do you have any diarrhea?: No Are you experiencing any unusual bleeding?: No Do you have any muscle aches/pain?: Yes Do you have any abdominal pain?: No Are you experiencing loss of taste or smell?: No Other Medical History Have you received the Flu Vaccine for this season: No Have you received the Pneumonia Vaccine: No ROS Obtained: Yes Systems reviewed as appropriate & no additional complaints except as documented Physical Exam General General appearance: alert and in no apparent distress Head Head exam: atraumatic and normocephalic Eye Eye exam: Present PERRL ENT ENT exam: Present mucous membranes moist Neck Neck exam: Present normal inspection Chest Chest inspection: Present normal inspection and symmetric chest wall rise Respiratory Respiratory exam: Present normal lung sounds bilaterally; Absent respiratory distress Cardiovascular Cardiovascular exam: Present regular rate and normal rhythm Abdominal Exam Abdominal exam: Present soft; Absent tenderness, guarding or rebound Extremities Exam Extremities exam: Present normal inspection Neurological Exam Neurological exam: Present alert Psychiatric Psychiatric exam: Present normal affect Skin Skin exam: Present warm and dry Medical Decision Making Medical Records Screening: Per USPSTF and CDC recommendations, given the prevalence of disease in our region, it is our hospital?s policy to screen for HIV and viral Hepatitis for all patients aged 18 and over and those with ongoing risk factors. Nikita Inquiry Pt receiving controlled substance: No Vital Signs: 06/02/24 09:35 06/02/24 09:39 06/02/24 09:45 Temperature 98.2 F Temperature Source Oral Pulse Rate 107 H 101 H Pulse Rate [Right] 86 Respiratory Rate 18 Blood Pressure 120/51 L 98/66 L Blood Pressure [Right Arm] 120/51 L Blood Pressure Mean [Right Arm] 74 02 Sat by Pulse Oximetry 97 97 97 Oxygen Delivery Method Room Air Room Air Room Air 06/02/24 10:00 06/02/24 10:13 06/02/24 10:15 Temperature Temperature Source Pulse Rate 95 H 93 H 94 H Pulse Rate [Right] Respiratory Rate Blood Pressure 98/63 L 127/59 L 92/57 L Blood Pressure [Right Arm] Blood Pressure Mean [Right Arm] 02 Sat by Pulse Oximetry 99 97 99 Oxygen Delivery Method Room Air Room Air Room Air 06/02/24 10:30 Temperature Temperature Source Pulse Rate 94 H Pulse Rate [Right] Respiratory Rate Blood Pressure 99/64 L Blood Pressure [Right Arm] Blood Pressure Mean [Right Arm] 02 Sat by Pulse Oximetry 98 Oxygen Delivery Method Room Air Lab Data Lab Results 06/02/24 09:37: SARS-CoV-2 (PCR) Not detected, Influenza A Untype (PCR) Detected A, Influenza Type B (PCR) Not detected 06/02/24 10:16: WBC 9.5, RBC 4.28, Hgb 13.3, Hct 39.6, MCV 92.5, MCH 31.1, MCHC 33.6, RDW 14.3, Plt Count 281, MPV 10.2, Neut % (Auto) 78.2, Lymph % (Auto) 9.5 L, Wright % (Auto) 9.0, Eos % (Auto) 2.5, Baso % (Auto) 0.3, Neut # (Auto) 7.4, Lymph # (Auto) 0.9, Wright # (Auto) 0.9, Eos # (Auto) 0.2, Baso # (Auto) 0.0, Sodium 136, Potassium 3.5, Chloride 107, Carbon Dioxide 20 L, Anion Gap 12.5, BUN 10, Creatinine 0.90, Estimated Creat Clear 134, Estimated GFR 67, Est GFR ( Amer) 82, Glucose 94, Calcium 9.5, Total Bilirubin 0.7, AST 39 H, ALT 40, Alkaline Phosphatase 93, Troponin I < 0.01, Total Protein 6.6, Albumin 4.0, Globulin 2.6, Albumin/Globulin Ratio 1.5, Lipase 132 06/02/24 10:16 06/02/24 10:16 Orders (Tests/Meds): ED MEDICATIONS Discontinued Medications Generic Name Dose Route Start Last Admin Trade Name Freq PRN Reason Stop Dose Admin Lactated Ringer's 1,000 mls @ 999 mls/hr 06/02/24 10:05 06/02/24 10:35 Lactated Ringer's 1000 Ml Bag IV 06/02/24 11:05 999 mls/hr .Q1H1M ONE Administration Ondansetron HCl 4 mg 06/02/24 10:05 06/02/24 10:35 Ondansetron 4mg/2ml Vial IV 06/02/24 10:06 4 mg ONCE ONE Administration ORDERS Category Date Time Status CXR --portable [XR chest portable] Stat Exams 06/02/24 10:05 Taken CBC w/Auto Diff [Complete Blood Count Auto Diff] Stat Lab 06/02/24 10:16 Completed CMP [Comprehensive Metabolic Panel] Stat Lab 06/02/24 10:16 Completed Lipase Stat Lab 06/02/24 10:16 Completed Rapid PCR Covid and Flu A/B Stat Lab 06/02/24 09:37 Completed Troponin I Q3H Lab 06/02/24 13:15 Ordered Troponin I Q3H Lab 06/02/24 16:15 Ordered Troponin I Stat Lab 06/02/24 10:16 Completed EKG Request [ECG Request] Stat Y 06/02/24 10:14 Ordered ECG Data Tracing #1: Independently interpreted by me rate is 90, rhythm is regular, axis is normal, no ST elevation in anatomical contiguous leads. QTc 390 Medical Decision Narrative: In summary patient is a 44-year-old female past medical history described above presents emergency department for evaluation of bodyaches, cough, vomiting and diarrhea. Patient is hemodynamically stable nontoxic-appearing upon arrival, afebrile, slight tachycardia on my exam likely secondary to hypovolemia. Patient does not have any chest pain, she has a cough but did not state that she had shortness of breath. Differential is strongly consistent with viral syndrome but also includes pneumonia, electrolyte abnormality, pancreatitis, among others. Workup will be conducted with hematologic labs, chest x-ray, EKG, single troponin. Initial inventions include crystalloid bolus, Zofran. Initial workup reviewed by me, hematologic labs are nonactionable, no significant leukocytosis or anemia, no JOSE or critical electrolyte abnormality initial troponin undetectably low lipase negative swab remarkable for influenza A which aligns up with patient's symptoms. Upon repeat evaluation patient remained hemodynamically stable and was tolerating p.o. at bedside. Given this patient is appropriate for discharge at this time was given return precautions verbalized understanding will be discharged with course of Sriram. Critical Care Critical Care Time Critical Care Time: No
[2024-06-02 10:13] LABS: Coronavirus 19, PCR Not Detected (NotDetected); Influenza B, PCR Not Detected (NotDetected)
--- NOTE | 2024-06-02 10:21 | ECG_ITS ---
APPROVED REPORT Exam: Resting ECG HR:90 bpm ECG Measurements Heart Rate 90 AXES MA 153 P 49 QRSd 83 QRS -6 QT 350 T 53 QTc 398 Conclusion SINUS RHYTHM NONSPECIFIC T-WAVE ABNORMALITY BORDERLINE ECG Electronically signed by : JULIANN SHARP, 06/06/2024 08:08:59
[2024-06-02 10:22] LABS: Basophils % 0.3 % (0.1-2.0); Eosinophils # 0.2 K/mm3 (0.0-0.4); Eosinophils % 2.5 % (0.1-12.0); Hematocrit 39.6 % (37.0-47.0); Hemoglobin 13.3 g/dL (12.2-16.2); Lymphocytes # 0.9 K/mm3 (0.7-4.5); Lymphocytes % 9.5 % (10-50); Mean Corpuscular HGB Conc 33.6 g/dL (31.8-35.4); Mean Corpuscular Hemoglobin 31.1 pg (27.0-31.2); Mean Corpuscular Volume 92.5 fl (81-99); Mean Platelet Volume 10.2 fl (7.4-10.4); Monocytes # 0.9 K/mm3 (0.1-1.0); Neutrophils # 7.4 K/mm3 (1.8-7.8); Neutrophils % 78.2 % (37.0-80.0); Platelet Count 281 K/mm3 (142-424); Red Blood Count 4.28 M/mm3 (4.20-5.40); Red Cell Distribution Width 14.3 % (11.5-17.5); White Blood Count 9.5 K/mm3 (4.8-10.8)
[2024-06-02 10:32] LABS: Alanine Aminotransferase 40 U/L (12-78); Albumin/Globulin Ratio 1.5 (1.1-1.8); Alkaline Phosphatase 93 U/L (38-126); Anion Gap 12.5 mEq/L (5-15); Aspartate Amino Transferase 39 U/L (14-36); Bilirubin,Total 0.7 mg/dl (0.2-1.3); Blood Urea Nitrogen 10 mg/dl (7-17); Calcium 9.5 mg/dl (8.4-10.2); Carbon Dioxide 20 mmol/L (22.0-30.0); Chloride 107 mmol/L (98-107); Creatinine Clearance Estimated 134 mL/min (50-200); Estimated Glomerular Filt Rate 67 ml/min (>60); GFR (African American) 82 ML/MIN (>60); Globulin 2.6 g/dL (1.3-3.2); Glucose 94 mg/dl (74-100); Lipase 132 U/L (23-300); Potassium 3.5 mmoL/L (3.5-5.1); Sodium 136 mmol/L (136-145); Total Protein,Serum 6.6 g/dl (6.3-8.2)
[2024-06-02] MEDS: LACTATED RINGERS 1000ML 1,000 ML 999 ML IV (10:35)
[2024-06-02] MEDS: ONDANSETRON 4MG/2ML VIAL 4 MG IV (10:35)
[2024-06-02 10:53] LABS: Troponin I < 0.01 ng/ml (0.00-0.034)
[2024-06-02 10:56] LABS: Influenza A, PCR Detected (NotDetected)
== END 2024-06-02 11:41 | disposition home or self-care (01) ==
PROVIDERS: Emergency Provider Emergency Medicine; PCP Internal Medicine
DX: J10.1 Influenza due to other identified influenza virus with other respiratory manifestations (principal); R11.0 Nausea; R05.9 Cough, unspecified; M79.10 Myalgia, unspecified site
CPT/HCPCS: 71045; 80053; 83690; 84484; 85025; 87636; 93005; 96361; 96374; 99284; J2405; J7120

== ENCOUNTER 2024-06-21 09:20 | Outpatient (CLI) | payer SELFPAY ==
[2024-06-21 18:37] LABS: Chol/HDL Ratio 5.2 (1-3.5); Cholesterol 220 mg/dl (140-200); HDL Cholesterol 42 mg/dl (40-60); Triglycerides 319 mg/dl (30-150); VLDL Cholesterol 64 mg/dL (0-40)
[2024-06-21 18:49] LABS: Direct LDL Cholesterol 110.32 mg/dL (100-129)
[2024-06-21 19:12] LABS: Microalbumin/Creatinine Ratio 24.2
[2024-06-21 19:14] LABS: Creatinine,Urine Random 84 mg/dL (Not Estab.)
== END 2024-06-21 23:59 | disposition home or self-care (01) ==
LOC: LAB.DROPOF 06-22 08:04
PROVIDERS: PCP Internal Medicine; Visit Provider Internal Medicine
DX: E88.09 Other disorders of plasma-protein metabolism, not elsewhere classified (principal); E78.2 Mixed hyperlipidemia
CPT/HCPCS: 80061; 82043; 82570

== ENCOUNTER 2024-08-30 08:44 | Outpatient (CLI) | payer OTHER, SELFPAY ==
--- NOTE | 2024-08-30 08:54 | XR_ITS ---
FINAL REPORT CLINICAL HISTORY: knee pain FINDINGS: LEFT KNEE 3 views of the left knee were obtained. There is no acute fracture or dislocation. There are moderate tricompartmental degenerative changes. A small joint effusion is present. Visualized joint spaces are normally aligned. Soft tissues are unremarkable. IMPRESSION: No acute bony abnormality. Reviewed, Interpreted and Dictated by Hamzah Sylvester MD Transcribed by Hailey Almazan Authenticated and [facility]
--- NOTE | 2024-08-30 08:54 | XR_ITS ---
FINAL REPORT CLINICAL HISTORY: pain FINDINGS: RIGHT KNEE 3 views of the right knee were obtained. There is no acute fracture or dislocation. There are moderate to severe tricompartmental degenerative changes. A moderate-sized joint effusion is present. Visualized joint spaces are normally aligned. Soft tissues are unremarkable. IMPRESSION: No acute bony abnormality. Reviewed, Interpreted and Dictated by Hamzah Sylvester MD Transcribed by Hailey Almazan Authenticated and [facility]
== END 2024-08-30 23:59 | disposition home or self-care (01) ==
LOC: RAD 08:45
PROVIDERS: PCP Family Medicine; Visit Provider Family Medicine
DX: M17.0 Bilateral primary osteoarthritis of knee (principal)
CPT/HCPCS: 73562

== ENCOUNTER 2024-10-26 10:01 | Outpatient (CLI) | payer OTHER, SELFPAY ==
[2024-10-26 19:11] LABS: Alanine Aminotransferase 27 U/L (12-78); Albumin Level 4.2 g/dl (3.5-5.0); Albumin/Globulin Ratio 1.6 (1.1-1.8); Alkaline Phosphatase 113 U/L (38-126); Anion Gap 11.4 mEq/L (5-15); Aspartate Amino Transferase 20 U/L (14-36); Bilirubin,Total 0.4 mg/dl (0.2-1.3); Blood Urea Nitrogen 15 mg/dl (7-17); Calcium 9.4 mg/dl (8.4-10.2); Carbon Dioxide 25 mmol/L (22.0-30.0); Chloride 107 mmol/L (98-107); Chol/HDL Ratio 3.6 (1-3.5); Cholesterol 178 mg/dl (140-200); Estimated Glomerular Filt Rate 77 ml/min (>60); GFR (African American) 93 ML/MIN (>60); Globulin 2.6 g/dL (1.3-3.2); Glucose 94 mg/dl (74-100); HDL Cholesterol 50 mg/dl (40-60); Potassium 4.4 mmoL/L (3.5-5.1); Sodium 139 mmol/L (136-145); Total Protein,Serum 6.8 g/dl (6.3-8.2); Triglycerides 203 mg/dl (30-150); VLDL Cholesterol 41 mg/dL (0-40)
[2024-10-26 19:22] LABS: Direct LDL Cholesterol 89.62 mg/dL (100-129)
== END 2024-10-26 23:59 | disposition home or self-care (01) ==
LOC: LAB.DROPOF 10-27 10:45
PROVIDERS: PCP Family Medicine; Visit Provider Family Medicine
DX: E78.5 Hyperlipidemia, unspecified (principal); I10 Essential (primary) hypertension
CPT/HCPCS: 80053; 80061